=== PATIENT | female | born 1955 | race Caucasian/White ===

== ENCOUNTER → 2020-02-10 07:58 | Outpatient (BNVA) | payer OTHER, SELFPAY | PROVIDERS: PCP Internal Medicine; Referring Provider Internal Medicine; Visit Provider Nurse Practitioner Gerontology | DX: Z76.89 Persons encountering health services in other specified circumstances (principal) ==

== ENCOUNTER 2020-03-25 12:11 | Outpatient (REF) | payer OTHER, SELFPAY ==
[2020-03-25 14:04] LABS: Hematocrit 41.6 % (37-47); Hemoglobin 12.7 g/dl (12.0-16.0); Mean Corpuscular HGB Conc 30.5 g/dl (31.0-35.0); Mean Corpuscular Hemoglobin 26.3 pg (27.0-33.0); Mean Corpuscular Volume 86.3 fL (80-98); Mean Platelet Volume 11.5 fL (9.4-12.3); Platelet Count 253 X10*3/uL (160-400); Red Blood Count 4.82 X10*6/uL (4.20-5.50); Red Cell Distribution Width 15.1 % (11.0-16.0); White Blood Count 8.1 X10*3/uL (4.8-10.8)
[2020-03-25 14:08] LABS: Estimated Average Glucose 148 mg/dL; Hemoglobin A1c % 6.8 %
[2020-03-25 14:37] LABS: Albumin Level 4.3 g/dL (3.5-5.0); Alkaline Phosphatase 267 U/L (39-117); Anion Gap 16 (12-20); Aspartate Amino Transferase 53 U/L (5-31); Bilirubin Total 0.7 mg/dL (0.0-1.0); Blood Urea Nitrogen 10 mg/dL (9-16); C Reactive Protein 0.63 mg/dL (< or = 0.50); Calcium 10.3 mg/dL (8.4-10.2); Carbon Dioxide 28 mmol/L (22-29); Chloride 102 mmol/L (96-108); Estimated Glomerular Filt Rate > 60; Glucose Random 150 mg/dL (60-115); Potassium 3.9 mmol/l (3.3-5.1); Sodium 142 mmol/L (135-145); Total Protein 7.3 g/dL (6.5-8.0)
[2020-03-25 14:51] LABS: Alanine Aminotransferase 644 U/L (0-31)
[2020-03-26 04:02] LABS: Hepatitis A Antibody IgG Nonreactive (Nonreactive); Hepatitis A Antibody IgM 0.17 Index (0-0.79); ~Hepatitis A Antibody IgG 0.61 S/CO (0.00-0.99); ~Hepatitis A Antibody IgM Nonreactive (Nonreactive)
[2020-03-27 01:42] LABS: Lyme Abs Screen <0.90 index
== END 2020-03-25 12:12 | disposition home or self-care (01) ==
LOC: HO.10HDL 12:11
PROVIDERS: Visit Provider Internal Medicine
DX: R79.89 Other specified abnormal findings of blood chemistry (principal); R10.9 Unspecified abdominal pain; E11.9 Type 2 diabetes mellitus without complications; I25.10 Atherosclerotic heart disease of native coronary artery without angina pectoris
CPT/HCPCS: 36415; 80053; 82550; 83036; 85027; 85610; 85730; 86140; 86618; 86708; 86709

== ENCOUNTER 2020-04-01 09:52 | Outpatient (REF) | payer OTHER, SELFPAY ==
[2020-04-01 14:41] LABS: Alanine Aminotransferase 90 U/L (0-31); Albumin Level 4.2 g/dL (3.5-5.0); Alkaline Phosphatase 187 U/L (39-117); Aspartate Amino Transferase 46 U/L (5-31); Bilirubin Direct 0.2 mg/dL (0.0-0.5); Bilirubin Total 0.5 mg/dL (0.0-1.0)
== END 2020-04-01 09:53 | disposition home or self-care (01) ==
LOC: HO.10HDL 09:52
PROVIDERS: PCP Internal Medicine; Visit Provider Internal Medicine
DX: R79.89 Other specified abnormal findings of blood chemistry (principal)
CPT/HCPCS: 80076

== ENCOUNTER 2020-07-02 08:53 | Outpatient (REF) | payer MEDICARE, OTHER, SELFPAY ==
[2020-07-02 10:14] LABS: MANUAL DIFF FLAG NO
[2020-07-02 10:19] LABS: Basophils Percent Auto 0.6 % (0-2); Eosinophils Absolute Auto 0.2 X10*3/uL (0.0-0.4); Eosinophils Percent Auto 3.1 % (0-4); Hematocrit 41.1 % (37-47); Hemoglobin 12.8 g/dl (12.0-16.0); Imm Gran Abs Auto 0.03 X10*3/uL (0.00-0.03); Imm Gran Pct Auto 0.4 % (0.0-0.4); Lymphocytes Absolute Auto 1.9 X10*3/uL (1.2-4.9); Lymphocytes Percent Auto 27.6 % (20-40); Mean Corpuscular HGB Conc 31.1 g/dl (31.0-35.0); Mean Corpuscular Hemoglobin 26.2 pg (27.0-33.0); Mean Platelet Volume 10.5 fL (9.4-12.3); Monocytes Absolute Auto 0.5 X10*3/uL (0.1-1.2); Neutrophils Absolute Auto 4.3 X10*3/uL (2.0-8.3); Neutrophils Percent Auto 61.3 % (45-73); Platelet Count 245 X10*3/uL (160-400); Red Blood Count 4.89 X10*6/uL (4.20-5.50); Red Cell Distribution Width 16.6 % (11.0-16.0)
[2020-07-02 10:30] LABS: Estimated Average Glucose 163 mg/dL; Hemoglobin A1c % 7.3 %
[2020-07-02 10:56] LABS: Alanine Aminotransferase 16 U/L (0-31); Albumin Level 4.2 g/dL (3.5-5.0); Alkaline Phosphatase 122 U/L (39-117); Anion Gap 13 (12-20); Aspartate Amino Transferase 15 U/L (5-31); Bilirubin Total 0.5 mg/dL (0.0-1.0); Blood Urea Nitrogen 12 mg/dL (9-16); Calcium 9.3 mg/dL (8.4-10.2); Carbon Dioxide 29 mmol/L (22-29); Chloride 102 mmol/L (96-108); Cholesterol 292 mg/dL; Estimated Glomerular Filt Rate > 60; Glucose Fasting 171 mg/dL (60-99); HDL Cholesterol 51 mg/dL; LDL Cholesterol Calculated 185 mg/dl; Potassium 4.2 mmol/L (3.3-5.1); Sodium 140 mmol/L (135-145); Total Protein 6.9 g/dL (6.5-8.0); Triglycerides 282 mg/dL
== END 2020-07-02 08:54 | disposition home or self-care (01) ==
LOC: HO.10HDL 08:53
PROVIDERS: Visit Provider Internal Medicine
DX: E11.9 Type 2 diabetes mellitus without complications (principal); I25.10 Atherosclerotic heart disease of native coronary artery without angina pectoris; E78.00 Pure hypercholesterolemia, unspecified
CPT/HCPCS: 36415; 80053; 80061; 83036; 85025

== ENCOUNTER 2020-07-26 10:16 | Outpatient (REF) | payer MEDICARE, OTHER, SELFPAY ==
[2020-07-26 14:18] LABS: Alanine Aminotransferase 16 U/L (0-31); Albumin Level 4.2 g/dL (3.5-5.0); Alkaline Phosphatase 130 U/L (39-117); Anion Gap 13 (12-20); Aspartate Amino Transferase 14 U/L (5-31); Bilirubin Total 0.4 mg/dL (0.0-1.0); Blood Urea Nitrogen 11 mg/dL (9-16); Calcium 9.7 mg/dL (8.4-10.2); Carbon Dioxide 30 mmol/L (22-29); Chloride 102 mmol/L (96-108); Estimated Glomerular Filt Rate > 60; Glucose Random 170 mg/dL (60-115); Potassium 4.5 mmol/L (3.3-5.1); Sodium 140 mmol/L (135-145)
[2020-07-26 14:52] LABS: Creatinine Urine 28.48 mg/dL; Microalbumin Urine < 5.0 mg/L
== END 2020-07-26 10:17 | disposition home or self-care (01) ==
LOC: HO.10HDL 10:16
PROVIDERS: Visit Provider Internal Medicine
DX: E11.9 Type 2 diabetes mellitus without complications (principal); I25.10 Atherosclerotic heart disease of native coronary artery without angina pectoris; E78.00 Pure hypercholesterolemia, unspecified; R74.8 Abnormal levels of other serum enzymes
CPT/HCPCS: 36415; 80053; 82043

== ENCOUNTER → 2020-08-17 08:00 | Outpatient (BNVA) | payer MEDICARE, OTHER, SELFPAY | PROVIDERS: PCP Internal Medicine; Visit Provider Nurse Practitioner Gerontology | DX: E11.40 Type 2 diabetes mellitus with diabetic neuropathy, unspecified (principal); E11.65 Type 2 diabetes mellitus with hyperglycemia; Z79.4 Long term (current) use of insulin; E78.5 Hyperlipidemia, unspecified; E55.9 Vitamin D deficiency, unspecified | CPT/HCPCS: 82947; 99212 ==

== ENCOUNTER 2020-10-04 07:42 | Outpatient (REF) | payer MEDICARE, OTHER, SELFPAY ==
[2020-10-04 09:12] LABS: Alanine Aminotransferase 21 U/L (0-31); Albumin Level 4.4 g/dL (3.5-5.0); Alkaline Phosphatase 115 U/L (39-117); Anion Gap 17 (12-20); Aspartate Amino Transferase 26 U/L (5-31); Bilirubin Total 0.5 mg/dL (0.0-1.0); Blood Urea Nitrogen 7 mg/dL (9-16); Calcium 9.7 mg/dL (8.4-10.2); Carbon Dioxide 26 mmol/L (22-29); Chloride 104 mmol/L (96-108); Cholesterol 167 mg/dL; Estimated Glomerular Filt Rate > 60; Glucose Random 151 mg/dL (60-115); HDL Cholesterol 46 mg/dL; LDL Cholesterol Calculated 74 mg/dl; Potassium 4.6 mmol/L (3.3-5.1); Sodium 142 mmol/L (135-145); Total Protein 7.1 g/dL (6.5-8.0); Triglycerides 237 mg/dL
== END 2020-10-04 07:43 | disposition home or self-care (01) ==
LOC: HO.LAB 07:42
PROVIDERS: PCP Internal Medicine; Visit Provider Internal Medicine
DX: E78.5 Hyperlipidemia, unspecified (principal)
CPT/HCPCS: 36415; 80053; 80061

== ENCOUNTER → 2020-11-15 07:31 | Outpatient (BNVA) | payer MEDICARE, OTHER, SELFPAY | PROVIDERS: PCP Internal Medicine; Visit Provider Nurse Practitioner Gerontology | DX: E11.40 Type 2 diabetes mellitus with diabetic neuropathy, unspecified (principal); E11.65 Type 2 diabetes mellitus with hyperglycemia; E78.5 Hyperlipidemia, unspecified; E55.9 Vitamin D deficiency, unspecified; Z79.4 Long term (current) use of insulin | CPT/HCPCS: 82947; 99212 ==

== ENCOUNTER 2021-01-06 08:14 | Outpatient (REF) | payer MEDICARE, OTHER, SELFPAY ==
[2021-01-06 10:13] LABS: MANUAL DIFF FLAG NO
[2021-01-06 10:16] LABS: Basophils Absolute Auto 0.1 X10*3/uL (0.0-0.2); Basophils Percent Auto 0.8 % (0-2); Eosinophils Absolute Auto 0.3 X10*3/uL (0.0-0.4); Eosinophils Percent Auto 3.4 % (0-4); Hematocrit 43.1 % (37-47); Hemoglobin 13.7 g/dl (12.0-16.0); Imm Gran Abs Auto 0.01 X10*3/uL (0.00-0.03); Imm Gran Pct Auto 0.1 % (0.0-0.4); Lymphocytes Absolute Auto 2.3 X10*3/uL (1.2-4.9); Lymphocytes Percent Auto 27.2 % (20-40); Mean Corpuscular HGB Conc 31.8 g/dl (31.0-35.0); Monocytes Absolute Auto 0.5 X10*3/uL (0.1-1.2); Monocytes Percent Auto 6.3 % (2-11); Neutrophils Absolute Auto 5.2 X10*3/uL (2.0-8.3); Neutrophils Percent Auto 62.2 % (45-73); Platelet Count 241 X10*3/uL (160-400); Red Cell Distribution Width 14.6 % (11.0-16.0); White Blood Count 8.3 X10*3/uL (4.8-10.8)
[2021-01-06 10:37] LABS: Estimated Average Glucose 192 mg/dL; Hemoglobin A1c % 8.3 %
[2021-01-06 10:47] LABS: Alanine Aminotransferase 23 U/L (0-31); Albumin Level 4.3 g/dL (3.5-5.0); Alkaline Phosphatase 125 U/L (39-117); Anion Gap 13 (12-20); Aspartate Amino Transferase 23 U/L (5-31); Bilirubin Total 0.5 mg/dL (0.0-1.0); Blood Urea Nitrogen 10 mg/dL (9-16); Calcium 9.7 mg/dL (8.4-10.2); Carbon Dioxide 28 mmol/L (22-29); Chloride 103 mmol/L (96-108); Estimated Glomerular Filt Rate > 60; Glucose Fasting 174 mg/dL (60-99); Potassium 4.5 mmol/L (3.3-5.1); Sodium 139 mmol/L (135-145); Total Protein 6.8 g/dL (6.5-8.0)
== END 2021-01-06 08:15 | disposition home or self-care (01) ==
LOC: HO.10HDL 08:14
PROVIDERS: Visit Provider Internal Medicine
DX: I10 Essential (primary) hypertension (principal); E11.9 Type 2 diabetes mellitus without complications; I25.10 Atherosclerotic heart disease of native coronary artery without angina pectoris; G25.81 Restless legs syndrome; G43.909 Migraine, unspecified, not intractable, without status migrainosus
CPT/HCPCS: 36415; 80053; 83036; 85025

== ENCOUNTER 2021-02-02 07:24 | Outpatient (REF) | payer MEDICARE, OTHER, SELFPAY ==
--- NOTE | ~2021-02-02 | MM_ITS ---
EXAMINATION: MM SCREENING DIGITAL BREAST TOMOSYNTHESIS, BILATERAL CLINICAL INFORMATION: Screening. Asymptomatic. The lifetime risk of breast cancer based on the Tyrer-Cuzick Model is 7%. COMPARISON: Mammography: 11/17/2019, 02/25/2018, 01/27/2017 TECHNIQUE: Digital breast tomosynthesis is performed in both the craniocaudal and mediolateral oblique views along with computer-aided detection (CAD). Synthesized 2D images are generated from the tomosynthesis. FINDINGS: There are scattered areas of fibroglandular density (ACR BI-RADS breast composition Category b). There are no significant masses, abnormal calcifications, or other abnormalities. Parenchymal pattern is similar to prior exams. No developing density. Again, there are scattered bilateral fine and mildly coarse round calcifications in each breast. No significant changes. MM/MM tomosynthesis screening BI IMPRESSION: No mammographic evidence of malignancy. ASSESSMENT: BI-RADS 2: Benign RECOMMENDATION: Routine annual mammography screening. This patient's information was entered into a reminder system with a target due date for their next mammogram.
== END 2021-02-02 07:25 | disposition home or self-care (01) ==
LOC: HO.MAMMO 07:24
PROVIDERS: PCP Internal Medicine; Visit Provider Internal Medicine
DX: Z12.31 Encounter for screening mammogram for malignant neoplasm of breast (principal)
CPT/HCPCS: 77063; 77067

== ENCOUNTER 2021-03-24 11:06 | Outpatient (REF) | payer MEDICARE, OTHER, SELFPAY ==
[2021-03-24 14:10] LABS: Anion Gap 11 (12-20); Blood Urea Nitrogen 10 mg/dL (9-16); Calcium 9.5 mg/dL (8.4-10.2); Carbon Dioxide 29 mmol/L (22-29); Chloride 103 mmol/L (96-108); Estimated Glomerular Filt Rate > 60; Glucose Random 203 mg/dL (60-115); Potassium 4.5 mmol/L (3.3-5.1); Sodium 138 mmol/L (135-145)
[2021-03-24 14:15] LABS: Estimated Average Glucose 189 mg/dL; Hemoglobin A1c % 8.2 %
[2021-03-24 14:30] LABS: Creatinine Urine 122.01 mg/dL; Microalbum/Creatinine Ratio Ur 18.8 ug/mg cr
== END 2021-03-24 11:07 | disposition home or self-care (01) ==
LOC: HO.10HDL 11:06
PROVIDERS: Visit Provider Internal Medicine
DX: I25.10 Atherosclerotic heart disease of native coronary artery without angina pectoris (principal); I10 Essential (primary) hypertension; E11.9 Type 2 diabetes mellitus without complications; E78.00 Pure hypercholesterolemia, unspecified
CPT/HCPCS: 36415; 80048; 82043; 83036

== ENCOUNTER → 2021-03-29 07:31 | Outpatient (BNVA) | payer MEDICARE, OTHER, SELFPAY | PROVIDERS: PCP Internal Medicine; Visit Provider Nurse Practitioner Gerontology | DX: E11.40 Type 2 diabetes mellitus with diabetic neuropathy, unspecified (principal); E11.65 Type 2 diabetes mellitus with hyperglycemia; E78.5 Hyperlipidemia, unspecified; E55.9 Vitamin D deficiency, unspecified; Z79.4 Long term (current) use of insulin; Z96.41 Presence of insulin pump (external) (internal) | CPT/HCPCS: 82947; 99212 ==

== ENCOUNTER → 2021-03-30 09:01 | Outpatient (BNVA) | payer MEDICARE, OTHER, SELFPAY | PROVIDERS: PCP Internal Medicine; Visit Provider Registered Nurse Diabetes Educator | DX: E11.40 Type 2 diabetes mellitus with diabetic neuropathy, unspecified (principal); Z79.4 Long term (current) use of insulin | CPT/HCPCS: 99211 ==

== ENCOUNTER → 2021-04-06 09:25 | Outpatient (BNVA) | payer MEDICARE, OTHER, SELFPAY | PROVIDERS: PCP Internal Medicine; Visit Provider Registered Nurse Diabetes Educator | DX: E11.40 Type 2 diabetes mellitus with diabetic neuropathy, unspecified (principal); Z79.4 Long term (current) use of insulin | CPT/HCPCS: Q3014 ==

== ENCOUNTER → 2021-05-09 09:49 | Outpatient (BNVA) | payer MEDICARE, OTHER, SELFPAY | PROVIDERS: PCP Internal Medicine; Visit Provider Registered Nurse Diabetes Educator | DX: E11.40 Type 2 diabetes mellitus with diabetic neuropathy, unspecified (principal); Z79.4 Long term (current) use of insulin | CPT/HCPCS: Q3014 ==

== ENCOUNTER → 2021-06-28 07:43 | Outpatient (BNVA) | payer MEDICARE, OTHER, SELFPAY | PROVIDERS: PCP Internal Medicine; Visit Provider Nurse Practitioner Gerontology | DX: E11.40 Type 2 diabetes mellitus with diabetic neuropathy, unspecified (principal); E11.65 Type 2 diabetes mellitus with hyperglycemia; E78.5 Hyperlipidemia, unspecified; E55.9 Vitamin D deficiency, unspecified; Z79.4 Long term (current) use of insulin | CPT/HCPCS: 82947; 83036; 99212 ==

== ENCOUNTER 2021-07-01 14:44 | Outpatient (REF) | payer MEDICARE, OTHER, SELFPAY ==
--- NOTE | ~2021-07-01 | CT_ITS ---
EXAMINATION: CT CHEST SCREENING CLINICAL INFORMATION: Personal history of nicotine dependence. COMPARISON: None. TECHNIQUE: Multidetector volumetric CT imaging of the chest is performed without contrast using low dose technique. Additional 2D coronal and sagittal reformatted images and axial 3D maximum intensity projection (MIP) images are generated on the CT workstation. This CT examination was performed using dose optimization techniques as appropriate, variously including the following: *Automated exposure control *Adjustment of mA and/or kV according to patient size (this includes techniques or standardized protocols for targeted exams where dose is matched to indication/reason for exam; i.e. extremities or head) *Use of iterative reconstruction technique DLP: 75 mGy-cm FINDINGS: LUNGS: The lungs are well expanded and clear of acute pneumonic process. There are punctate ground-glass nodular opacities measuring 2 mm in the right upper lobe axial image 22/4, a 2 mm nodule in the right major fissure axial image 26/4, a peripherally based 2 mm nodule right upper lobe axial image 26/4, a subpleural-based 2 mm nodule right lower lobe axial image 37/4. No additional nodules seen. No acute pneumonic consolidation. MEDIASTINUM: The thyroid lobes are symmetrical and normal. The central trachea and bronchi are widely patent. Heart size and the great vessels are normal caliber. Small shotty precarinal lymph node is seen measuring 8 mm. There is trace coronary artery calcifications present. No pericardial effusion seen. No abnormal-sized mediastinal or hilar lymph nodes. PLEURA: There is no pleural effusion. No pleural mass or thickening. AXILLA: No lymphadenopathy. UPPER ABDOMEN: Visualized liver, spleen, pancreas and bilateral adrenal glands are unremarkable. OSSEOUS STRUCTURES: No aggressive lytic or sclerotic process seen. There is mild ventral spondylosis. CT/CT lung screening IMPRESSION: Small tumor nodules as described above. No acute consolidation or mass seen. No abnormal lymphadenopathy. ASSESSMENT: Lung-RADS category 2: Benign. RECOMMENDATION: Low-dose annual CT chest exam.
== END 2021-07-01 14:45 | disposition home or self-care (01) ==
LOC: HO.CT 14:44
PROVIDERS: Visit Provider Physician Assistant Medical
DX: Z12.2 Encounter for screening for malignant neoplasm of respiratory organs (principal); Z87.891 Personal history of nicotine dependence
CPT/HCPCS: 71271; G0296

== ENCOUNTER 2021-08-09 08:00 | Outpatient (REF) | payer MEDICARE, OTHER, SELFPAY ==
[2021-08-09 09:23] LABS: Glucose Fasting 187 mg/dL (60-99)
[2021-08-10 06:36] LABS: C Peptide 2.28 ng/mL (0.80-3.85)
[2021-08-12 22:02] LABS: Glutamic acid decarboxylase Ab <5 IU/mL (<5)
== END 2021-08-09 08:01 | disposition home or self-care (01) ==
LOC: HO.LAB 08:00
PROVIDERS: Absent Provider Nurse Practitioner Gerontology; PCP Internal Medicine; Visit Provider Registered Nurse Diabetes Educator
DX: E11.40 Type 2 diabetes mellitus with diabetic neuropathy, unspecified (principal); Z79.4 Long term (current) use of insulin
CPT/HCPCS: 36415; 82947; 84681; 86341; 99211

== ENCOUNTER → 2021-09-05 11:25 | Outpatient (BNVA) | payer MEDICARE, OTHER, SELFPAY | PROVIDERS: PCP Internal Medicine; Visit Provider Registered Nurse Diabetes Educator | DX: E11.40 Type 2 diabetes mellitus with diabetic neuropathy, unspecified (principal); Z79.4 Long term (current) use of insulin; Z96.41 Presence of insulin pump (external) (internal) | CPT/HCPCS: 99211 ==

== ENCOUNTER → 2021-10-05 08:00 | Outpatient (BNVA) | payer MEDICARE, OTHER, SELFPAY | PROVIDERS: PCP Internal Medicine; Visit Provider Registered Nurse Diabetes Educator | DX: Z46.81 Encounter for fitting and adjustment of insulin pump (principal); E11.40 Type 2 diabetes mellitus with diabetic neuropathy, unspecified; Z79.4 Long term (current) use of insulin | CPT/HCPCS: 99211 ==

== ENCOUNTER 2021-10-27 06:34 | Outpatient (REF) | payer MEDICARE, OTHER, SELFPAY ==
[2021-10-27 06:52] LABS: MANUAL DIFF FLAG NO
[2021-10-27 07:24] LABS: Basophils Percent Auto 0.6 % (0-2); Eosinophils Absolute Auto 0.2 X10*3/uL (0.0-0.4); Hematocrit 42.6 % (37.0-47.0); Hemoglobin 13.6 g/dl (12.0-16.0); Imm Gran Abs Auto 0.03 X10*3/uL (0.00-0.03); Imm Gran Pct Auto 0.4 % (0.0-0.4); Lymphocytes Percent Auto 29.2 % (20-40); Mean Corpuscular HGB Conc 31.9 g/dl (31.0-35.0); Mean Corpuscular Hemoglobin 28.6 pg (27.0-33.0); Mean Corpuscular Volume 89.5 fL (80.0-98.0); Mean Platelet Volume 10.4 fL (9.4-12.3); Monocytes Absolute Auto 0.5 X10*3/uL (0.1-1.2); Monocytes Percent Auto 6.5 % (2-11); Neutrophils Absolute Auto 4.2 x10*3/uL (2.0-8.3); Neutrophils Percent Auto 60.3 % (45-73); Platelet Count 213 X10*3/uL (160-400); Red Blood Count 4.76 X10*6/uL (4.20-5.50); Red Cell Distribution Width 14.4 % (11.0-16.0); White Blood Count 6.9 X10*3/uL (4.8-10.8)
[2021-10-27 07:43] LABS: Estimated Average Glucose 171 mg/dL; Hemoglobin A1c % 7.6 %
[2021-10-27 07:44] LABS: Alanine Aminotransferase 19 U/L (0-31); Albumin Level 4.1 g/dL (3.5-5.0); Alkaline Phosphatase 127 U/L (39-117); Anion Gap 14 (12-20); Aspartate Amino Transferase 18 U/L (5-31); Bilirubin Total 0.5 mg/dL (0.0-1.0); Blood Urea Nitrogen 9 mg/dL (9-16); Calcium 9.1 mg/dL (8.4-10.2); Carbon Dioxide 27 mmol/L (22-29); Chloride 103 mmol/L (96-108); Estimated Glomerular Filt Rate > 60; Glucose Fasting 164 mg/dL (60-99); Potassium 4.3 mmol/L (3.3-5.1); Sodium 140 mmol/L (135-145); Total Protein 6.9 g/dL (6.5-8.0)
[2021-10-27 07:47] LABS: Alanine Aminotransferase 19 U/L (0-31); Albumin Level 4.1 g/dL (3.5-5.0); Alkaline Phosphatase 127 U/L (39-117); Anion Gap 15 (12-20); Aspartate Amino Transferase 18 U/L (5-31); Bilirubin Total 0.5 mg/dL (0.0-1.0); Blood Urea Nitrogen 10 mg/dL (9-16); Calcium 8.9 mg/dL (8.4-10.2); Carbon Dioxide 28 mmol/L (22-29); Chloride 103 mmol/L (96-108); Cholesterol 170 mg/dL; Estimated Glomerular Filt Rate > 60; Glucose Fasting 164 mg/dL (60-99); HDL Cholesterol 52 mg/dL; LDL Cholesterol Calculated 80 mg/dl; Sodium 141 mmol/L (135-145); Triglycerides 192 mg/dL
[2021-10-27 08:09] LABS: Vitamin D 25-OH Total 46.9 ng/mL (>30)
[2021-10-29 10:47] LABS: LDL Cholesterol Direct 103 mg/dL (<100)
== END 2021-10-27 06:35 | disposition home or self-care (01) ==
LOC: HO.LAB 06:34
PROVIDERS: Absent Provider Internal Medicine; PCP Internal Medicine; Visit Provider Nurse Practitioner Gerontology
DX: E78.00 Pure hypercholesterolemia, unspecified (principal); G25.81 Restless legs syndrome; I10 Essential (primary) hypertension; I25.10 Atherosclerotic heart disease of native coronary artery without angina pectoris; E55.9 Vitamin D deficiency, unspecified; E11.40 Type 2 diabetes mellitus with diabetic neuropathy, unspecified; Z79.4 Long term (current) use of insulin
CPT/HCPCS: 36415; 80053; 80061; 82306; 83036; 83721; 85025

== ENCOUNTER → 2021-11-17 14:53 | Outpatient (BNVA) | payer MEDICARE, OTHER, SELFPAY | PROVIDERS: PCP Internal Medicine; Visit Provider Registered Nurse Diabetes Educator | DX: Z46.81 Encounter for fitting and adjustment of insulin pump (principal); E11.40 Type 2 diabetes mellitus with diabetic neuropathy, unspecified | CPT/HCPCS: 99211 ==

== ENCOUNTER 2022-02-08 07:26 | Outpatient (REF) | payer MEDICARE, OTHER, SELFPAY ==
--- NOTE | ~2022-02-08 | MM_ITS ---
EXAMINATION: MM SCREENING DIGITAL BREAST TOMOSYNTHESIS, BILATERAL CLINICAL INFORMATION: Screening. Asymptomatic. The lifetime risk of breast cancer based on the Tyrer-Cuzick Model is 6%. COMPARISON: Mammography: February 02, 2021 and studies dating back to June 01, 2011 TECHNIQUE: Digital breast tomosynthesis is performed in both the craniocaudal and mediolateral oblique views along with computer-aided detection (CAD). Synthesized 2D images are generated from the tomosynthesis. FINDINGS: There are scattered areas of fibroglandular density (ACR BI-RADS breast composition Category b). There are no significant masses, abnormal calcifications, or other abnormalities. MM/MM tomosynthesis screening BI IMPRESSION: No significant changes from prior exam. ASSESSMENT: BI-RADS 1: Negative RECOMMENDATION: Routine annual mammography screening. This patient's information was entered into a reminder system with a target due date for their next mammogram.
== END 2022-02-08 07:27 | disposition home or self-care (01) ==
LOC: HO.MAMMO 07:26
PROVIDERS: PCP Internal Medicine; Visit Provider Internal Medicine
DX: Z12.31 Encounter for screening mammogram for malignant neoplasm of breast (principal)
CPT/HCPCS: 77063; 77067

== ENCOUNTER → 2022-02-21 07:58 | Outpatient (BNVA) | payer MEDICARE, OTHER, SELFPAY | PROVIDERS: PCP Internal Medicine; Visit Provider Internal Medicine Endocrinology, Diabetes & Metabolism | DX: E11.40 Type 2 diabetes mellitus with diabetic neuropathy, unspecified (principal); Z79.4 Long term (current) use of insulin; Z96.41 Presence of insulin pump (external) (internal) | CPT/HCPCS: 36415; 80053; 80061; 82043; 82947; 83036; 85025; 99212 ==

== ENCOUNTER 2022-02-21 08:54 | Outpatient (REF) | payer MEDICARE, OTHER, SELFPAY ==
[2022-02-21 10:34] LABS: MANUAL DIFF FLAG NO
[2022-02-21 10:43] LABS: Basophils Absolute Auto 0.1 X10*3/uL (0.0-0.2); Basophils Percent Auto 0.7 % (0-2); Eosinophils Absolute Auto 0.1 X10*3/uL (0.0-0.4); Eosinophils Percent Auto 1.7 % (0-4); Hematocrit 41.2 % (37.0-47.0); Hemoglobin 13.1 g/dl (12.0-16.0); Imm Gran Abs Auto 0.02 X10*3/uL (0.00-0.03); Imm Gran Pct Auto 0.3 % (0.0-0.4); Lymphocytes Absolute Auto 1.7 X10*3/uL (1.2-4.9); Mean Corpuscular HGB Conc 31.8 g/dl (31.0-35.0); Mean Corpuscular Hemoglobin 28.5 pg (27.0-33.0); Mean Corpuscular Volume 89.8 fL (80.0-98.0); Monocytes Absolute Auto 0.5 X10*3/uL (0.1-1.2); Monocytes Percent Auto 6.4 % (2-11); Neutrophils Absolute Auto 4.8 x10*3/uL (2.0-8.3); Neutrophils Percent Auto 66.9 % (45-73); Platelet Count 194 X10*3/uL (160-400); Red Blood Count 4.59 X10*6/uL (4.20-5.50); Red Cell Distribution Width 14.2 % (11.0-16.0); White Blood Count 7.2 X10*3/uL (4.8-10.8)
[2022-02-21 11:11] LABS: Estimated Average Glucose 186 mg/dL; Hemoglobin A1c % 8.1 %
[2022-02-21 11:12] LABS: Alanine Aminotransferase 29 U/L (0-31); Albumin Level 4.1 g/dL (3.5-5.0); Alkaline Phosphatase 107 U/L (39-117); Anion Gap 16 (12-20); Aspartate Amino Transferase 27 U/L (5-31); Bilirubin Total 0.2 mg/dL (0.0-1.0); Blood Urea Nitrogen 10 mg/dL (9-16); Carbon Dioxide 25 mmol/L (22-29); Chloride 101 mmol/L (96-108); Cholesterol 162 mg/dL; Estimated Glomerular Filt Rate > 60; Glucose Fasting 177 mg/dL (60-99); HDL Cholesterol 50 mg/dL; LDL Cholesterol Calculated 75 mg/dl; Potassium 4.3 mmol/L (3.3-5.1); Sodium 138 mmol/L (135-145); Total Protein 6.6 g/dL (6.5-8.0); Triglycerides 186 mg/dL
[2022-02-21 12:32] LABS: Creatinine Urine 83.94 mg/dL; Microalbum/Creatinine Ratio Ur 17.8 ug/mg cr
== END 2022-02-21 08:55 | disposition home or self-care (01) ==
LOC: HO.10HDL 08:54
PROVIDERS: Visit Provider Internal Medicine
DX: Z13.89 Encounter for screening for other disorder (principal)
CPT/HCPCS: 36415; 80053; 80061; 82043; 83036; 85025

== ENCOUNTER 2022-04-03 07:55 | Outpatient (REF) | payer MEDICARE, OTHER, SELFPAY ==
--- NOTE | ~2022-04-03 | US_ITS ---
EXAMINATION: US ABDOMEN COMPLETE CLINICAL INFORMATION: Right upper quadrant pain. COMPARISON: None TECHNIQUE: Real-time imaging of the abdominal viscera. FINDINGS: PANCREAS: Normal. ABDOMINAL AORTA: The proximal, mid, and distal segments are normal in caliber. INFERIOR VENA CAVA: Visualized portions are normal. LIVER: Liver size is enlarged measuring 20.3 cm in length. The liver contour is normal. There is increased liver echogenicity with areas of focal fatty sparing. No focal hepatic lesion. There is no intrahepatic biliary duct dilatation seen. GALLBLADDER: Surgically absent. COMMON BILE DUCT: Normal in caliber measuring 0.5 cm in diameter. RIGHT KIDNEY: Normal. No hydronephrosis. No renal calculi or focal parenchymal lesions. The kidney measures 11.6 cm in maximum dimension. LEFT KIDNEY: A prominent dromedary hump is noted. No hydronephrosis. No renal calculi or focal parenchymal lesions. The kidney measures 11.8 cm in maximum dimension. SPLEEN: Normal. The spleen measures 12.7 cm in maximum dimension. FREE FLUID: None. US/US abdomen complete IMPRESSION: Increased liver echogenicity with focal fatty sparing. Mild hepatomegaly. Prominent dromedary hump left kidney. Rest of the abdominal ultrasound is unremarkable.
== END 2022-04-03 07:56 | disposition home or self-care (01) ==
LOC: HO.US 07:55
PROVIDERS: Visit Provider Internal Medicine
DX: R10.11 Right upper quadrant pain (principal); Z90.49 Acquired absence of other specified parts of digestive tract
CPT/HCPCS: 76700

== ENCOUNTER → 2022-04-04 07:52 | Outpatient (BNVA) | payer MEDICARE, OTHER, SELFPAY | PROVIDERS: PCP Internal Medicine; Visit Provider Registered Nurse Diabetes Educator | DX: E11.40 Type 2 diabetes mellitus with diabetic neuropathy, unspecified (principal); Z79.4 Long term (current) use of insulin; Z96.41 Presence of insulin pump (external) (internal) | CPT/HCPCS: 99211 ==

== ENCOUNTER 2022-05-16 10:27 | Outpatient (REF) | payer MEDICARE, OTHER, SELFPAY ==
--- NOTE | ~2022-05-16 | US_ITS ---
EXAMINATION: US LOWER EXTREMITY (REFLUX EXAM), LEFT CLINICAL INDICATION: Varicose veins COMPARISON: None. TECHNIQUE: Color flow triplex imaging and compression Doppler was performed to evaluate both the deep and the superficial systems of the left lower extremity. To evaluate the superficial system, the examination was performed in the upright position. Color-flow Doppler ultrasound and compression ultrasound were utilized. In addition, maneuvers were utilized to demonstrate reflux. FINDINGS: 1. DEEP VENOUS DOPPLER ULTRASOUND: Common Femoral Vein: Compressible, normal respiratory variation and augmented flow. Femoral Vein: Compressible, normal color flow and augmentation. Popliteal Vein: Compressible, normal augmentation. Deep Reflux: There is no evidence of reflux in the deep system in either the common femoral vein or the popliteal vein. There is no evidence of a Bills's cyst. 2. SUPERFICIAL VENOUS DOPPLER ULTRASOUND: GREAT SAPHENOUS VEIN: Saphenofemoral Junction: 1.3 cm; Reflux: 0 ms Proximal Thigh: 0.8 cm; Reflux: 3388 ms Mid Thigh: 0.5 cm; Reflux: 0 ms Above Knee: 0.4 cm; Reflux: 0 ms At Knee: 0.3 cm; Reflux: 0 ms Below Knee: 0.3 cm; Reflux: 732 ms Mid Calf: 0.2 cm; Reflux: 0 ms Ankle: 0.3 cm; Reflux: 1096 ms DUPLICATED MEDIAL GREAT SAPHENOUS VEIN: Diameter: None Imaged Reflux: NA DUPLICATED LATERAL GREAT SAPHENOUS VEIN: Proximal: 0.3 cm; Reflux: 2288 ms Distal: 0.3 cm; Reflux: 0 ms SMALL SAPHENOUS VEIN: Proximal: 0.3 cm; Reflux: 0 ms Distal: 0.3 cm; Reflux: 0 ms VEIN OF GIACOMINI: None Imaged. PERFORATORS: Location: [place]cal[place] (2) Size: 0.2-0.3 cm Reflux: NA VARICOSITIES: Location: Numerous through the calf and thigh Size: 0.3-0.5 cm Reflux: All demonstrate reflux varying from 584 ms-3308 ms US/US venous duplex LE LT IMPRESSION: 1. Left great saphenous venous insufficiency. 2. Multiple refluxing varicosities throughout the left lower extremity.
== END 2022-05-16 10:28 | disposition home or self-care (01) ==
LOC: HO.US 10:27
PROVIDERS: PCP Internal Medicine; Visit Provider Internal Medicine
DX: R22.43 Localized swelling, mass and lump, lower limb, bilateral (principal); I83.90 Asymptomatic varicose veins of unspecified lower extremity
CPT/HCPCS: 93971

== ENCOUNTER → 2022-05-25 08:05 | Outpatient (BNVA) | payer MEDICARE, OTHER, SELFPAY | PROVIDERS: PCP Internal Medicine; Visit Provider Internal Medicine Endocrinology, Diabetes & Metabolism | DX: Z79.4 Long term (current) use of insulin (principal); Z96.41 Presence of insulin pump (external) (internal) | CPT/HCPCS: 82947; 83036; 99212 ==

== ENCOUNTER 2022-08-14 08:57 | Outpatient (REF) | payer MEDICARE, OTHER, SELFPAY ==
--- NOTE | ~2022-08-14 | CT_ITS ---
EXAMINATION: CT CHEST SCREENING CLINICAL INFORMATION: Personal history of nicotine dependence. One pack per day for 50 years[address] Current smoker. CT lung 07/01/2021. COMPARISON: CT chest 07/01/2021 TECHNIQUE: Multidetector volumetric CT imaging of the chest is performed without contrast using low dose technique. Additional 2D coronal and sagittal reformatted images and axial 3D maximum intensity projection (MIP) images are generated on the CT workstation. This CT examination was performed using dose optimization techniques as appropriate, variously including the following: *Automated exposure control *Adjustment of mA and/or kV according to patient size (this includes techniques or standardized protocols for targeted exams where dose is matched to indication/reason for exam; i.e. extremities or head) *Use of iterative reconstruction technique DLP: 75 mGy-cm. FINDINGS: LUNGS: The lungs are well expanded and clear of pneumonic process. There are punctate right upper lobe subpleural 2 mm nodules image 408/6, 385/6, 369/6, 329/6. Ill-defined ground-glass density seen in right upper lobe axial image 329/6, ground-glass 2 mm nodule left lower lobe superior segment image 336/6, focal thickening along the right major fissure image 402/6, ground-glass opacities in right middle lobe. MEDIASTINUM: The thyroid lobes are symmetrical and normal. Heart size and the great vessels are normal caliber. Central trachea and bronchi are widely patent. No abnormal-sized mediastinal or hilar lymph nodes. CORONARY ARTERY CALCIFICATION: Moderate coronary artery calcifications are seen. PLEURA: There is no pleural effusion. No pleural mass or thickening. AXILLA: No lymphadenopathy. UPPER ABDOMEN: Visualized liver, spleen, pancreas and bilateral adrenal glands are unremarkable. OSSEOUS STRUCTURES: No aggressive lytic or sclerotic process seen. There is mild spondylosis throughout. CT/CT lung screening IMPRESSION: Scattered 2 mm nodules and groundglass density as described above. Few new subpleural 2 mm nodules are more apparent on the present exam. The ground-glass densities are unchanged. ASSESSMENT: Lung-RADS category 2: Benign. RECOMMENDATION: Low-dose annual CT chest.
== END 2022-08-14 08:58 | disposition home or self-care (01) ==
LOC: HO.CT 08:57
PROVIDERS: PCP Internal Medicine; Visit Provider Physician Assistant Medical
DX: Z12.2 Encounter for screening for malignant neoplasm of respiratory organs (principal); Z87.891 Personal history of nicotine dependence
CPT/HCPCS: 71271

== ENCOUNTER 2022-08-24 06:32 | Outpatient (REF) | payer MEDICARE, OTHER, SELFPAY ==
[2022-08-24 07:47] LABS: Anion Gap 14 (12-20); Blood Urea Nitrogen 11 mg/dL (9-16); Calcium 9.9 mg/dL (8.4-10.2); Carbon Dioxide 27 mmol/L (22-29); Chloride 103 mmol/L (96-108); Estimated Glomerular Filt Rate > 60; Glucose Random 118 mg/dL (60-115); Potassium 4.2 mmol/L (3.3-5.1); Sodium 140 mmol/L (135-145)
== END 2022-08-24 06:33 | disposition home or self-care (01) ==
LOC: HO.LAB 06:32
PROVIDERS: PCP Internal Medicine; Visit Provider Internal Medicine Endocrinology, Diabetes & Metabolism
DX: E11.40 Type 2 diabetes mellitus with diabetic neuropathy, unspecified (principal); Z79.4 Long term (current) use of insulin
CPT/HCPCS: 36415; 80048

== ENCOUNTER → 2022-08-30 08:18 | Outpatient (BNVA) | payer MEDICARE, OTHER, SELFPAY | PROVIDERS: PCP Internal Medicine; Visit Provider Internal Medicine Endocrinology, Diabetes & Metabolism | DX: E11.40 Type 2 diabetes mellitus with diabetic neuropathy, unspecified (principal); Z79.4 Long term (current) use of insulin | CPT/HCPCS: 82947; 83036; 99212 ==

== ENCOUNTER → 2022-10-12 08:29 | Outpatient (BNVA) | payer MEDICARE, OTHER, SELFPAY | PROVIDERS: PCP Internal Medicine; Visit Provider Registered Nurse Diabetes Educator | DX: E11.40 Type 2 diabetes mellitus with diabetic neuropathy, unspecified (principal); Z46.81 Encounter for fitting and adjustment of insulin pump | CPT/HCPCS: 99211 ==

== ENCOUNTER 2022-12-14 07:55 | Outpatient (AMB) | payer MEDICARE, OTHER, SELFPAY ==
[2022-12-14 07:59] VITALS: BP 100/60; PULSE 60; BMI 34.5
--- NOTE | 2022-12-14 07:59 | A.OFFVIS_ITS ---
Intake Vital Signs 12/14/22 07:59 Height 5 ft 8 in Weight 227 lb 1.218 oz BMI 34.5 BP 100/60 Blood Pressure Location Lt brachial Position Sitting Pulse 60 Pulse Source Pulse Oximeter Intake Visit Reasons: f/u Type 2 DM Intake Note: Patient presents today to follow up on Type 2 Diabetes Mellitus. 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: No Accompanied by: Self / Same As Patient Allergies azithromycin [From ZITHROMAX] Allergy (Unknown, Verified 12/14/22 08:04) RASH bee pollen [BEE STINGS] Allergy (Unknown, Verified 12/14/22 08:04) ANAPHYLAXIS erythromycin base [ERYTHROMYCIN BASE] Allergy (Unknown, Verified 12/14/22 08:04) RASH morphine [MORPHINE] Allergy (Unknown, Verified 12/14/22 08:04) BRADYCARDIA, heart rate slows down neomycin Allergy (Unknown, Verified 12/14/22 08:04) adema bees Allergy (Unknown, Uncoded 08/30/22 08:24) anaphylaxis Taurine Allergy (Unknown, Uncoded 08/30/22 08:24) hives Medication List - Last Reconciled 12/14/22 by Finn Sales MD albuterol sulfate 90 mcg/actuation inhalation aspirin (Adult Aspirin Regimen) 81 mg PO DAILY blood-glucose sensor (Dexcom G6 Sensor device) As directed 1 every 10 days blood-glucose transmitter (Dexcom G6 Transmitter device) As directed 1 every 3 months [id number] 50-300-40 mg (Fioricet) 1 cap PO TID PRN cholecalciferol (vitamin D3) (Vitamin D3) 50 mcg PO DAILY diltiazem HCl 240 mg PO DAILY epinephrine (EpiPen) 0.3 mg IM Q10M PRN gabapentin 300 mg PO TID insulin aspart U-100 (Novolog U-100 Insulin aspart) 300 units (3 mL) subcut Q2D 30 days nortriptyline 75 mg PO BEDTIME omeprazole 20 mg PO DAILY prochlorperazine maleate (Compazine) 10 mg PO Q8H PRN ropinirole (Requip) 4 mg PO BEDTIME ropinirole 4 mg PO BEDTIME rosuvastatin 40 mg PO DAILY semaglutide (Ozempic) 1 mg (0.75 mL) subcut QWEEK subcutaneous insulin pump As directed Tandem Pump HPI HPI Comments History of Present Illness Details Patient is 67 yo female with DM type 2 diagnosed around 2004, for management of her diabetes. . Past medical history includes HLD, RLS. Micro and macrovascular complications include neuropathy, CAD. Diabetes medications currently prescribed: Novlog via T-slim X2 pump with control IQ t on Ozempic 1 mg , Intolerant of metformin due to gastric upset. 51% basal, 38% bolus, Today daily dose 60.87, . Omnipod insulin pump Basal Setting ?12 AM to 12 PM 2.25 units / hr 12 PM to 4 PM 2.0 4 PM to 12 AM 2.5 Bolus setting Insulin Carbohydrate Ratio (s) 12 AM? to 12 AM? 1:7 Correction Factor / Sensitivity Factor 12 AM? to 12 PM? 1:29 12 PM to? 12 AM? 1:26 Active Insulin Time:? 5 hours Target(s): 12 AM? to 12 PM? 110 mg/dL Continuous glucose monitoring: Average blood glucose for the last 2 weeks time in use 86% avg glucose 135,, . Average Dexc gl 135 with range of 41-308. 90% range with 9% hyperglycemia and 1% hypoglycemia for a ucose om pattern shows Symptoms reported: + numbness, tingling, cramping in lower extremities. Hypoglycemia: denies occ but doesn't feel lows Exercise: Limited. Eye exam: 06/2022 - no retinopathy Laboratory Tests 11/15/20 03/24/21 03/24/21 07:59 11:11 11:11 Creatinine 0.83 Estimated GFR > 60 Hgb A1c (Clinic) 8.1 H Hemoglobin A1c % 8.2 Microalb/Creat Rat io 03/24/21 11:11 Creatinine Estimated GFR Hgb A1c (Clinic) Hemoglobin A1c % Microalb/Creat Rat io 18.8 Laboratory Tests 10/04/20 11/15/20 03/24/21 07:55 07:59 11:11 Creatinine 0.83 Estimated GFR > 60 Hgb A1c (Clinic) 8.1 H Hemoglobin A1c % Triglycerides 237 Cholesterol 167 D LDL Cholesterol, C alc 74 HDL Cholesterol 46 03/24/21 11:11 Creatinine Estimated GFR Hgb A1c (Clinic) Hemoglobin A1c % 8.2 Triglycerides Cholesterol LDL Cholesterol, C alc HDL Cholesterol Laboratory Tests 07/02/20 07/26/20 10/04/20 09:00 09:30 07:55 Creatinine 0.78 Estimated GFR > 60 Hemoglobin A1c % 7.3 Triglycerides 237 Cholesterol 167 D LDL Cholesterol, C alc 74 HDL Cholesterol 46 Microalb/Creat Rat io TNP [facility] Medical History (Updated 07/01/21 @ 14:45 by Cordelia Sheffield PA-C) Arthritis CAD (coronary artery disease) History of KS (myocardial infarction) (~2011) Hyperlipidemia LDL goal <70 Neuropathy Obesity Personal history of nicotine dependence Tubular adenoma of colon (~2000) Type 2 diabetes mellitus with diabetic neuropathy, unspecified (~2004) Vitamin D deficiency Surgical History History of appendectomy History of bilateral breast reduction surgery History of colonoscopy History of foot surgery History of heart artery stent History of laparoscopic cholecystectomy History of tubal ligation Family History Father Diabetes mellitus CVD (cardiovascular disease) Mother Oral cancer Brother Diabetes mellitus Social History Household Members: Spouse Patient Tobacco Use Status: Former Tobacco user Cigarette Packs Per Day: 1 Years Smoked: 25 Physical Exam Vital Signs: Last Vital Signs Pulse 60 12/14/22 07:59 BP 100/60 12/14/22 07:59 BMI result Body Mass Index 34.5 Absence of Cushingoid features. Absence of acromegalic features. Neck exam reveals nl size thyroid about 15 gms. No thyroid nodules palpable. No carotid bruits present. Lungs CTA. Heart S1 S2, Reg R/R. No M/R/ G. Skin exam reveals absence of vitiligo or acanthosis nigricans. Abdominal exam reveals Soft NT/ND with NA BS. No organomegaly present. Neck Other: . Extrem Other: Visual exam of foot performed. No ulcerations or open lesions. No onchomycosis, no callouses.Pulses 2 + distally Sensation decreased to monofilament exam. Vibratory sensation sensed is decreased with 128 Hz tuning fork Results AMB Hemoglobin A1c AMB Hemoglobin A1c 6.3 % Last Edit by Lisa Pinon on 12/14/22 08:21 Results Reviewed Results Reviewed: 12/14/22 08:09 Glucose, Whole Blood Routine Laboratory Last Values Glucose (Clinic) 103 mg/dL (60-115) 12/14/22 08:09 Assessment & Plan Assessment & Plan (1) Type 2 diabetes mellitus with diabetic neuropathy, unspecified: Onset Date: ~2004 Comment: (IDDM2, with neuropathy) Code(s): E11.40 - Type 2 diabetes mellitus with diabetic neuropathy, unspecified Qualifiers: Diabetes mellitus chcf insulin use: with chcf use Qualified Code(s): E11.40 - Type 2 diabetes mellitus with diabetic neuropathy, unspecified; Z79.4 - shelter (current) use of insulin Plan: This 67-year-old white female with history of type 2 diabetes being managed with Omnipod T-slim X 2 pump with excellent glycemic control and known microvascular complications namely neuropathy and macrovascular complications of CAD. The plan is to continue the current settings. Patient should follow-up with the early childhood educator aide. Orders: Orders AMB Hemoglobin A1c Today E11.40 - Type 2 diabetes mellitus with diabetic neuropathy, unspecified Coding Level of Care Code Est Pt Level 4 (86188) Diagnoses Type 2 diabetes mellitus with diabetic neuropathy, unspecified E11.40; Z79.4 Diabetes mellitus intermission coordinator insulin use: with intermission coordinator use
[2022-12-14 08:13] LABS: Glucose, Whole Blood 103 mg/dL (60-115)
== END 2022-12-14 08:18 | disposition home or self-care (01) ==
PROVIDERS: PCP Internal Medicine; Visit Provider Internal Medicine Endocrinology, Diabetes & Metabolism
DX: E11.40 Type 2 diabetes mellitus with diabetic neuropathy, unspecified (principal); Z79.4 Long term (current) use of insulin
CPT/HCPCS: 99214

== ENCOUNTER → 2022-12-14 07:55 | Outpatient (BNVA) | payer MEDICARE, OTHER, SELFPAY | PROVIDERS: Visit Provider Internal Medicine Endocrinology, Diabetes & Metabolism | DX: E11.40 Type 2 diabetes mellitus with diabetic neuropathy, unspecified (principal); Z96.41 Presence of insulin pump (external) (internal) | CPT/HCPCS: 82947; 83036; 99212 ==

== ENCOUNTER 2023-02-15 07:22 | Outpatient (REF) | payer MEDICARE, OTHER, SELFPAY ==
--- NOTE | ~2023-02-15 | MM_ITS ---
EXAMINATION: MM SCREENING DIGITAL BREAST TOMOSYNTHESIS, BILATERAL CLINICAL INFORMATION: Screening. Asymptomatic. Patient is status post breast reduction. COMPARISON: Mammography: This study is compared with prior exams dating back to 2017. TECHNIQUE: Digital breast tomosynthesis is performed in both the craniocaudal and mediolateral oblique views along with computer-aided detection (CAD). Synthesized 2D images are generated from the tomosynthesis. FINDINGS: There are scattered areas of fibroglandular density (ACR BI-RADS breast composition Category b). There are no significant masses, abnormal calcifications, or other abnormalities. Few, benign calcifications and post reduction changes are present in each breast. MM/MM tomosynthesis screening BI IMPRESSION: No mammographic evidence of malignancy. ASSESSMENT: BI-RADS BI-RADS 2 - Benign Findings RECOMMENDATION: Routine annual mammography screening. 1 year F/U This examination should not preclude the clinical evaluation of a suspicious palpable abnormality. This patient's information was entered into a reminder system with a target due date for their next mammogram.
--- NOTE | ~2023-02-15 | MM_ITS ---
EXAMINATION: BONE DENSITOMETRY CLINICAL INDICATION: Menopause. COMPARISON: Baseline BD dated 10/08/2006. TECHNIQUE: Using a [employer] DXA System (software version: 13.1) manufactured by [employer], dual-energy x-ray absorptiometry was performed of the lumbar spine and left hip. The images are of good technical quality. Summary results are attached. FINDINGS: LEFT FEMUR, NECK: Current: BMD 1.101 g/cm2, Z-score 1.3, T-score 0.5, normal. Baseline: BMD 1.065 g/cm2. LEFT FEMUR, TOTAL: Current: BMD 1.153 g/cm2, Z-score 1.7, T-score 1.2, normal, 6.0% decrease from baseline (<5% change is not significant). Baseline: BMD 1.227 g/cm2. AP SPINE L3-L4 (excluding L1 and L2): The data of L1-L4 has been changed to exclude the L1 and L2 vertebral bodies, because degenerative sclerosis at these levels may cause overestimation of lumbar spine density. Current: BMD 0.974 g/cm2, Z-score -1.4, T-score -1.9, osteopenia, 0.9% increase from baseline (<5% change is not significant). Baseline: BMD 0.965 g/cm2. IDENTIFIED RISK FACTORS: Menopause, osteoporosis, low calcium intake, family history (parent hip fracture). HISTORY OF FRACTURE: None listed. MEDICATIONS: Vitamin D. MM/XR DEXA axial skeleton IMPRESSION: 1. DIAGNOSIS: Osteopenia based on the lowest T-score value of -1.9 in the lumbar spine applying World Health Organization criteria. 2. 10-YEAR FRACTURE RISK PREDICTION, FRAX: Major osteoporotic fracture (clinical spine, forearm, hip or shoulder) 10.1%. Hip fracture 0.3%. 3. Treatment Recommendations: NOF guidelines recommend consideration for treatment in postmenopausal women and men age 50 and older presenting with the following: -A hip or vertebral (clinical or morphometric) fracture. -T-score less than or equal to -2.5 at the femoral neck or spine after appropriate evaluation to exclude secondary causes. -Low bone mass at the hip or spine and a 10-year fracture probability by FRAX of greater than or equal to 3% for hip fracture or greater than or equal to 20% for major osteoporotic fracture based on the [place] adapted WHO algorithm. 4. Other Recommendations: All treatment decisions require clinical judgment and consideration of individual patient factors, including patient preferences, comorbidities, previous drug use, risk factors not captured in the FRAX model (e.g. frailty, falls, vitamin D deficiency, increased bone turnover, interval significant decline in bone density) and possible under or overestimation of fracture risk by FRAX. Additional medical evaluation for secondary cause of low bone mineral density may be appropriate. FUTURE SCAN RECOMMENDATION: People with diagnosed cases of osteoporosis or at high risk for fracture should have regular bone mineral density tests. For patients eligible for Medicare, routine testing is allowed once every 2 years. The testing frequency can be increased to one year for patients who have rapidly progressing disease, those who are receiving or discontinuing medical therapy to restore bone mass, or have additional risk factors.
== END 2023-02-15 07:23 | disposition home or self-care (01) ==
LOC: HO.MAMMO 07:22
PROVIDERS: PCP Internal Medicine; Visit Provider Internal Medicine
DX: Z12.31 Encounter for screening mammogram for malignant neoplasm of breast (principal); Z13.820 Encounter for screening for osteoporosis; Z78.0 Asymptomatic menopausal state
CPT/HCPCS: 77063; 77067; 77080

== ENCOUNTER → 2023-02-15 08:15 | Outpatient (BNV) | payer MEDICARE, OTHER, SELFPAY | PROVIDERS: PCP Internal Medicine; Visit Provider Radiology Diagnostic Radiology | DX: Z12.31 Encounter for screening mammogram for malignant neoplasm of breast (principal) | CPT/HCPCS: 77063; 77067 ==

== ENCOUNTER 2023-03-14 08:05 | Outpatient (REF) | payer MEDICARE, OTHER, SELFPAY ==
[2023-03-14 10:28] LABS: MANUAL DIFF FLAG NO
[2023-03-14 10:36] LABS: Basophils Absolute Auto 0.1 X10*3/uL (0.0-0.2); Basophils Percent Auto 0.9 % (0-2); Eosinophils Absolute Auto 0.2 X10*3/uL (0.0-0.4); Hematocrit 43.6 % (37.0-47.0); Imm Gran Abs Auto 0.02 X10*3/uL (0.00-0.03); Imm Gran Pct Auto 0.3 % (0.0-0.4); Lymphocytes Percent Auto 27.9 % (20-40); Mean Corpuscular HGB Conc 32.1 g/dl (31.0-35.0); Mean Corpuscular Hemoglobin 29.2 pg (27.0-33.0); Mean Platelet Volume 10.2 fL (9.4-12.3); Monocytes Absolute Auto 0.5 X10*3/uL (0.1-1.2); Monocytes Percent Auto 6.7 % (2-11); Neutrophils Absolute Auto 4.3 x10*3/uL (2.0-8.3); Neutrophils Percent Auto 61.2 % (45-73); Platelet Count 255 X10*3/uL (160-400); Red Blood Count 4.79 X10*6/uL (4.20-5.50); Red Cell Distribution Width 13.1 % (11.0-16.0)
[2023-03-14 10:43] LABS: Estimated Average Glucose 123 mg/dL; Hemoglobin A1C 148.6128 umol/L; Hemoglobin A1c % 5.9 % (<6.0)
[2023-03-14 10:45] LABS: Alanine Aminotransferase 15 U/L (0-31); Albumin Level 4.2 g/dL (3.5-5.0); Alkaline Phosphatase 109 U/L (39-117); Anion Gap 9 (12-20); Aspartate Amino Transferase 19 U/L (5-31); Bilirubin Total 0.4 mg/dL (0.0-1.0); Blood Urea Nitrogen 8 mg/dL (9-16); Carbon Dioxide 31 mmol/L (22-29); Chloride 103 mmol/L (96-108); Cholesterol 155 mg/dL (<200); Estimated Glomerular Filt Rate > 60; Glucose Fasting 91 mg/dL (60-99); HDL Cholesterol 48 mg/dL (>40); LDL Cholesterol Calculated 76 mg/dL (<100); Potassium 4.2 mmol/L (3.3-5.1); Sodium 139 mmol/L (135-145); Triglycerides 155 mg/dL (<150)
== END 2023-03-14 08:06 | disposition home or self-care (01) ==
LOC: HO.10HDL 08:05
PROVIDERS: Visit Provider Internal Medicine
DX: E11.40 Type 2 diabetes mellitus with diabetic neuropathy, unspecified (principal); Z79.4 Long term (current) use of insulin; E78.00 Pure hypercholesterolemia, unspecified; I25.10 Atherosclerotic heart disease of native coronary artery without angina pectoris; I10 Essential (primary) hypertension
CPT/HCPCS: 36415; 80053; 80061; 83036; 85025; 99211

== ENCOUNTER 2023-03-14 08:19 | Outpatient (AMB) | payer MEDICARE, OTHER, SELFPAY ==
--- NOTE | 2023-03-14 08:41 | A.OFFVIS_ITS ---
Intake Intake Visit Reasons: DM-CONFIRMED Wildlife Photographer Required: No Accompanied by: Self / Same As Patient Allergies azithromycin [From ZITHROMAX] Allergy (Unknown, Verified 12/14/22 08:04) RASH bee pollen [BEE STINGS] Allergy (Unknown, Verified 12/14/22 08:04) ANAPHYLAXIS erythromycin base [ERYTHROMYCIN BASE] Allergy (Unknown, Verified 12/14/22 08:04) RASH morphine [MORPHINE] Allergy (Unknown, Verified 12/14/22 08:04) BRADYCARDIA, heart rate slows down neomycin Allergy (Unknown, Verified 12/14/22 08:04) adema bees Allergy (Unknown, Uncoded 08/30/22 08:24) anaphylaxis Taurine Allergy (Unknown, Uncoded 08/30/22 08:24) hives HPI Comprehensive Diabetes Asmnt Most Recent Diabetes Results: Hemoglobin A1c 7.0 % 10/31/19 Microalb/Creat Ratio 17.8 ug/mg cr 02/21/22 Cholesterol 162 mg/dL 02/21/22 HDL Cholesterol 50 mg/dL 02/21/22 Triglycerides 186 mg/dL 02/21/22 Creatinine 0.79 mg/dL (0.5-1.4) 08/24/22 Blood Urea Nitrogen 11 mg/dL (9-16) 08/24/22 Sodium 140 mmol/L (135-145) 08/24/22 Potassium 4.2 mmol/L (3.3-5.1) 08/24/22 Chloride 103 mmol/L (96-108) 08/24/22 Carbon Dioxide 27 mmol/L (22-29) 08/24/22 Calcium 9.9 mg/dL (8.4-10.2) 08/24/22 AST 27 U/L (5-31) 02/21/22 ALT 29 U/L (0-31) 02/21/22 Total Protein 6.6 g/dL (6.5-8.0) 02/21/22 Albumin 4.1 g/dL (3.5-5.0) 02/21/22 [facility] Medical History (Updated 07/01/21 @ 14:45 by Cordelia Sheffield PA-C) Obesity History of [place] (myocardial infarction) (~2011) Personal history of nicotine dependence Tubular adenoma of colon (~2000) Vitamin D deficiency Hyperlipidemia LDL goal <70 Arthritis Neuropathy CAD (coronary artery disease) Type 2 diabetes mellitus with diabetic neuropathy, unspecified (~2004) Surgical History History of appendectomy History of bilateral breast reduction surgery History of colonoscopy History of foot surgery History of heart artery stent History of laparoscopic cholecystectomy History of tubal ligation Family History Father Diabetes mellitus CVD (cardiovascular disease) Mother Oral cancer Brother Diabetes mellitus Household Members: Spouse Patient Tobacco Use Status: Former Tobacco user Cigarette Packs Per Day: 1 Years Smoked: 25 Assessment & Plan Assessment & Plan (1) Type 2 diabetes mellitus with diabetic neuropathy, unspecified: Onset Date: ~2004 Comment: (IDDM2, with neuropathy) Code(s): E11.40 - Type 2 diabetes mellitus with diabetic neuropathy, unspecified Qualifiers: Diabetes mellitus senior living insulin use: with terminal block assembler use Qualified Code(s): E11.40 - Type 2 diabetes mellitus with diabetic neuropathy, unspecified; Z79.4 - bed bug exterminator (current) use of insulin Plan: Patient presents for pump training for? T slim with control IQ Dexcom G6 patient's Ozempic is been increased to 1 mg weekly patient has excellent glucose control at this time. The following topics were reviewed today: - When to change set or Pod -? importance of bolusing prior to meals - using meter to verify hypoglycemia - Sensor setting (if applicable) ??? High Alert: off ??? Low Alert: 70 mg/dl Above target:? 4% At target:? 95% Below target:? 1% Average glucose the past 2 weeks 125 mg/dL Patient given the opportunity to ask questions about pump function Patient is having some postprandial hypoglycemia, which she has been bolusing after meals, patient reports that sometimes she does note she will finish the entire meal which is why she waits till after she eaten. Recommended to patient if she is not sure she is going to finish meal she can not use the extended bolus taking 60% for extent for an hour if she does not finish meal she can cancel remaining bolus. Patient declined to make changes to insulin to carb ratio Basal Setting ?12 AM to 12 AM 2.25 units / hr Bolus setting Insulin Carbohydrate Ratio (s) 12 AM? to 12 AM? 1:8 Correction Factor / Sensitivity Factor 12 AM? to 12 PM? 1:29 12 PM to? 12 AM? 1:26 Active Insulin Time:? 5 hours Target(s): 12 AM? to 12 PM? 110 mg/dL No other changes made to settings at this visit Patient will contact Diabetes Education nurse with questions or concerns or any increased in hyperglycemia or hypoglycemia ?Patient Instructions: ?patient will follow-up with data integration analyst in 5 months Coding Level of Care Code Est Pt Level 1 (27676) Diagnoses Type 2 diabetes mellitus with diabetic neuropathy, with long-term current use of insulin E11.40; Z79.4 Diabetes mellitus senior living insulin use: with terminal block assembler use
== END 2023-03-14 08:44 | disposition home or self-care (01) ==
PROVIDERS: PCP Internal Medicine; Visit Provider Registered Nurse Diabetes Educator
DX: E11.40 Type 2 diabetes mellitus with diabetic neuropathy, unspecified (principal); Z79.4 Long term (current) use of insulin

== ENCOUNTER 2023-04-04 07:55 | Outpatient (AMB) | payer MEDICARE, OTHER, SELFPAY ==
--- NOTE | 2023-04-04 07:58 | A.OFFVIS_ITS ---
Intake Vital Signs 04/04/23 08:18 Weight 219 lb 9.286 oz BP 124/64 Blood Pressure Location Rt brachial Position Sitting Pulse 83 Pulse Source Pulse Oximeter Intake Visit Reasons: DM-CONFIRMED Intake Note: Last eye exam within past year denies seeing a wagon driver Allergies azithromycin [From ZITHROMAX] Allergy (Unknown, Verified 12/14/22 08:04) RASH bee pollen [BEE STINGS] Allergy (Unknown, Verified 12/14/22 08:04) ANAPHYLAXIS erythromycin base [ERYTHROMYCIN BASE] Allergy (Unknown, Verified 12/14/22 08:04) RASH morphine [MORPHINE] Allergy (Unknown, Verified 12/14/22 08:04) BRADYCARDIA, heart rate slows down neomycin Allergy (Unknown, Verified 12/14/22 08:04) adema bees Allergy (Unknown, Uncoded 08/30/22 08:24) anaphylaxis Taurine Allergy (Unknown, Uncoded 08/30/22 08:24) hives Medication List - Last Reconciled 04/04/23 by Tesfaye Lemons, RN albuterol sulfate 90 mcg/actuation inhalation aspirin (Adult Aspirin Regimen) 81 mg PO DAILY blood-glucose sensor ([address] G6 Sensor device) As directed 1 every 10 days blood-glucose transmitter ([employer] G6 Transmitter device) As directed 1 every 3 months enjjaoyjxw-sgvwsporvawmn-cwwu 50-300-40 mg (Fioricet) 1 cap PO TID PRN cholecalciferol (vitamin D3) (Vitamin D3) 50 mcg PO DAILY diltiazem HCl 240 mg PO DAILY epinephrine (EpiPen) 0.3 mg IM Q10M PRN gabapentin 300 mg PO TID insulin aspart U-100 (Novolog U-100 Insulin aspart) 300 units (3 mL) subcut Q2D 30 days nortriptyline 75 mg PO BEDTIME omeprazole 20 mg PO DAILY prochlorperazine maleate (Compazine) 10 mg PO Q8H PRN ropinirole (Requip) 4 mg PO BEDTIME ropinirole 4 mg PO BEDTIME rosuvastatin 40 mg PO DAILY semaglutide (Ozempic) 1 mg (0.75 mL) subcut QWEEK subcutaneous insulin pump As directed Tandem Pump HPI HPI Comments History of Present Illness Details Patient is 67 yo female with DM type 2 diagnosed around 2004, for management of her diabetes. . Past medical history includes HLD, RLS. Micro and macrovascular complications include neuropathy, CAD. Diabetes medications currently prescribed: Novlog via T-slim X2 pump with control IQ t on Ozempic 1 mg , Intolerant of metformin due to gastric upset. 58% basal, 35% bolus, Today daily dose 64.62 . Omnipod insulin pump Basal Setting ?12 AM to 12 PM 2.5 units / hr 12 P-4 P 2.0 units/hr 4 P-12A 2.5 units/hr Bolus setting Insulin Carbohydrate Ratio (s) 12 AM? to 12 AM? 1:7 Correction Factor / Sensitivity Factor 12 AM? to 12 PM? 1:29 12 PM to? 12 AM? 1:29 Active Insulin Time:? 5 hours Target(s): 12 AM? to 12 PM? 110 mg/dL Continuous glucose monitoring: Average blood glucose for the last 2 weeks time in use 90 % avg glucose ,117, . Average Dexc gl 119with range of 40- 248 . 94% range with 4% hyperglycemia and 2% hypoglycemia for a ucose om pattern shows some hypoglycemia occurring overnight Symptoms reported: + numbness, tingling, cramping in lower extremities. Hypoglycemia: denies occ but doesn't feel lows overnight Exercise: Limited. Eye exam: 06/2022 - no retinopathy Laboratory Tests 11/15/20 03/24/21 03/24/21 07:59 11:11 11:11 Creatinine 0.83 Estimated GFR > 60 Hgb A1c (Clinic) 8.1 H Hemoglobin A1c % 8.2 Microalb/Creat Rat io 03/24/21 11:11 Creatinine Estimated GFR Hgb A1c (Clinic) Hemoglobin A1c % Microalb/Creat Rat io 18.8 Laboratory Tests 10/04/20 11/15/20 03/24/21 07:55 07:59 11:11 Creatinine 0.83 Estimated GFR > 60 Hgb A1c (Clinic) 8.1 H Hemoglobin A1c % Triglycerides 237 Cholesterol 167 D LDL Cholesterol, C alc 74 HDL Cholesterol 46 03/24/21 11:11 Creatinine Estimated GFR Hgb A1c (Clinic) Hemoglobin A1c % 8.2 Triglycerides Cholesterol LDL Cholesterol, C alc HDL Cholesterol Laboratory Tests 07/02/20 07/26/20 10/04/20 09:00 09:30 07:55 Creatinine 0.78 Estimated GFR > 60 Hemoglobin A1c % 7.3 Triglycerides 237 Cholesterol 167 D LDL Cholesterol, C alc 74 HDL Cholesterol 46 Microalb/Creat Rat io TNP [facility] Medical History (Updated 07/01/21 @ 14:45 by Cordelia Sheffield PA-C) Obesity History of [place] (myocardial infarction) (~2011) Personal history of nicotine dependence Tubular adenoma of colon (~2000) Vitamin D deficiency Hyperlipidemia LDL goal <70 Arthritis Neuropathy CAD (coronary artery disease) Type 2 diabetes mellitus with diabetic neuropathy, unspecified (~2004) Surgical History History of appendectomy History of bilateral breast reduction surgery History of colonoscopy History of foot surgery History of heart artery stent History of laparoscopic cholecystectomy History of tubal ligation Family History Father Diabetes mellitus CVD (cardiovascular disease) Mother Oral cancer Brother Diabetes mellitus Social History Household Members: Spouse Patient Tobacco Use Status: Former Tobacco user Cigarette Packs Per Day: 1 Years Smoked: 25 Physical Exam Vital Signs: Last Vital Signs Pulse 83 04/04/23 08:18 BP 124/64 04/04/23 08:18 Absence of Cushingoid features. Absence of acromegalic features. Neck exam reveals nl size thyroid about 15 gms. No thyroid nodules palpable. No carotid bruits present. Lungs CTA. Heart S1 S2, Reg R/R. No M/R/ G. Skin exam reveals absence of vitiligo or acanthosis nigricans. Abdominal exam reveals Soft NT/ND with NA BS. No organomegaly present. Neck Other: . Extrem Other: Visual exam of foot performed. No ulcerations or open lesions. No onchomycosis, no callouses.Pulses 2 + distally Sensation decreased to monofilament exam. Vibratory sensation sensed is decreased with 128 Hz tuning fork Results AMB Hemoglobin A1c AMB Hemoglobin A1c 5.7 % Last Edit by Tesfaye Lemnos RN on 04/04/23 09:01 Results Reviewed Results Reviewed: Laboratory Last Values Glucose (Clinic) 93 mg/dL (60-115) 04/04/23 08:26 Assessment & Plan Assessment & Plan (1) Type 2 diabetes mellitus with diabetic neuropathy, unspecified: Onset Date: ~2004 Comment: (IDDM2, with neuropathy) Code(s): E11.40 - Type 2 diabetes mellitus with diabetic neuropathy, unspecified Qualifiers: Diabetes mellitus usp insulin use: with terminal operations supervisor use Qualified Code(s): E11.40 - Type 2 diabetes mellitus with diabetic neuropathy, unspecified; Z79.4 - 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 The plan is to continue the current settings. Orders: Orders AMB Hemoglobin A1c Today E11.40 - Type 2 diabetes mellitus with diabetic neuropathy, unspecified Microalbumin, Random (w Creat) Today E11.40 - Type 2 diabetes mellitus with diabetic neuropathy, unspecified Medications: Refilled semaglutide (Ozempic) 1 mg (0.75 mL) subcut QWEEK 3 mL 4RF Coding Level of Care Code Est Pt Level 4 (81300) Diagnoses Type 2 diabetes mellitus with diabetic neuropathy, with long-term current use of insulin E11.40; Z79.4 Diabetes mellitus terminal operations supervisor insulin use: with terminal operations supervisor use
[2023-04-04 08:18] VITALS: BP 124/64; PULSE 83
[2023-04-04 08:30] LABS: Glucose, Whole Blood 93 mg/dL (60-115)
== END 2023-04-04 09:10 | disposition home or self-care (01) ==
PROVIDERS: PCP Internal Medicine; Visit Provider Internal Medicine Endocrinology, Diabetes & Metabolism
DX: E11.40 Type 2 diabetes mellitus with diabetic neuropathy, unspecified (principal); Z79.4 Long term (current) use of insulin
CPT/HCPCS: 99214

== ENCOUNTER → 2023-04-04 07:55 | Outpatient (BNVA) | payer MEDICARE, OTHER, SELFPAY | PROVIDERS: PCP Internal Medicine; Visit Provider Internal Medicine Endocrinology, Diabetes & Metabolism | DX: Z46.81 Encounter for fitting and adjustment of insulin pump (principal); E11.40 Type 2 diabetes mellitus with diabetic neuropathy, unspecified; Z79.4 Long term (current) use of insulin | CPT/HCPCS: 82947; 83036; 99212 ==

== ENCOUNTER 2023-04-19 09:07 | Outpatient (REF) | payer MEDICARE, OTHER, SELFPAY ==
[2023-04-19 11:19] LABS: Creatinine Urine 106.53 mg/dL; Microalbum/Creatinine Ratio Ur 12.2 ug/mg cr (<30)
== END 2023-04-19 09:08 | disposition home or self-care (01) ==
LOC: HO.10HDLNP 09:07
PROVIDERS: Visit Provider Internal Medicine Endocrinology, Diabetes & Metabolism
DX: E11.40 Type 2 diabetes mellitus with diabetic neuropathy, unspecified (principal)
CPT/HCPCS: 82043; 82570

== ENCOUNTER 2023-08-08 07:55 | Outpatient (AMB) | payer MEDICARE, OTHER, SELFPAY ==
--- NOTE | 2023-08-08 08:07 | MHC.OFFVIS ---
Intake Vital Signs 08/08/23 08:08 Height 5 ft 8 in Weight 211 lb 3.245 oz BMI 32.1 BP 118/62 Blood Pressure Location Lt brachial Position Sitting Pulse 86 Pulse Source Pulse Oximeter Intake Visit Reasons: DM-confirmed Intake Note: Patient presents today to follow up on D2MT. Last Diabetic Eye exam: 08/2022 Last Podiatry Visit: Doesn't have one Random Glucose: 100 mg/dl HgA1c: 5.8% Pattern Mechanic Required: No Accompanied by: Self / Same As Patient Allergies azithromycin [From ZITHROMAX] Allergy (Unknown, Verified 08/08/23 08:13) RASH bee pollen [BEE STINGS] Allergy (Unknown, Verified 08/08/23 08:13) ANAPHYLAXIS erythromycin base [ERYTHROMYCIN BASE] Allergy (Unknown, Verified 08/08/23 08:13) RASH morphine [MORPHINE] Allergy (Unknown, Verified 08/08/23 08:13) BRADYCARDIA, heart rate slows down neomycin Allergy (Unknown, Verified 08/08/23 08:13) adema bees Allergy (Unknown, Uncoded 08/08/23 08:13) anaphylaxis Taurine Allergy (Unknown, Uncoded 08/08/23 08:13) hives HPI HPI Comments History of Present Illness Details Patient is 67 yo female with DM type 2 diagnosed around 2004, for management of her diabetes. . Past medical history includes HLD, RLS. Micro and macrovascular complications include neuropathy, CAD. Diabetes medications currently prescribed: Novlog via T-slim X2 pump with control IQ t on Ozempic 1 mg , Intolerant of metformin due to gastric upset.. Has some constipation with Ozempic but wants to continue with 68% basal, 32% bolus, Today daily dose 55.2 . Omnipod insulin pump Basal Setting ?12 AM to 12 PM 2.5 units / hr 12 P-4 P 2.0 units/hr 4 P-12A 2.5 units/hr Bolus setting Insulin Carbohydrate Ratio (s) 12 AM? to 12 AM? 1:7 Correction Factor / Sensitivity Factor 12 AM? to 12 PM? 1:29 12 PM to? 12 AM? 1:29 Active Insulin Time:? 5 hours Target(s): 12 AM? to 12 PM? 110 mg/dL Continuous glucose monitoring: Average blood glucose for the last 2 weeks time in use 90 % avg glucose ,115, . 97% range with 2% hyperglycemia and 1% hypoglycemia for a ucose om pattern shows some hypoglycemia occurring overnight Symptoms reported: + numbness, tingling, cramping in lower extremities. Hypoglycemia: denies occ but doesn't feel lows overnight Exercise: Limited. Eye exam: has appt - no retinopathy Laboratory Tests 11/15/20 03/24/21 03/24/21 07:59 11:11 11:11 Creatinine 0.83 Estimated GFR > 60 Hgb A1c (Clinic) 8.1 H Hemoglobin A1c % 8.2 Microalb/Creat Rat io 03/24/21 11:11 Creatinine Estimated GFR Hgb A1c (Clinic) Hemoglobin A1c % Microalb/Creat Rat io 18.8 Laboratory Tests 10/04/20 11/15/20 03/24/21 07:55 07:59 11:11 Creatinine 0.83 Estimated GFR > 60 Hgb A1c (Clinic) 8.1 H Hemoglobin A1c % Triglycerides 237 Cholesterol 167 D LDL Cholesterol, C alc 74 HDL Cholesterol 46 03/24/21 11:11 Creatinine Estimated GFR Hgb A1c (Clinic) Hemoglobin A1c % 8.2 Triglycerides Cholesterol LDL Cholesterol, C alc HDL Cholesterol Laboratory Tests 07/02/20 07/26/20 10/04/20 09:00 09:30 07:55 Creatinine 0.78 Estimated GFR > 60 Hemoglobin A1c % 7.3 Triglycerides 237 Cholesterol 167 D LDL Cholesterol, C alc 74 HDL Cholesterol 46 Microalb/Creat Rat io TNP [facility] Medical History (Updated 07/01/21 @ 14:45 by Cordelia Sheffield PA-C) Obesity History of [place] (myocardial infarction) (~2011) Personal history of nicotine dependence Tubular adenoma of colon (~2000) Vitamin D deficiency Hyperlipidemia LDL goal <70 Arthritis Neuropathy CAD (coronary artery disease) Type 2 diabetes mellitus with diabetic neuropathy, unspecified (~2004) Surgical History History of bilateral breast reduction surgery History of tubal ligation History of foot surgery History of laparoscopic cholecystectomy History of heart artery stent History of colonoscopy History of appendectomy Family History Father Diabetes mellitus CVD (cardiovascular disease) Mother Oral cancer Brother Diabetes mellitus Social History Household Members: Spouse Patient Tobacco Use Status: Former Tobacco user Cigarette Packs Per Day: 1 Years Smoked: 25 Physical Exam Vital Signs: Last Vital Signs Pulse 86 08/08/23 08:08 BP 118/62 08/08/23 08:08 BMI result Body Mass Index 32.1 Absence of Cushingoid features. Absence of acromegalic features. Neck exam reveals nl size thyroid about 15 gms. No thyroid nodules palpable. No carotid bruits present. Lungs CTA. Heart S1 S2, Reg R/R. No M/R/ G. Skin exam reveals absence of vitiligo or acanthosis nigricans. Abdominal exam reveals Soft NT/ND with NA BS. No organomegaly present. Neck Other: . Extrem Other: Visual exam of foot performed. No ulcerations or open lesions. No onchomycosis, no callouses.Pulses 2 + distally Sensation decreased to monofilament exam. Vibratory sensation sensed is decreased with 128 Hz tuning fork Results AMB Hemoglobin A1c AMB Hemoglobin A1c 5.8 % Last Edit by BELEN Monahan on 08/08/23 08:29 Results Reviewed Results Reviewed: Laboratory Last Values Glucose (Clinic) 100 mg/dL (60-115) 08/08/23 08:15 Assessment & Plan Assessment & Plan (1) Type 2 diabetes mellitus with diabetic neuropathy, unspecified: Onset Date: ~2004 Comment: (IDDM2, with neuropathy) Code(s): E11.40 - Type 2 diabetes mellitus with diabetic neuropathy, unspecified Qualifiers: Diabetes mellitus terminal operations supervisor insulin use: with terminal operations supervisor use Qualified Code(s): E11.40 - Type 2 diabetes mellitus with diabetic neuropathy, unspecified; Z79.4 - 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 The plan is to continue the current settings. Orders: Orders AMB Hemoglobin A1c Today E11.40 - Type 2 diabetes mellitus with diabetic neuropathy, unspecified, Z13.9 - Encounter for screening, unspecified, Z79.4 - intermodal owner operator truck driver (current) use of insulin Coding Level of Care Code Est Pt Level 4 (65001) Diagnoses Type 2 diabetes mellitus with diabetic neuropathy, with long-term current use of insulin E11.40; Z79.4 Diabetes mellitus terminal operations supervisor insulin use: with correction use
[2023-08-08 08:08] VITALS: BP 118/62; PULSE 86; BMI 32.1
[2023-08-08 08:19] LABS: Glucose, Whole Blood 100 mg/dL (60-115)
== END 2023-08-08 08:30 | disposition home or self-care (01) ==
PROVIDERS: PCP Internal Medicine; Visit Provider Internal Medicine Endocrinology, Diabetes & Metabolism
DX: Z13.9 Encounter for screening, unspecified (principal); E11.40 Type 2 diabetes mellitus with diabetic neuropathy, unspecified; Z79.4 Long term (current) use of insulin
CPT/HCPCS: 99214

== ENCOUNTER → 2023-08-08 07:55 | Outpatient (BNVA) | payer MEDICARE, OTHER, SELFPAY | PROVIDERS: PCP Internal Medicine; Visit Provider Internal Medicine Endocrinology, Diabetes & Metabolism | DX: E11.40 Type 2 diabetes mellitus with diabetic neuropathy, unspecified (principal); Z79.4 Long term (current) use of insulin | CPT/HCPCS: 82947; 83036; 99212 ==

== ENCOUNTER 2023-08-14 09:05 | Outpatient (REF) | payer MEDICARE, OTHER, SELFPAY ==
--- NOTE | ~2023-08-14 | CT_ITS ---
EXAMINATION: CT CHEST SCREENING CLINICAL INFORMATION: Nicotine dependence, cigarettes, uncomplicated. The patient has a 20 pack-year history of smoking, having quit 10 years ago. COMPARISON: CT chest 08/14/2022. X-ray chest of 05/30/2007. TECHNIQUE: Multidetector volumetric CT imaging of the chest is performed on a Siemens SOMATOM Perspective scanner without contrast using low dose technique. Additional 2D coronal and sagittal reformatted images and axial 3D maximum intensity projection (MIP) images are generated on the CT workstation. This CT examination was performed using dose optimization techniques as appropriate, variously including the following: *Automated exposure control *Adjustment of mA and/or kV according to patient size (this includes techniques or standardized protocols for targeted exams where dose is matched to indication/reason for exam; i.e. extremities or head) *Use of iterative reconstruction technique DLP: 113 mGy-cm FINDINGS: LUNGS: There is moderate emphysema present along with mild bronchial thickening. PULMONARY NODULES: Multiple small solid as well as ground-glass pulmonary nodules are again seen, the largest pleural-based at the right lung base medially measuring 5 mm (5:399 compare prior 12:139). Bah images of all have been saved. No new, increasing sized or suspicious lung masses seen. MEDIASTINUM: Calcified subcentimeter left thyroid nodule is again noted. No follow up is needed. CORONARY ARTERY CALCIFICATION: Moderate. PLEURA: There is no pleural effusion. No pleural mass or thickening. AXILLA: No lymphadenopathy. UPPER ABDOMEN: Unremarkable. OSSEOUS STRUCTURES: Unremarkable. CT/CT lung screening IMPRESSION: Multiple small pulmonary micronodules, unchanged. No findings suspicious for malignancy. ASSESSMENT: Lung-RADS category 2: Benign. RECOMMENDATION: Routine annual low-dose CT screening in 12 months.
== END 2023-08-14 09:06 | disposition home or self-care (01) ==
LOC: HO.CT 09:05
PROVIDERS: PCP Internal Medicine; Visit Provider Nurse Practitioner Family
DX: Z12.2 Encounter for screening for malignant neoplasm of respiratory organs (principal); F17.210 Nicotine dependence, cigarettes, uncomplicated
CPT/HCPCS: 71271

== ENCOUNTER 2023-10-03 07:53 | Outpatient (REF) | payer MEDICARE, OTHER, SELFPAY ==
[2023-10-03 10:40] LABS: MANUAL DIFF FLAG NO
[2023-10-03 10:56] LABS: Basophils Absolute Auto 0.1 X10*3/uL (0.0-0.2); Basophils Percent Auto 0.9 % (0-2); Eosinophils Absolute Auto 0.2 X10*3/uL (0.0-0.4); Eosinophils Percent Auto 2.4 % (0-4); Hematocrit 42.8 % (37.0-47.0); Hemoglobin 13.8 g/dl (12.0-16.0); Imm Gran Abs Auto 0.01 X10*3/uL (0.00-0.03); Imm Gran Pct Auto 0.1 % (0.0-0.4); Lymphocytes Absolute Auto 1.9 X10*3/uL (1.2-4.9); Lymphocytes Percent Auto 25.6 % (20-40); Mean Corpuscular HGB Conc 32.2 g/dl (31.0-35.0); Mean Corpuscular Hemoglobin 28.6 pg (27.0-33.0); Mean Corpuscular Volume 88.6 fL (80.0-98.0); Mean Platelet Volume 10.3 fL (9.4-12.3); Monocytes Absolute Auto 0.5 X10*3/uL (0.1-1.2); Neutrophils Absolute Auto 4.9 x10*3/uL (2.0-8.3); Platelet Count 256 X10*3/uL (160-400); Red Blood Count 4.83 X10*6/uL (4.20-5.50); White Blood Count 7.5 X10*3/uL (4.8-10.8)
[2023-10-03 10:59] LABS: Alanine Aminotransferase 14 U/L (0-31); Albumin Level 4.1 g/dL (3.5-5.0); Alkaline Phosphatase 102 U/L (39-117); Anion Gap 12 (12-20); Aspartate Amino Transferase 15 U/L (5-31); Bilirubin Total 0.4 mg/dL (0.0-1.0); Blood Urea Nitrogen 9 mg/dL (9-16); Calcium 9.9 mg/dL (8.4-10.2); Carbon Dioxide 29 mmol/L (22-29); Chloride 104 mmol/L (96-108); Estimated Glomerular Filt Rate > 60; Glucose Random 97 mg/dL (60-115); Potassium 3.9 mmol/L (3.3-5.1); Sodium 141 mmol/L (135-145); Total Protein 6.8 g/dL (6.5-8.0)
== END 2023-10-03 07:54 | disposition home or self-care (01) ==
LOC: HO.10HDL 07:53
PROVIDERS: Visit Provider Internal Medicine
DX: Z13.89 Encounter for screening for other disorder (principal)
CPT/HCPCS: 36415; 80053; 85025

== ENCOUNTER 2023-10-04 09:35 | Outpatient (REF) | payer MEDICARE, OTHER, SELFPAY ==
[2023-10-04 11:03] LABS: Appearance Urine Clear; Color Urine Yellow; Glucose Urine UA Negative (Negative); Leukocyte Esterase Urine Small (1+) (Negative); Nitrite Urine Negative (Negative); PH 6.5 (5.0-9.0); UMIC TRIGGER UA YES; Urine Blood Negative (Negative); Urine Ketones Negative (Negative); Urine Protein Negative (Neg-Trace)
[2023-10-04 11:29] LABS: Creatinine Urine 45.39 mg/dL; Microalbum/Creatinine Ratio Ur 24.2 ug/mg cr (<30)
[2023-10-04 11:31] LABS: Bacteria Urine None Seen (None Seen); Hyaline Casts Urine 0-2 /LPF (0-2); RBC Urine 0-2 /HPF (0-2); Squamous Epithelial Cell Urine 0-2 /HPF (0-2); WBC Urine 0-5 /HPF (0-5)
== END 2023-10-04 09:36 | disposition home or self-care (01) ==
LOC: HO.10HDLNP 09:35
PROVIDERS: Visit Provider Internal Medicine
DX: E11.9 Type 2 diabetes mellitus without complications (principal); I10 Essential (primary) hypertension; E78.00 Pure hypercholesterolemia, unspecified; K21.9 Gastro-esophageal reflux disease without esophagitis
CPT/HCPCS: 81001; 81003; 82043; 82570

== ENCOUNTER 2023-11-07 08:27 | Outpatient (AMB) | payer MEDICARE, OTHER, SELFPAY ==
--- NOTE | 2023-11-07 08:30 | A.OFFVIS_ITS ---
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 Operator Most recent HbA1c: 5.7%, 11/07/2023 Random Glucose- 106mg/dL, Today Contaminated Land Consultant Required: No Accompanied by: Self / Same As Patient Allergies azithromycin [From ZITHROMAX] Allergy (Unknown, Verified 11/07/23 08:31) RASH bee pollen [BEE STINGS] Allergy (Unknown, Verified 11/07/23 08:31) ANAPHYLAXIS erythromycin base [ERYTHROMYCIN BASE] Allergy (Unknown, Verified 11/07/23 08:31) RASH morphine [MORPHINE] Allergy (Unknown, Verified 11/07/23 08:31) BRADYCARDIA, heart rate slows down neomycin Allergy (Unknown, Verified 11/07/23 08:31) adema bees Allergy (Unknown, Uncoded 11/07/23 08:31) anaphylaxis Taurine Allergy (Unknown, Uncoded 11/07/23 08:31) hives HPI Comments Details: Patient is 68 yo female with DM type 2 diagnosed around 2004, for management of her diabetes. 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 She was last seen by Dr. Sales 08/11/2023. Past medical history includes HLD, RLS. Micro and macrovascular complications include neuropathy, CAD. Diabetes medications currently prescribed: Novlog via T-slim X2 pump with control IQ She is on Ozempic 1 mg, Intolerant of metformin due to gastric upset.. Has constipation on Ozempic 1.0 mg weekly. She also had constipation on the 0.5 mg dosing. It has been a week since she moved her bowels. She has positive bowel sounds and her abdomen is nontender and soft. She has tried prune juice and Metamucil. Having some mild lows after meal correction. This occurs mainly when she is over 140 pre meal. She does bolus at the start of the meal. Omnipod insulin pump Basal Setting 12 AM 2.5 units / hr 4 pm 2.5 units/ hr Bolus setting Insulin Carbohydrate Ratio (s) 12 AM? to 12 AM? 1:7 Correction Factor / Sensitivity Factor 12 AM? to 12 PM? 1:29 12 PM to? 12 AM? 1:29 Active Insulin Time:? 5 hours Target(s): 12 AM? to 12 PM? 110 mg/dL Dexcom average glucose: [117 ] Glucose Managment indicator [unable to calculate] % TIme in range: [ 0] % very high (above 250) 2.6 % high ?(181-250) [ 96] % in range ?(70-180] 1% low (69-55) [0.03 ] % ?very low (below 54) [ 26] Standard Deviation 23 % Coefficent of variation [ 90] % TIme CGM Active Symptoms reported: + numbness, tingling, cramping in lower extremities. Has callous formation and has pod appointment Hypoglycemia: after meals but doesn't feel lows overnight Exercise: Limited. Eye exam: had 1 month ago appt - no retinopathy PFSH Medical History Obesity History of OR (myocardial infarction) (~2011) Personal history of nicotine dependence Tubular adenoma of colon (~2000) Vitamin D deficiency Hyperlipidemia LDL goal <70 Arthritis Neuropathy CAD (coronary artery disease) Type 2 diabetes mellitus with diabetic neuropathy, unspecified (~2004) Surgical History History of bilateral breast reduction surgery History of tubal ligation History of foot surgery History of laparoscopic cholecystectomy History of heart artery stent History of colonoscopy History of appendectomy Family History Father Diabetes mellitus CVD (cardiovascular disease) Mother Oral cancer Brother Diabetes mellitus Social History Household Members: Spouse Patient Tobacco Use Status: Former Tobacco user Cigarette Packs Per Day: 1 Years Smoked: 25 Physical Exam Vital Signs: Last Vital Signs Pulse 74 11/07/23 08:32 BP 128/68 11/07/23 08:32 BMI result Body Mass Index 30.8 Chest Chest palpation & inspection: normal inspection of the chest Resp Effort & Inspection: normal respiratory effort Cardio Jugular venous distension: no JVD Rate: regular rate Rhythm: regular rhythm Heart sounds: S1 normal heart sound present and S2 normal heart sound present GI Other: Normal bowel sounds in all 4 quadrants, nontender, not distended, no HSM Extrem Other: Visual exam of foot performed. No ulcerations or open lesions. No onchomycosis, + callouses right great toe, bilat 5th toe, Sensation to monofilament exam absent Vibratory sensation is absent. Results AMB Hemoglobin A1c AMB Hemoglobin A1c 5.7 % Last Edit by BELEN Sharpe on 11/07/23 08:51 Results Reviewed Results Reviewed: Laboratory Last Values Glucose (Clinic) 106 mg/dL (60-115) 11/07/23 08:38 Hgb A1c (Clinic) 5.7 % (4.0-6.0) 11/07/23 08:42 Laboratory Tests 03/14/23 04/04/23 08/08/23 08:15 08:53 08:20 Potassium Creatinine Estimated GFR Hgb A1c (Clinic) 5.7 5.8 Calcium Total Bilirubin AST ALT Alkaline Phosphatase Albumin 4.2 Triglycerides 155 H Cholesterol 155 LDL Cholesterol, Calc 76 HDL Cholesterol 48 10/03/23 08:00 Potassium 3.9 Creatinine 0.68 Estimated GFR > 60 Hgb A1c (Clinic) Calcium 9.9 Total Bilirubin 0.4 AST 15 ALT 14 Alkaline Phosphatase 102 Albumin Triglycerides Cholesterol LDL Cholesterol, Calc HDL Cholesterol Assessment & Plan Assessment & Plan (1) Type 2 diabetes mellitus with diabetic neuropathy, unspecified: Onset Date: ~2004 Comment: (IDDM2, with neuropathy) Code(s): E11.40 - Type 2 diabetes mellitus with diabetic neuropathy, unspecified Category: Medical Qualifiers: Diabetes mellitus 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 She is not in control IQ at all times and she was asked to try to stay there all day. Today we made minor changes below to her settings. She is having significant constipation on Ozempic we will switch her over to Mounjaro 0.25 mg weekly. She last took Ozempic on Sunday. She was asked to wait until the following week to restart on the Mounjaro. She is currently taking a fiber supplement and she was asked to increase her water intake. She will take a Fleet's enema today if needed. Should she not move her bowels and she does not have positive bowel sounds or her abdomen becomes tender and firm she has to go to the ER. If she is tolerating the Mounjaro without constipation and needs an increase to 0.5 mg weekly she will contact me in 3 weeks. Backup pump plan 36 units of Lantus and Humalog according to her usual dosing. She will contact the office if she continues to have lows below 80 after meals and settings can be changed. Omnipod insulin pump Basal Setting 12 AM 2.4 units / hr 4 pm 2.4 units/ hr Bolus setting Insulin Carbohydrate Ratio (s) 12 AM? to 12 AM? 1:7 Correction Factor / Sensitivity Factor 12 AM? to 12 PM? 1:32 12 PM to? 12 AM? 1:32 Active Insulin Time:? 5 hours Target(s): 12 AM? to 12 PM? 110 mg/dL order alex next visit Patient teaching today: The patient was counseled to always carry a source of sugar and on the rule of 15's: Take 3 glucose tablets and repeat again in 15 minutes if blood sugar is not in normal range. Continue to repeat every 15 minutes until blood sugar is normal. Symptoms of DKA were reviewed: early: frequent urination, dry mouth, ketones in the urine, severe symptoms: abdominal pain, nausea, vomiting and weakness. It is important to hydrate with sugar free liquids every 30 minutes and bring the sugars down to normal levels. Backup pump plan for failure High glycemic protocol reviewed in ketone test strips she will purchase. (2) Osteopenia: Code(s): M85.80 - Other specified disorders of bone density and structure, unspecified site Category: Medical Plan: Normal bone density of the hip. L1 and L2 osteopenia -1.9. The rest of the lumbar spine was not done secondary to osteoarthritis. She is consistently taking 50 mcg of vitamin-D [id number]. She was given a sheet of calcium rich foods and advised to take 1200 mg of calcium preferably in diet this she does not eat cheese or drink milk she will add 1 500 mg supplement daily and get the rest through dietary measures. (3) Pre-ulcerative corn or callous: Code(s): L84 - Corns and callosities Category: Medical Plan: She has an appointment set up with her helicopter technician. She has hammertoes and multiple calluses. She was counseled that she should see the helicopter technician every 2-3 months. Foot care reviewed Orders: Orders AMB Hemoglobin A1c Today E11.9 - Type 2 diabetes mellitus without complications Vitamin D 25-OH Total Today E55.9 - Vitamin D deficiency, unspecified Coding Level of Care Code Tele Est Pt Level 4 (87800) Complex EM visit Add On G2211 Diagnoses Type 2 diabetes mellitus with diabetic neuropathy, with long-term current use of insulin E11.40; Z79.4 Diabetes mellitus [facility] insulin use: with [facility] use Osteopenia M85.80 Pre-ulcerative corn or callous L84 Time Spent (min) 30 Comment This is a change in size or characteristics of the nodules, patient up with a bone with in
[2023-11-07 08:32] VITALS: BP 128/68; PULSE 74; BMI 30.8
[2023-11-07 08:42] LABS: Glucose, Whole Blood 106 mg/dL (60-115)
== END 2023-11-07 09:18 | disposition home or self-care (01) ==
PROVIDERS: PCP Internal Medicine; Visit Provider Nurse Practitioner Adult Health
DX: E11.40 Type 2 diabetes mellitus with diabetic neuropathy, unspecified (principal); Z79.4 Long term (current) use of insulin; M85.80 Other specified disorders of bone density and structure, unspecified site; L84 Corns and callosities
CPT/HCPCS: 99214; G2211

== ENCOUNTER → 2023-11-07 08:27 | Outpatient (BNVA) | payer MEDICARE, OTHER, SELFPAY | PROVIDERS: PCP Internal Medicine; Visit Provider Nurse Practitioner Adult Health | DX: E11.40 Type 2 diabetes mellitus with diabetic neuropathy, unspecified (principal); E55.9 Vitamin D deficiency, unspecified; Z46.81 Encounter for fitting and adjustment of insulin pump; Z79.4 Long term (current) use of insulin | CPT/HCPCS: 82947; 83036; 99212 ==

== ENCOUNTER 2023-11-07 09:21 | Outpatient (REF) | payer MEDICARE, OTHER, SELFPAY ==
[2023-11-07 12:18] LABS: Vitamin D 25-OH Total 54.1 ng/mL (>30)
== END 2023-11-07 09:22 | disposition home or self-care (01) ==
LOC: HO.10HDL 09:21
PROVIDERS: Visit Provider Nurse Practitioner Adult Health
DX: E55.9 Vitamin D deficiency, unspecified (principal)
CPT/HCPCS: 36415; 82306

== ENCOUNTER 2024-02-07 07:58 | Outpatient (AMB) | payer MEDICARE, OTHER, SELFPAY ==
--- NOTE | 2024-02-07 07:07 | A.OFFVIS_ITS ---
Vital Signs 02/07/24 08:04 Height 5 ft 8 in Weight 216 lb 0.848 oz BMI 32.8 BP 124/78 Blood Pressure Location Rt brachial Position Sitting Pulse 95 Pulse Source Pulse Oximeter Intake Visit Reasons: DM/LVM Intake Note: Patient presents today for a follow-up for Type 2 Diabetes Mellitus with insulin pump: Last Diabetic Eye exam: 09/2023 Last Podiatry Exam: Does not see a Morgue Technician Most recent HbA1c: 5.9%, 02/07/2024 Random Glucose- 94mg/dL, Today Chairman Ceo Required: No Accompanied by: Self / Same As Patient Allergies azithromycin [From ZITHROMAX] Allergy (Unknown, Verified 11/07/23 08:31) RASH bee pollen [BEE STINGS] Allergy (Unknown, Verified 11/07/23 08:31) ANAPHYLAXIS erythromycin base [ERYTHROMYCIN BASE] Allergy (Unknown, Verified 11/07/23 08:31) RASH morphine [MORPHINE] Allergy (Unknown, Verified 11/07/23 08:31) BRADYCARDIA, heart rate slows down neomycin Allergy (Unknown, Verified 11/07/23 08:31) adema bees Allergy (Unknown, Uncoded 11/07/23 08:31) anaphylaxis Taurine Allergy (Unknown, Uncoded 11/07/23 08:31) hives HPI Comments Details: Patient is 68 yo female with DM type 2 diagnosed around 2004, for management of her diabetes. 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 She was last seen by myself 11/07/23 at which time Ozempic was changed to Mounjaro due to constipation on Ozempic. She did not do well on the Mounjaro ,constipation was no better. She reports she never feels bloated or hard abdomen and has attempted to increase her fiber but drinks very little water. She is on an Omnipod insulin pump. HGB A1c 02/07/2024 %, 11/07/2023 5.7% Prior medications: Metformin intolerant due to gastric upset, ,mounjaro: wasn't effective at low dose Diabetes medications Novlog via T-slim X2 pump with control IQ Mounjaro 2.5 mg weekly Backup pump failure plan 36 units of Degludec and Humalog according to her usual dosing. Dexcom average glucose: [ 131] 14 day continuous glucose monitor report reviewed Glucose Managment indicator 6.4 % Days with CGM data 87.4% % TIme in ranges: 0 % very high (above 250) Lines % high ?(181-250) 89 % in range ?(70-180] 1 % low (69-55) 1 % ?very low (below 54) Interpretation [overall very well controlled when her sugars are higher and she corrects she does have some hypoglycemia ] Total daily dose of insulin 59.3 units 65% basal 38.8 35% bolus 20.6 Carb g entered 144 In control IQ 81% of the time manual team Omnipod insulin pump Basal Setting 12 AM 2.4 units / hr 4 pm 2.4 units/ hr Bolus setting Insulin Carbohydrate Ratio (s) 12 AM? to 12 AM? 1:7 Correction Factor / Sensitivity Factor 12 AM? to 12 PM? 1:38 decreased from 34 12 PM to? 12 AM? 1:38 decreased from 30/4 Active Insulin Time:? 5 hours Target(s): 12 AM? to 12 PM? 110 mg/dL No retinopathy Last eye exam:09/2023 Positive neuropathy: Complaints of numbness, tingling but no cramping in the lower extremities, sees Podiatry regularly and has callus formation on her feet on gabapentin gets pain in right great toe No nephropathy. EGFR > 60, microalbumin 11.0 Has CAD on statin most recent: 02/2023 LDL 76 Exercise: Limited. [facility] screen Fibrosis-4 (Fib-4) Index for liver fibrosis (calculated on lab work done: 09/2023 ) 1.08 points Advanced fibrosis excluded Approximate Fibrosis stage Altaf 0-1 *Use with caution in patients <35 or >65 years old, as the score has been shown to be less reliable in these patients. Prior Imaging [abdominal ultrasound 2021:LIVER: Liver size is enlarged measuring 20.3 cm in length. The liver contour is normal. There is increased liver echogenicity with areas of focal fatty sparing. No focal hepatic lesion. There is no intrahepatic biliary duct dilatation seen.] Action Plan: rescreen two years from date of screening labs[09/2025 ] [facility] Medical History Obesity History of ID (myocardial infarction) (~2011) Personal history of nicotine dependence Tubular adenoma of colon (~2000) Vitamin D deficiency Hyperlipidemia LDL goal <70 Arthritis Neuropathy CAD (coronary artery disease) Type 2 diabetes mellitus with diabetic neuropathy, unspecified (~2004) Surgical History History of bilateral breast reduction surgery History of tubal ligation History of foot surgery History of laparoscopic cholecystectomy History of heart artery stent History of colonoscopy History of appendectomy Family History Father Diabetes mellitus CVD (cardiovascular disease) Mother Oral cancer Brother Diabetes mellitus Social History Household Members: Spouse Patient Tobacco Use Status: Former Tobacco user Cigarette Packs Per Day: 1 Years Smoked: 25 Physical Exam Vital Signs: BMI result Body Mass Index 32.8 Const Other: Absence of Cushingoid features. Absence of acromegalic features. Neck exam reveals nl size thyroid about 15 gms. No thyroid nodules palpable. No carotid bruits present. Lungs CTA. Heart S1 S2, Reg R/R. No M/R G. Skin exam reveals absence of vitiligo or acanthosis nigricans. No edema Office Procedures Glucose Monitoring Details Details: see [facility] [id number] - Glucose monitoring, continuous-physician I&R Procedure code (CPT) selection complete Results AMB Hemoglobin A1c AMB Hemoglobin A1c 5.9 % Last Edit by BELEN Sharpe on 02/07/24 08:25 Results Reviewed Results Reviewed: Laboratory Last Values Glucose (Clinic) 94 mg/dL (60-115) 02/07/24 08:09 Hgb A1c (Clinic) 5.9 % (4.0-6.0) 02/07/24 08:24 Assessment & Plan Assessment & Plan (1) Type 2 diabetes mellitus with diabetic neuropathy, unspecified: Onset Date: ~2004 Comment: (IDDM2, with neuropathy) Code(s): E11.40 - Type 2 diabetes mellitus with diabetic neuropathy, unspecified Category: Medical Qualifiers: 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 She continues to have some lows 2% of the time which mainly occur after correction. Sensitivity factor adjusted to give her less meals with corrections. She has restarted Ozempic and stopped Mounjaro She was advised to increase her water consumption to offset any constipation triggered by Ozempic. Continue to add fiber and green leafy vegetables to her diet. If she develops any issues with the abdominal pain, hard abdomen indicating bowel obstruction that she should stop the medication and seek emergent medical assistance. Orders: Orders AMB Hemoglobin A1c Today E11.40 - Type 2 diabetes mellitus with diabetic neuropathy, unspecified, Z79.4 - senior care (current) use of insulin AMB Glucose Monitoring Today E11.40 - Type 2 diabetes mellitus with diabetic neuropathy, unspecified, Z79.4 - watermaster (current) use of insulin Medications: New semaglutide (Ozempic) 1 mg (0.75 mL) subcut QWEEK 28 days 3 mL 11RF gabapentin 900 mg at bedtime 300 mg in the am 300 mg PO BID 130 days 260 caps 6RF Patient Instructions: Symptoms of DKA were reviewed: early: frequent urination, dry mouth, fatigue, feeling ill, severe symptoms: ketones in the urine, abdominal pain, nausea, vomiting and weakness. It is important to hydrate with sugar free liquids every 30 minutes and bring the sugars down to normal levels. The patient was counseled to wear closed toe shoes, never walk barefooted and to inspect the feet daily. For any signs of infection or open wound patient should notify PCP or go to urgent care. e Safety information: Importance of a backup plan, for manual injections, proper prescriptions and emergency supplies ketone strips, and rules for testing for ketones Coding Level of Care Code Est Pt Level 4 (15243) Diagnoses Type 2 diabetes mellitus with diabetic neuropathy, with long-term current use of insulin E11.40; Z79.4 Diabetes mellitus alf insulin use: with alf use CPT Codes Details - CPT: 99218 - Glucose monitoring, continuous-physician I&R ([id number]) Time Spent (min) 35 Comment Reviewing labs/provider notes, glucose sensor/pump reports, face to face, chart doc
[2024-02-07 08:04] VITALS: BP 124/78; PULSE 95; BMI 32.8
[2024-02-07 08:13] LABS: Glucose, Whole Blood 94 mg/dL (60-115)
== END 2024-02-07 08:57 | disposition home or self-care (01) ==
PROVIDERS: PCP Internal Medicine; Visit Provider Nurse Practitioner Adult Health
DX: E11.40 Type 2 diabetes mellitus with diabetic neuropathy, unspecified (principal); Z79.4 Long term (current) use of insulin
CPT/HCPCS: 95251; 99214

== ENCOUNTER → 2024-02-07 07:58 | Outpatient (BNVA) | payer MEDICARE, OTHER, SELFPAY | PROVIDERS: PCP Internal Medicine; Visit Provider Nurse Practitioner Adult Health | DX: E11.40 Type 2 diabetes mellitus with diabetic neuropathy, unspecified (principal); Z96.41 Presence of insulin pump (external) (internal); Z79.4 Long term (current) use of insulin; Z79.899 Other long term (current) drug therapy | CPT/HCPCS: 82947; 83036; 99212 ==

== ENCOUNTER 2024-02-25 15:04 | Outpatient (REF) | payer MEDICARE, OTHER, SELFPAY ==
--- NOTE | ~2024-02-25 | MM_ITS ---
EXAMINATION: MM SCREENING DIGITAL BREAST TOMOSYNTHESIS, BILATERAL CLINICAL INFORMATION: Screening. Asymptomatic. COMPARISON: Mammography: Comparison is made with available priors TECHNIQUE: Digital breast mammography with tomosynthesis is performed in both the craniocaudal and mediolateral oblique views along with computer-aided detection (CAD). FINDINGS: There are scattered areas of fibroglandular density (ACR BI-RADS breast composition Category b). There are no significant masses, abnormal calcifications, or other abnormalities. MM/MM tomosynthesis screening BI IMPRESSION: No mammographic evidence of malignancy. ASSESSMENT: BI-RADS BI-RADS 1 - Negative RECOMMENDATION: Routine annual mammography screening. 1 year F/U This examination should not preclude the clinical evaluation of a suspicious palpable abnormality. This patient's information was entered into a reminder system with a target due date for their next mammogram. Electronically signed by: Eva Morales DO 03/05/2024 12:19 PM MANJINDER
== END 2024-02-25 15:05 | disposition home or self-care (01) ==
LOC: HO.MAMMO 15:04
PROVIDERS: Visit Provider Internal Medicine
DX: Z12.31 Encounter for screening mammogram for malignant neoplasm of breast (principal)
CPT/HCPCS: 77063; 77067

== ENCOUNTER → 2024-02-25 15:15 | Outpatient (BNV) | payer MEDICARE, OTHER, SELFPAY | PROVIDERS: Visit Provider Internal Medicine | DX: Z12.31 Encounter for screening mammogram for malignant neoplasm of breast (principal) | CPT/HCPCS: 77063; 77067 ==

== ENCOUNTER 2024-05-13 07:05 | Outpatient (AMB) | payer MEDICARE, OTHER, SELFPAY ==
--- NOTE | 2024-05-13 07:10 | A.OFFVIS_ITS ---
Vital Signs 05/13/24 07:32 BP 104/60 Blood Pressure Location Lt brachial Position Sitting Pulse 81 Pulse Source Pulse Oximeter Intake Visit Reasons: DM Intake Note: Patient present today for Type 2 Diabetes Mellitus. 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 Accompanied by: Self / Same As Patient Allergies azithromycin [From ZITHROMAX] Allergy (Unknown, Verified 05/13/24 07:34) RASH bee pollen [BEE STINGS] Allergy (Unknown, Verified 05/13/24 07:34) ANAPHYLAXIS erythromycin base [ERYTHROMYCIN BASE] Allergy (Unknown, Verified 05/13/24 07:34) RASH morphine [MORPHINE] Allergy (Unknown, Verified 05/13/24 07:34) BRADYCARDIA, heart rate slows down neomycin Allergy (Unknown, Verified 05/13/24 07:34) adema bees Allergy (Unknown, Uncoded 05/13/24 07:34) anaphylaxis Taurine Allergy (Unknown, Uncoded 05/13/24 07:34) hives Medication List - Last Reconciled 05/13/24 by Mariana Velasquez NP albuterol sulfate 90 mcg/actuation inhalation aspirin (Adult Aspirin Regimen) 81 mg PO DAILY blood-glucose sensor (Dexcom G6 Sensor device) As directed 1 every 10 days blood-glucose transmitter (Dexcom G6 Transmitter device) As directed 1 every 3 months wckhqvwzsg-mcthbkkjhkmuz-jtyv 50-300-40 mg (Fioricet) 1 cap PO TID PRN cholecalciferol (vitamin D3) (Vitamin D3) 50 mcg PO DAILY diltiazem HCl CD 360 mg PO DAILY epinephrine (EpiPen) 0.3 mg IM Q10M PRN gabapentin 300 mg PO BID insulin aspart (niacinamide) 100 unit/mL (Fiasp U-100 Insulin) up to 300 units via insulin pump every 2 days subcutaneously; insulin degludec (Tresiba FlexTouch U-200 insulin) 36 units (0.18 mL) subcut DAILY PRN 30 days MDD 36 units nortriptyline 75 mg PO BEDTIME omeprazole 20 mg PO DAILY prochlorperazine maleate (Compazine) 10 mg PO Q8H PRN ropinirole (Requip) 4 mg PO BEDTIME ropinirole 4 mg PO BEDTIME rosuvastatin 40 mg PO DAILY semaglutide (Ozempic) 0.5 mg subcut QWEEK subcutaneous insulin pump As directed Tandem Pump HPI Comments Details: Patient is 68 yo female with DM type 2 diagnosed around 2004, for management of her diabetes. 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 She was last seen by myself 02/07/24 at which time her correction factor was changed to prevent postprandial lows. The correction has helped prevent lows. Hemoglobin A1c 05/13/2024 6.2% 02/07/2024 5.9 %. She was changed from Mounjaro to low-dose Ozempic which he is taking it 0.5 mg. She reports she has constipation moves her bowels several times per week and it was not hard when she does have a bowel movement. She never feels bloated or hard abdomen and has attempted to increase her fiber. She is now up to several glasses of water daily.. She is on an Omnipod insulin pump. Prior medications: Metformin intolerant due to gastric upset, ,mounjaro: wasn't effective at low dose nd had constipation Diabetes medications Novlog via T-slim X2 pump with control IQ Mounjaro 2.5 mg weekly Backup pump failure plan 36 units of Degludec and Humalog according to her usual dosing. stopped extra dose of gabapentin takes 900 at night some reports of pain Total daily dosing 62.65 Basal 73% 48.5 bolus 27% 16.8 Dexcom average glucose: 130 14 day continuous glucose monitor report reviewed Glucose Managment indicator 6.5 % Days with CGM data 93 % TIme in ranges: 0 % very high (above 250) 6.4 % high ?(181-250) 93 % in range ?(70-180] 0.6 % low (69-55) 0 % ?very low (below 54) Interpretation overall very well controlled without significant hypo's Omnipod insulin pump Basal Setting 12 AM 2.4 units / hr 4 pm 2.4 units/ hr Bolus setting Insulin Carbohydrate Ratio (s) 12 AM? to 12 AM? 1:7 Correction Factor / Sensitivity Factor 12 AM? to 12 PM? 1:38 12 PM to? 12 AM? 1:38 Active Insulin Time:? 5 hours Target(s): 12 AM? to 12 PM? 110 mg/dL No retinopathy Last eye exam:09/2023 Will schedule appt with opth Positive neuropathy: Complaints of numbness, tingling but no cramping in the lower extremities, sees Podiatry regularly and has callus formation on her feet on gabapentin gets pain in right great toe No nephropathy. EGFR > 60, microalbumin 11.0 Has CAD on statin most recent: 02/2023 LDL 76 some leg swelling she has f/u with cardiology has some shortness of breath and had pft's with f/u scheduled for f/u last ct mod copd walks short distance babysits grandson 18 months 2-3 days per week Exercise: Limited. [facility] screen Fibrosis-4 (Fib-4) Index for liver fibrosis (calculated on lab work done: 09/2023 ) 1.08 points Advanced fibrosis excluded Approximate Fibrosis stage Altaf 0-1 *Use with caution in patients <35 or >65 years old, as the score has been shown to be less reliable in these patients. Prior Imaging abdominal ultrasound 2021:LIVER: Liver size is enlarged measuring 20.3 cm in length. The liver contour is normal. There is increased liver echogenicity with areas of focal fatty sparing. No focal hepatic lesion. There is no intrahepatic biliary duct dilatation seen. Action Plan: rescreen two years from date of screening labs09/2025 [facility] Medical History Obesity History of DC (myocardial infarction) (~2011) Personal history of nicotine dependence Tubular adenoma of colon (~2000) Vitamin D deficiency Hyperlipidemia LDL goal <70 Arthritis Neuropathy CAD (coronary artery disease) Type 2 diabetes mellitus with diabetic neuropathy, unspecified (~2004) Surgical History History of bilateral breast reduction surgery History of tubal ligation History of foot surgery History of laparoscopic cholecystectomy History of heart artery stent History of colonoscopy History of appendectomy Family History Father Diabetes mellitus CVD (cardiovascular disease) Mother Oral cancer Brother Diabetes mellitus Social History Household Members: Spouse Patient Tobacco Use Status: Former Tobacco user Cigarette Packs Per Day: 1 Years Smoked: 25 Physical Exam Vital Signs: Last Vital Signs Pulse 81 05/13/24 07:32 BP 104/60 05/13/24 07:32 Const Other: Absence of Cushingoid features. Absence of acromegalic features. Neck exam reveals nl size thyroid about 15 gms. No thyroid nodules palpable. No carotid bruits present. Lungs CTA. Heart S1 S2, Reg R/R. No M/R G. Skin exam reveals absence of vitiligo or acanthosis nigricans. No edema Visual exam of foot performed. No ulcerations or open lesions. No inter digit maceration or fissuring. No onychomycosis, slight callous first left toe Sensation absent to monofilament exam. Vibratory sensation is absentl with 128 Hz tuning fork. Hammertoes more pronounced on the left foot Office Procedures Glucose Monitoring Details Details: see [facility] [id number] - Glucose monitoring, continuous-physician I&R Procedure code (CPT) selection complete Results AMB Hemoglobin A1c AMB Hemoglobin A1c 6.2 % Last Edit by BELEN Monahan on 05/13/24 07:46 Results Reviewed Results Reviewed: Laboratory Last Values Glucose (Clinic) 115 mg/dL (60-115) 05/13/24 07:36 Hgb A1c (Clinic) 6.2 % (4.0-6.0) H 05/13/24 07:39 Assessment & Plan Assessment & Plan (1) Type 2 diabetes mellitus with diabetic neuropathy, unspecified: Onset Date: ~2004 Comment: (IDDM2, with neuropathy) Code(s): E11.40 - Type 2 diabetes mellitus with diabetic neuropathy, unspecified Category: Medical Qualifiers: Diabetes mellitus prison insulin use: with salvage determiner use Qualified Code(s): E11.40 - Type 2 diabetes mellitus with diabetic neuropathy, unspecified; Z79.4 - group home (current) use of insulin Plan: 68-year-old type 2 diabetic with complications of CAD and neuropathy on gabapentin on an Omnipod insulin pump along with Ozempic with most recent A1c of 6.2%. Lows have improved with setting corrections made last visit She has restarted Ozempic and stopped Mounjaro She was advised to increase her water consumption to offset any constipation triggered by Ozempic. She has been drinking one large mug and asked to try to drink 2 per day. she uses miralzx/ducalox prn. Continue to add fiber and green leafy vegetables to her diet. If she develops any issues with the abdominal pain, hard abdomen indicating bowel obstruction that she should stop the medication and seek emergent medical assistance. She will follow up with GI. Patient was encouraged to keep her upcoming appointments with Cardiology, Pulmonary and podiatry. 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 Continue to repeat every 15 minutes until blood sugar is normal. Check your feet daily looking for any signs of infection, ulceration and seek medical attention if this occurs. Break in shoes gradually and do not wear open-toed shoes or walk barefooted. Symptoms of DKA (diabetic ketoacidosis): early: frequent urination, dry mouth, fatigue, feeling ill, severe symptoms: ketones in the urine, abdominal pain, nausea, vomiting and weakness. It is important to hydrate with sugar free liquids every 15-30 minutes and bring the sugars down to normal levels. If you are moderate or severe with ketones or unable to bring glucose to less than 200, go to the emergency room. Troubleshooting after starting new pod or inserting new insulin set: Occlusion, adhesive tape sensitivity, redness Check BG 2 hours after site change Safety information: Importance of a backup plan, for manual injections, proper prescriptions and emergency supplies ketone strips, and rules for testing for ketones Coding Level of Care Code Est Pt Level 4 (77298) Diagnoses Type 2 diabetes mellitus with diabetic neuropathy, with long-term current use of insulin E11.40; Z79.4 Diabetes mellitus salvage determiner insulin use: with prison use CPT Codes Details - CPT: 33845 - Glucose monitoring, continuous-physician I&R ([id number]) Time Spent (min) 35 Comment Reviewing labs/provider notes, glucose sensor/pump reports, face to face, chart doc
[2024-05-13 07:32] VITALS: BP 104/60; PULSE 81
[2024-05-13 07:40] LABS: Glucose, Whole Blood 115 mg/dL (60-115)
== END 2024-05-13 07:47 | disposition home or self-care (01) ==
PROVIDERS: PCP Internal Medicine; Visit Provider Nurse Practitioner Adult Health
DX: Z13.9 Encounter for screening, unspecified (principal); E11.40 Type 2 diabetes mellitus with diabetic neuropathy, unspecified; Z79.4 Long term (current) use of insulin
CPT/HCPCS: 95251; 99214

== ENCOUNTER → 2024-05-13 07:05 | Outpatient (BNVA) | payer MEDICARE, OTHER, SELFPAY | PROVIDERS: PCP Internal Medicine; Visit Provider Nurse Practitioner Adult Health | DX: E11.40 Type 2 diabetes mellitus with diabetic neuropathy, unspecified (principal); Z79.4 Long term (current) use of insulin; Z96.41 Presence of insulin pump (external) (internal) | CPT/HCPCS: 82947; 83036; 99212 ==

== ENCOUNTER 2024-08-12 07:55 | Outpatient (AMB) | payer MEDICARE, OTHER, SELFPAY ==
--- NOTE | 2024-08-12 07:20 | A.OFFVIS_ITS ---
Vital Signs 08/12/24 07:57 Height 5 ft 8 in Weight 227 lb 1.218 oz BMI 34.5 BP 118/68 Blood Pressure Location Rt brachial Position Sitting Pulse 82 Pulse Source Pulse Oximeter Pulse Oximetry (%) 97 Oxygen Delivery Method Room Air Intake Visit Reasons: DM Intake Note: Patient presents today for a follow-up on Type 2 Diabetes Mellitus: Last Diabetic eye exam was on: 08/23/2023, [facility] Last Podiatry exam was on: 07/16/2024, [facility] 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 Accompanied by: Self / Same As Patient Allergies azithromycin [From ZITHROMAX] Allergy (Unknown, Verified 08/12/24 07:58) RASH bee pollen [BEE STINGS] Allergy (Unknown, Verified 08/12/24 07:58) ANAPHYLAXIS erythromycin base [ERYTHROMYCIN BASE] Allergy (Unknown, Verified 08/12/24 07:58) RASH morphine [MORPHINE] Allergy (Unknown, Verified 08/12/24 07:58) BRADYCARDIA, heart rate slows down neomycin Allergy (Unknown, Verified 08/12/24 07:58) adema bees Allergy (Unknown, Uncoded 08/12/24 07:58) anaphylaxis Taurine Allergy (Unknown, Uncoded 08/12/24 07:58) hives HPI Comments Details: Patient is 68 yo female with DM type 2 diagnosed around 2004, for management of her diabetes. 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 She was last seen 05/13/24 with a Hemoglobin A1c of 6.2%. HgbA1C 08/12/24 %. 02/07/2024 5.9 %. She was changed from Mounjaro to low-dose Ozempic which she is taking it 0.5 mg. She reports she has had moves her bowels several times per week and it was not hard when she does have a bowel movement. She never feels bloated or hard abdomen and has attempted to increase her fiber. She is now up to several glasses of water daily.. She is on an Omnipod insulin pump. Prior medications: Metformin intolerant due to gastric upset, ,mao: wasn't effective at low dose nd had constipation Diabetes medications Novlog via T-slim X2 pump with control IQ Ozempic 0.5mg weekly Backup pump failure plan 36 units of Degludec and Humalog according to her usual dosing. Dexcom average glucose: 122 14 day continuous glucose monitor report reviewed Glucose Managment indicator [ ] % Days with CGM data [ ] % TIme in ranges: 0 % very high (above 250) 2 % high ?(181-250) 96% in range ?(70-180] 1 % low (69-55) 1 % ?very low (below 54) Interpretation: In excellent control Omnipod insulin pump Basal Setting 12 AM 2.4 units / hr 4 pm 2.4 units/ hr Bolus setting Insulin Carbohydrate Ratio (s) 12 AM? to 12 AM? 1:7 Correction Factor / Sensitivity Factor 12 AM? to 12 PM? 1:38 12 PM to? 12 AM? 1:38 Active Insulin Time:? 5 hours Target(s): 12 AM? to 12 PM? 110 mg/dL No retinopathy Last eye exam:09/2023 Will schedule appt with opth Positive neuropathy: Complaints of numbness, tingling but no cramping in the lower extremities, sees Podiatry regularly and has callus formation on her feet on gabapentin gets pain in right great toe No nephropathy. EGFR > 60, microalbumin 11.0 Has CAD on statin most recent: 02/2023 LDL 76 She is followed by Cardiology Exercise: Limited. [facility] screen Fibrosis-4 (Fib-4) Index for liver fibrosis (calculated on lab work done: 09/2023 ) 1.08 points Advanced fibrosis excluded Approximate Fibrosis stage Altaf 0-1 *Use with caution in patients <35 or >65 years old, as the score has been shown to be less reliable in these patients. Prior Imaging abdominal ultrasound 2021:LIVER: Liver size is enlarged measuring 20.3 cm in length. The liver contour is normal. There is increased liver echogenicity with areas of focal fatty sparing. No focal hepatic lesion. There is no intrahepatic biliary duct dilatation seen. Action Plan: rescreen two years from date of screening labs09/2025 [facility] Medical History Obesity History of [place] (myocardial infarction) (~2011) Personal history of nicotine dependence Tubular adenoma of colon (~2000) Vitamin D deficiency Hyperlipidemia LDL goal <70 Arthritis Neuropathy CAD (coronary artery disease) Type 2 diabetes mellitus with diabetic neuropathy, unspecified (~2004) Surgical History History of bilateral breast reduction surgery History of tubal ligation History of foot surgery History of laparoscopic cholecystectomy History of heart artery stent History of colonoscopy History of appendectomy Family History Father Diabetes mellitus CVD (cardiovascular disease) Mother Oral cancer Brother Diabetes mellitus Social History Household Members: Spouse Patient Tobacco Use Status: Former Tobacco user Cigarette Packs Per Day: 1 Years Smoked: 25 Physical Exam Vital Signs: Last Vital Signs Pulse 82 08/12/24 07:57 BP 118/68 08/12/24 07:57 Pulse Ox 97 08/12/24 07:57 Oxygen Delivery Method Room Air 08/12/24 07:57 BMI result Body Mass Index 34.5 Const Other: Absence of Cushingoid features. Absence of acromegalic features. Neck exam reveals nl size thyroid about 15 gms. No thyroid nodules palpable. No carotid bruits present. Lungs CTA. Heart S1 S2, Reg R/R. No M/R G. Skin exam reveals absence of vitiligo or acanthosis nigricans. No edema Visual exam of foot performed. No ulcerations or open lesions. Hammer toes left sided, mild callous left great toe No inter digit maceration or fissuring. No onychomycosis, no callouses. Sensation intact to monofilament exam. Vibratory sensation is normal with 128 Hz tuning fork. 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 Would not increase the dose secondary to some constipation. The patient had an opportunity to ask questions regarding treatment plan. The patient expressed understanding and agreement with the above treatment plan. The patient is aware they should contact our office by phone for worsening glucose readings or for any low blood sugars which may warrant a change in diabetes medication. Compliance is encouraged with medications and any followup testing/consults which may have been ordered. Orders: Orders AMB Hemoglobin A1c Today E11.40 - Type 2 diabetes mellitus with diabetic neuropathy, unspecified, Z79.4 - [facility] (current) use of insulin Comprehensive Met. Panel Today E11.40 - Type 2 diabetes mellitus with diabetic neuropathy, unspecified, Z79.4 - [facility] (current) use of insulin Lipid Panel Today E11.40 - Type 2 diabetes mellitus with diabetic neuropathy, unspecified, Z79.4 - [facility] (current) use of insulin Microalbumin, Random (w Creat) Today E11.40 - Type 2 diabetes mellitus with diabetic neuropathy, unspecified, Z79.4 - [facility] (current) use of insulin Creatinine Urine Today E11.40 - Type 2 diabetes mellitus with diabetic neuropathy, unspecified, Z79.4 - [facility] (current) use of insulin Medications: New semaglutide (Ozempic) 1 mg (0.75 mL) subcut QWEEK 28 days 3 mL 11RF Discontinued cholecalciferol (vitamin D3) (Vitamin D3) Discontinued Reason: Doctor's Order 50 mcg PO DAILY 90 caps 1RF Patient Instructions: Check your feet daily looking for any signs of infection, drainage, redness, ulceration and seek medical attention if this occurs. Break in shoes gradually and do not wear open-toed shoes or walk stocking footed or barefooted. Coding Level of Care Code Est Pt Level 4 (36439) Complex EM visit Add On G2211 Diagnoses Type 2 diabetes mellitus with diabetic neuropathy, with long-term current use of insulin E11.40; Z79.4 Diabetes mellitus group home insulin use: with group home use Time Spent (min) 30 Comment Reviewing labs/provider notes, glucose sensor/pump reports, face to face, chart doc
[2024-08-12 07:57] VITALS: BP 118/68; PULSE 82; O2SAT 97; BMI 34.5
--- OUTSIDE RECORDS SUMMARY | 2024-08-12 08:01 | XMS_ITS ---
[facility] Address [address] [place] [address] Care Team Providers Care Eyewear Consultant Name Role Phone Edward Geronimo MD Primary Care Provider Sis Jay Unavailable [phone] Allergies Allergen (clinical drug ingredient) Drug/Non Drug Allergy documented on EMR Reaction Allergy Type Onset Date Status bee wasp (uncoded) Unknown Allergy A ctive erythromycin Erythromycin Unknown Drug Allergy A ctive Adhesive Unknown Allergy Active morphine Morphine Unknown Drug Allergy Active REASON FOR VISIT At Risk Footcare, Pcp-11/13, At Risk Footcare, Toe Irritation Medications Medication SIG (Take, Route, Frequency, Duration) Notes Start Date End Date Status Tylenol Active Motrin Active Extra Depth Orthopedic Shoes (1 Pair) with Customized Heat Molded Multidensity Innersoles (3 Pair) as directed Dx: NIDDM/Polyneuropathy (E11.42), Hammertoe Foot Deformity (M20.41,M20.42), Preulcerative Skin Lesion(s) (L85.1 11/27/2023 Active dilTIAZem HCl Active Fioricet Active Compazine Active rOPINIRole HCl Activ e EpiPen Active Rosuvastatin Calcium Active PriLOSEC Active Nortriptyline HCl Ac tive Mounjaro Not-Taking Ozempic Active Gabapentin Active Aspirin Active Social History Tobacco Use: Social History Observation Description Date Details (start date - stop date) Former Smoker NA - NA Tobacco Use/Smoking Question Answer Notes Are you a: former smoker Additional Findings: Tobacco Non-User Current no n-smoker Alcohol Screen Question Answer Notes Did you have a drink containing alcohol in the p ast year? Yes Points 0 Interpretation Negative Tobacco use other than smoking: Question Answer Notes Are you an other tobacco user? No Problems Problem Type SNOMED Code ICD Code Onset Dates Problem Status W/U Status Risk Notes Problem Neuropathic ulcer of toe of right foot, limited to breakdown of skin (L97.511) Active confirmed Problem Neuropathic ulcer of toe of left foot, limited to breakdown of skin (L97.521) Active confirmed Vital Signs Height 5ft 8in in 02/12/2024 Weight 208 lbs 02/12/2024 BMI 31.62 kg/m2 02/12/2024 Encounters Encounter Location Date Provider Diagnosis [facility] [address] [address] 02/12/2024 Sis Loaiza Other hammer toe(s) (acquired), left foot M20.42 ; Other hammer toe(s) (acquired), right foot M20.41 ; Type 2 diabetes mellitus with diabetic polyneuropathy E11.42 and Neuropathic ulcer of toe of right foot, limited to breakdown of skin L97.511 Assessments Encounter Date Diagnosis (ICD Code) Assessment Notes Treatment Notes Treatment Clinical Notes Section Notes 02/12/2024 Other hammer toe(s) (acquired), left foot (ICD-10 - M20.42) 02/12/2024 Other hammer toe(s) (acquired), right foot (ICD-10 - M20.41) 02/12/2024 Type 2 diabetes mellitus with diabetic polyneuropathy (ICD-10 - E11.42) 02/12/2024 Neuropathic ulcer of toe of right foot, limited to breakdown of skin (ICD-10 - L97.511) Plan Of Treatment Next Appt Details Follow Up: 2 Months, Reason: Provider Name:Sis garcia, 10/08/2024 09:15:00 AM, [address] [place], [address], Procedure Notes * Category Sub-Category Detail Notes Debride skin< 25 sq cm Open wound NEUROPATH Y: Physician of record performed open wound selective debridement of first 25 sq cm or less, of devitilized necrotic/nonviable soft tissue, fibrin, and exudate extending from the epidermis through the dermis, utilizing sharp dissection with sterile 15 blade, and/or tissue nippers. Hemostasis was controlled through direct pressure. Sterile antibiotic dressing applied, ANESTHESIA was not required due to presence of NEUROPATHY. Post debridement measurements: 2 mm x 2 mm x 2 mm. Character of the wound post debridement is stable (31088), The patient was instructed to change dressings according to orders or PRN saturation, leaks, The patient is to cont the local wound care as directed till condition is completely healed Keratoma Treatment Parring or Cutting o f Benign Hyperkeratotic Lesion(s) (-56) 2-4 Lesions - The Benign hyperkeratotic lesions, as described above were pared, and/or cut utilizing a sterile 15 blade, tissue nippers, and/or dremel - 43991 Progress Notes * Marielle BALBUENA MDOB:[birth year] (68 yo F)Acc No.[id number]:02/12/2024 Progress Note Patient:?Marielle Balbuena Provider:?Sis Loaiza DPM :1955???Age:68 Y???Sex:Female D ate:02/12/2024 Address:[address] [place], [place] [id number] Pcp:Edward Geronimo MD Subjective: * Chief Complaints: * ???At Risk FootcarePcp-11/13 At Risk FootcareToe Irritation * HPI: ???At Risk footcare:?Pt States Last PCP Visit:?Date?11/06/2023 ???Toe pain:?Location:?B/L feet.?Duration:?several years.?Course:?worse.?Aggravated by:?shoes, any pressure.?Treatments:?states still needs - appt scheduled for next month.? * ROS:?General/Constitutional:?Nausea?admits.?Vomiting?admits.?Hunger Thirst?denies.?Loss appetite?denies.?Chills?denies.?Fatigue?admits.?Fever?denies.?Night Sweats?denies.?Unexplained weight loss?denies.?Unexplained weight gain?denies.?HEENTM:?Dentures?denies.?Dizziness?denies.?Glasses/contacts?admits.?Retinopathy?de nies.?Blurred/double vision?denies.?TMJ?denies.?Discharge/drainage?denies.?Implants?denies.?Sore throat?denies.?Dental implants?denies.?Hard of hearing ?denies.?Difficulty chewing/swallowing/speaking?denies.?Nose bleeds?denies.?Sore mouth?denies.?Respiratory:?On Oxygen?denies.?Pneumonia/pleurisy?denies.?Bronchitis?denies.?Emphysema?denies.?C oughing?denies.?Cough blood?denies.?Shortness of breath?denies.?Wheezing?denies.?Cardiovascular:?Pacemaker?denies.?MVP?denies.?WPW?denies.?CHF?denies.?Heart attack?denies.?Septal defect?denies.?Rapid beat?denies.?Chest pain ?admits.?Atrial Fib.?denies.?Murmur/Palpitations?denies.?Gastrointestinal:?Hemorrhoids?denies.?Stomach/Abdominal pain?denies.?Dark blood stool?denies.?Irritable bowel ?denies.?Constipation?admits.?Diarrhea?denies.?Hematology:?Swelling?denies.?Clots?denies.?Varicose Veins?admits.?Bruising?denies.?Bleeding problem?denies.?Genitourinary:?Blood urine?denies.?Frequent/Painfu/urination/bladder control?denies.?Kidney stones?denies.?Infection (UTI)?denies.?Nephropathy?denies.?sex trans dis (STD)?denies.?Prostate?denies.?Musculoskeletal:?Hammertoes?admits.?Bunions?denies.?Back Pain?admits.?Muscle Cramps/ Resting?denies.?Muscle cramps / walking?denies.?Generalized aches and pains?admits.?Weakness?denies.?Integ.:?Wylie?denies.?Scars?denies.?Corns/calluses?admits.?Ingrown nails?admits.?Painful nails?denies.?Open Sores?admits.?Rashes?denies.?Neurologic:?Difficulty sleeping?denies.?Brain disorder?denies.?Numbness?admits.?Balance trouble?denies.?Confusion?denies.?Fainting/blackouts?denies.?Tingling?admits.?Tr emors?denies.? * Medical History:? * Surgical History:?Stent [facility] reduction foot surgery * Hospitalization/Major Diagno stic Procedure:?Denies Past Hospitalization * Family History:?Mother: dece ased, cancer.?Father: , arthritis, diabetes, stroke, poor circulation.?Siblings: heart attack, high blood pressure.? * Social History:?Tobacco Use:?Tobacco Use/Smoking?Are you a:?former smoker ?Additional Findings: Tobacco Non-User?Current non-smoker ?Tobacco use other than smoking?Are you an other tobacco user??No ???Drugs/Alcohol:?Drugs?Have you used drugs other than those for medical reasons in the past 12 months??Yes ?Marijuana??Yes gummies for sleep ?Alcohol Screen?Did you have a drink containing alcohol in the past year??Yes ?Points?0 ?Interpretation?Negative ???Miscellaneous:?Caffeine: yes, 2-3 cups per day tea. ?Children: yes, 2. ?Exercise: yes, quilring, sewing crafts, cooking, baby sit. ?Marital status: . 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 * Medications:?TakingOzempic A spirin Gabapentin Nortriptyline HCl EpiPen PriLOSEC Rosuvastatin Calcium rOPINIRole HCl Compazine Fioricet dilTIAZem HCl Motrin Tylenol Extra Depth Orthopedic Shoes (1 Pair) with Customized Heat Molded Multidensity Innersoles (3 Pair) as directed Dx: NIDDM/Polyneuropathy (E11.42), Hammertoe Foot Deformity (M20.41,M20.42), Preulcerative Skin Lesion(s) (L85.1Taking Ozempic Taking Aspirin Taking Gabapentin Taking Nortriptyline HCl Taking EpiPen Taking PriLOSEC Taking Rosuvastatin Calcium Taking rOPINIRole HCl Taking Compazine Taking Fioricet Taking dilTIAZem HCl Taking Motrin Taking Tylenol Taking Extra Depth Orthopedic Shoes (1 Pair) with Customized Heat Molded Multidensity Innersoles (3 Pair) as directed Dx: NIDDM/Polyneuropathy (E11.42), Hammertoe Foot Deformity (M20.41,M20.42), Preulcerative Skin Lesion(s) (L85.1Not-Taking/PRNMounjaro Medication List reviewed and reconciled with the patientNot-Taking/PRN Mounjaro Medication List reviewed and reconciled with the patient * Allergies:?ErythromycinMorph ineAdhesivebee crescencioyeshayna[Allergies Verified] Objective: * Vitals:?Ht: 5ft 8in, Wt:208, BMI:31.62, Shoe size: 9-10, BS: 99, Ht-cm: 172.72 cm, Wt-k.35 kg. * ???Past Orders: ???Lab:HEMOGLOBIN A1C (GLYCO HEMOGLOBIN) (Order Date - 10/22/2023) (Collection Date - 10/22/2023) ? Value Reference Range ?HEMOGLOBIN A1C % (HH) 5.7 * Examination: ???Ophthalmology Referral: ?DIABETES EYE EXAM?Diabetic Retinopathy Screening:?Yes ?Findings of Diabetic Eye Exam:?no retinopathy?Neurological: ?SENSORY:? Neurological exam demonstrates, reduced light touch sensation, reduced sharp/dull pin prick discrimination , B/L, 5.07 monofilament test performed at plantar aspects of 5 varied sites per foot shows sensation, reduced , B/L.?Dermatologic: ?SKIN FINDINGS:? Skin exam reveals Keratotic lesion(s) located at , TA , T2 , T5 .?ULCER:?LOCATION plantar proximal ?T5? SIZE,?2 mm X?2 mm X 2mm, BASE, granular, RIM, hyperkeratotic, UNDERMINING, absent, TRACKING, Full thickness breakdown of skin, DRAINAGE, serosanguineous, mild, NECROTIC TISSUE, loosely-adherent, yellow slough, MALODOR, absent, CALOR, absent, ERYTHEMA, absent, PAIN ON PALPATION, present.?Vascular: ?DP PULSES(B):?3/4, B/L.?PT PULSES(B):?3/4, B/L.?CAPILLARY FILL TIME:?immediate, all digits, B/L.?TROPHIC CONDITION-TEXTURE/ELASTICITY/TURGOR/HAIR GROWTH(B):?sparce hair growth.?TEMPERTURE GRADIENT(C):?normal, warm to cool, proximal to distal, B/L, B/L.?Orthopedic: ?MUSCLE STRENGTH:?5/5 all groups in a symmetrical fashion, B/L.?DIGITAL DEFORMITIES:?Digital contracture, PIPJ, 2-5 B/L, incompl-reducible to push-up test, no over, nor underlapping, with evidence of shoe producing skin irritation Reveals pain/swelling/redness/enlargement of Plantar IPJ right hallux.?FOOTWEAR:?worn, non-supportive, shoe gear properties exacerbate patient's foot/toe deformity.?General Examination: ?GENERAL APPEARANCE:?Reveals a pleasant, alert, well nourished, well- developed, well hydrated individual, who demonstrates proper attention to hygiene/body habitus, and is in no acute distress, Pt serves as own historian for office visit today.?ORIENTED:?person, place, and time.?FOOT EXAM:?Lower Extremity Neurological Exam performed:?Yes ?Footwear Evaluation?Footwear Evaluation performed:?Yes??? Assessment: * Assessment: 1.?Other hammer toe(s) (acqu ired), right foot - M20.41 (Primary), Chronic problem, Worse (4),Rx Management (4)?2.?Other hammer toe(s) (acquired), left foot - M20.42, Chronic problem, Worse (4),Rx Management (4)?3.?Type 2 diabetes mellitus with diabetic polyneuropathy - E11.42?4.?Neuropathic ulcer of toe of right foot, limited to breakdown of skin - L97.511? Plan: * Treatment: * Procedures:?Debride skin< 25 sq cm:?Open wound?NEUROPATHY: Physician of record performed open wound selective debridement of first 25 sq cm or less, of devitilized necrotic/nonviable soft tissue, fibrin, and exudate extending from the epidermis through the dermis, utilizing sharp dissection with sterile 15 blade, and/or tissue nippers. Hemostasis was controlled through direct pressure. Sterile antibiotic dressing applied, ANESTHESIA was not required due to presence of NEUROPATHY. Post debridement measurements: 2 mm x 2 mm x 2 mm. Character of the wound post debridement is stable (12529), The patient was instructed to change dressings according to orders or PRN saturation, leaks, The patient is to cont the local wound care as directed till condition is completely healed.?Keratoma Treatment:?Parring or Cutting of Benign Hyperkeratotic Lesion(s)?(-56) 2-4 Lesions - The Benign hyperkeratotic lesions, as described above were pared, and/or cut utilizing a sterile 15 blade, tissue nippers, and/or dremel - 47637.? * Procedure Codes:?69416 ACTIV E WOUND CARE/20 CM OR <, Modifiers: XS * Preventive Medicine:? ??Counseling:?Discussion:?-13: Office or other outpatient visit for the evaluation and management of an established patient, which required a medically appropriate history and/or examination and LOW level of DECISION MAKING for: 1 STABLE ACUTE UNCOMPLICATED PROBLEM, 2 OR MORE MINOR PROBLEMS, OR 1 STABLE CHRONIC PROBLEM, THAT POSE(S) A LOW RISK FOR MORBIDITY/MORTALITY. The visit on the day of the encounter encompassed interpreting the data and educating the patient as to the nature of their condition, treatment options available according to their individual PMH, meds, allergies, and overall health/living conditions, as well as any potential risks or complications that may occur from a failure to adhere to, and participate in, the recommended course of therapy. The discussion included a complete verbal, and/or written explanation of the examination results, any x-rays taken, the proposed diagnosis, and outline of the treatment plan. A schedule for future care needs was also explained. The patient verbalized an understanding of the instructions at this time and agreed to be an active participant in their treatment. If the patient should think of any questions or concerns after the visit, I have encouraged the patient to call the office.?Digital Treatment:?HT- I explained to the patient the possible etiologies of Hammertoes, including genetics/foot type/shoegear/activity level/exercise routine and the risks/benefits of all the different treatment options for their pain including: No treatment at all, Rest, Ice, New/supportive/wider/deeper Shoegear, Digital Padding/Strapping/Taping/Bracing/Gel protective sleeves, Foot/Ankle AFO Bracing, Stretching exercises, Deep Tissue Massage, Arch support/shoe inserts with splay metatarsal padding, and Custom orthoses. I insisted that any digital devices be removed daily and not worn overnight for safety. The patient is to carefully examine the toes daily for any skin irritation while using any splinting or padding device. The advantages and disadvantages of each option were discussed and the patients questions re: shoegear, padding, custom vs prefabricated inserts, activity level, and consistency in home treatment regimens for optimal success were answered to their verbally confirmed satisfaction.?Shoe Gear Counseling:?Patient to obtain shoes hopefully soon.? * Follow Up:?2 Months * Images: * Sign off status: Completed true * Provider:?Sis Loaiza DPM Date:? Generated for Margueritei ana/Suze/eTransmitting on:?08/12/2024 08:01 AM EDT History and Physical Notes * HPI (History of Present Illness) Category Sub-Category Detail Notes Category Not es Toe pain Location: B/L feet Duration: several years Course: worse Aggravated by: shoes, any pressure Treatments: states still needs - appt scheduled for next month At Risk footcare Pt States Last PCP Visit: Date: 4 Examination Category Sub-Category Detail Notes Category Not es Neurological SENSORY: Neurological exa m demonstrates, reduced light touch sensation, reduced sharp/dull pin prick discrimination , B/L, 5.07 monofilament test performed at plantar aspects of 5 varied sites per foot shows sensation, reduced , B/L Dermatologic SKIN FINDINGS: Skin exam reveal s Keratotic lesion(s) located at , TA , T2 , T5 ULCER: LOCATION plantar pro ximal T5 SIZE, 2 mm X 2 mm X 2mm, BASE, granular, RIM, hyperkeratotic, UNDERMINING, absent, TRACKING, Full thickness breakdown of skin, DRAINAGE, serosanguineous, mild, NECROTIC TISSUE, loosely-adherent, yellow slough, MALODOR, absent, CALOR, absent, ERYTHEMA, absent, PAIN ON PALPATION, present Orthopedic FOOTWEAR EVALUATION: worn, non-s upportive, shoe gear properties exacerbate patient's foot/toe deformity DIGITAL DEFORMITIES: Digital contracture , PIPJ, 2-5 B/L, incompl-reducible to push-up test, no over, nor underlapping, with evidence of shoe producing skin irritation Reveals pain/swelling/redness/enlargement of Plantar IPJ right hallux MUSCLE STRENGTH: 5/5 all groups in a symmetrical fashion, B/L General Examination GENERAL APPEARANCE: Reveals a pleasant, alert, well nourished, well-developed, well hydrated individual, who demonstrates proper attention to hygiene/body habitus, and is in no acute distress, Pt serves as own historian for office visit today FOOT EXAM: Lower Extremity Neurological Exa m performed:: Yes ORIENTED: person, place, and t karen Footwear Evaluation Footwear Evaluation performe d:: Yes Ophthalmology Referral DIABETES EYE EXAM Diabetic Retinopa thy Screening:: Yes Findings of Diabetic Eye Exam:: no retin opathy Vascular DP PULSES (B): 3/4, B/L PT PULSES (B): 3/4, B/L CAPILLARY FILL TIME: immediate, all digi ts, B/L TEMPERTURE GRADIENT (C): normal, warm to cool, proximal to distal, B/L, B/L TROPHIC CONDITION-TEXTURE/ELASTICITY/TURGOR/HAIR GROWTH (B): sparce hair growth
--- OUTSIDE RECORDS SUMMARY | 2024-08-12 08:01 | XMS_ITS ---
Author Organization [facility] Address [address] [place] [address] Care Team Providers Care Assistant Professor Of German Name Role Phone Edward Geronimo MD Primary Care Provider Finn Troy Unavailable [phone] Allergies Allergen (clinical drug ingredient) Drug/Non Drug Allergy documented on EMR Reaction Allergy Type Onset Date Status Talwin Unknown Drug Allergy Active morphine Morphine Sulfate Unknown Drug Allergy Active erythromycin Erythromycin Unknown Drug Allergy A ctive amoxicillin / clavulanate Augmentin Unknown Drug Allergy Active bees (uncoded) Unknown Allergy Activ e neomycin Neomycin Unknown Drug Allergy Active azithromycin Zithromax Unknown Drug Allergy Acti ve REASON FOR VISIT Patient presents today for a SCREENING COLON Medications Medication SIG (Take, Route, Frequency, Duration) Notes Start Date End Date Status Albuterol Sulfate HFA 108 (90 Base) MCG/ACT 1 puff as needed Inhalation every 4 hrs Active NovoLOG 100 UNIT/ML as directed Injection Active Vitamin D 50 MCG (1999 UT) 1 tablet Oral ly Once a day Active Linzess 145 MCG 1 capsule at least 3 0 minutes before the first meal of the day on an empty stomach Orally Once a day for 30 day(s) 06/11/2024 Active Mounjaro 2.5 MG/0.5ML as directed Subcutaneous Not-Taking EpiPen prn Active Zofran 4 MG prn Orally Not-Hany ing Crestor 40mg Active Fioricet prn Active Aspir-81 81mg Active Atenolol 75mg Active Gabapentin 300mg Act bryson Rosuvastatin Calcium 40 MG 1 tablet Oral ly Once a day Active dilTIAZem HCl ER 240 MG 1 tablet Orally Once a day Active rOPINIRole HCl 4 MG 1 tablet 1 to 3 hour s before bedtime Orally Once a day Active Nortriptyline HCl 75mg Active PriLOSEC 20mg qd Active Prochlorperazine Edisylate 10 MG/2ML 1 mL as needed Injection every 8 hrs Active EpiPen 2-Victor M 0.3 MG/0.3ML as directed Injection Active Social History Tobacco Use: Social History Observation Description Date Details (start date - stop date) Former Smoker NA - NA Tobacco Use/Smoking Question Answer Notes Patient is a former smoker How long has it been since you last smoked? 1-5 years Alcohol Screen Question Answer Notes Did you have a drink contain ing alcohol in the past year? Yes Points 1 Interpretation Negative How often did you have 6 or more drinks on one occasion in the past year? Never (0 point) How many drinks did you have on a typical day when you were drinking in the past year? 1 or 2 drinks (0 point) How often did you have a dri nk containing alcohol in the past year? Monthly or less (1 point) Section Notes: Nonsmoker x 3yrs; no sig alc ohol Vital Signs Temperature 98.6 degrees Fahrenheit 06/11/19 25 Blood pressure systolic 001 mm Hg 06/11/19 25 Blood pressure diastolic 01 mm Hg 025 Height 68 in 06/11/2024 Weight 228 lbs 06/11/2024 BMI 34.66 kg/m2 06/11/2024 Encounters Encounter Location Date Provider Diagnosis [facility] [address] [facility] [address] [place] [phone] 06/11/2024 Finn Maravilla Chronic constipation K59.09 ; Encounter for screening for malignant neoplasm of colon Z12.11 and Colon cancer screening Z12.11 Assessments Encounter Date Diagnosis (ICD Code) Assessment Notes Treatment Notes Treatment Clinical Notes Section Notes 06/11/2024 Chronic constipation (ICD-10 - K59.09) Let me know results of the cardiac cath. We may need to postpone if you are put on a new blood thinner for a stent. Have [facility] adjust your Insulin pump for the two day prep I will send over a Rx for Linzess, but use Miralax and 2 Metamucil fiber pills with a lot of water twice a day every day 06/11/2024 Encounter for screening for malignant neoplasm of colon (ICD-10 - Z12.11) 06/11/2024 Colon cancer screening (ICD-10 - Z12.11) Plan Of Treatment Medication Medication Name Sig Start Date Stop Date Notes Linzess 145 MCG 1 capsule at least 3 0 minutes before the first meal of the day on an empty stomach Orally Once a day for 30 day(s) 06/11/2024 Treatment Notes Assessment Notes Chronic constipation Let me know results of the cardiac cath. We may need to postpone if you are put on a new blood thinner for a stent. Have [facility] adjust your Insulin pump for the two day prep I will send over a Rx for Linzess, but use Miralax and 2 Metamucil fiber pills with a lot of water twice a day every day Future Test Test Name Order Date COLONOSCOPY 06/11/2024 Next Appt Details Follow Up: prn, Reason: Provider Name:Finn Maravilla , 10/06/2024 07:30:00 AM, [address] [place] [address] , [place], [place], [phone], Progress Notes * CHIN BALBUENAEDOB:0 1955 (68 yo F)Acc No.[id number]:06/11/2024 Progress Notes Patient:?CHIN BALBUENA SHLOMO Provider:?Finn Maravilla MD :1955???Age:68 Y???Sex:Female D ate:06/11/2024 Address:[address] [place], [place] [id number] Pcp:Edward Geronimo MD Subjective: * Chief Complaints: * ???Patient presents today fo r a SCREENING COLON * Medical History:? * Surgical History:?breast red uction surgery cholecystectomy appendectomy tubal ligation plantar fascitis with surgery on right foot right carpal tunnel right foot with pinning of toes * Hospitalization/Major Diagno stic Procedure:?No Hospitalization History. * Family History:?Father: dece ased, diagnosed with HTN (hypertension), Diabetes, Heart disease.?Mother: .? No family history of liver cancer or colon cancer. * Social History:?Tobacco Use:?Tobacco Use/Smoking?Patient is a?former smoker,?How long has it been since you last smoked??1-5 years.?Drugs/Alcohol:?Alcohol Screen?Did you have a drink containing alcohol in the past year??Yes,?How often did you have 6 or more drinks on one occasion in the past year??Never (0 point),?How many drinks did you have on a typical day when you were drinking in the past year??1 or 2 drinks (0 point),?How often did you have a drink containing alcohol in the past year??Monthly or less (1 point),?Points?1,?Interpretation?Negative.?Miscellaneous:?Marital status: . 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 ???Nonsmoker x 3yrs; no sig alcohol. * Medications:?TakingNovoLOG 1 00 UNIT/ML Solution as directed Injection Vitamin D 50 MCG (1999 UT) Tablet 1 tablet Orally Once a day Albuterol Sulfate HFA 108 (90 Base) MCG/ACT Aerosol Solution 1 puff as needed Inhalation every 4 hrs EpiPen 2-Victor M 0.3 MG/0.3ML Solution Auto-injector as directed Injection Prochlorperazine Edisylate 10 MG/2ML Solution 1 mL as needed Injection every 8 hrs rOPINIRole HCl 4 MG Tablet 1 tablet 1 to 3 hours before bedtime Orally Once a day Rosuvastatin Calcium 40 MG Tablet 1 tablet Orally Once a day dilTIAZem HCl ER 240 MG Tablet Extended Release 24 Hour 1 tablet Orally Once a day PriLOSEC 20mg qd Nortriptyline HCl 75mg Gabapentin 300mg Aspir-81 81mg Atenolol 75mg Crestor 40mg Fioricet prn EpiPen prn Taking NovoLOG 100 UNIT/ML Solution as directed Injection Taking Vitamin D 50 MCG (1999 UT) Tablet 1 tablet Orally Once a day Taking Albuterol Sulfate HFA 108 (90 Base) MCG/ACT Aerosol Solution 1 puff as needed Inhalation every 4 hrs Taking EpiPen 2-Victor M 0.3 MG/0.3ML Solution Auto-injector as directed Injection Taking Prochlorperazine Edisylate 10 MG/2ML Solution 1 mL as needed Injection every 8 hrs Taking rOPINIRole HCl 4 MG Tablet 1 tablet 1 to 3 hours before bedtime Orally Once a day Taking Rosuvastatin Calcium 40 MG Tablet 1 tablet Orally Once a day Taking dilTIAZem HCl ER 240 MG Tablet Extended Release 24 Hour 1 tablet Orally Once a day Taking PriLOSEC 20mg qd Taking Nortriptyline HCl 75mg Taking Gabapentin 300mg Taking Aspir-81 81mg Taking Atenolol 75mg Taking Crestor 40mg Taking Fioricet prn Taking EpiPen prn Not- Taking/PRNZofran 4 MG Tablet prn Orally Mounjaro 2.5 MG/0.5ML Solution Auto-injector as directed Subcutaneous Not-Taking/PRN Zofran 4 MG Tablet prn Orally Not-Taking/PRN Mounjaro 2.5 MG/0.5ML Solution Auto-injector as directed Subcutaneous DiscontinuedSenna 8.6 MG Tablet 2 tablets at bedtime as needed Orally Once a day metFORMIN HCl 1000mg MoviPrep 100 GM Solution Reconstituted as directed Orally as directed Medication List reviewed and reconciled with the patientDiscontinued Senna 8.6 MG Tablet 2 tablets at bedtime as needed Orally Once a day Discontinued metFORMIN HCl 1000mg Discontinued MoviPrep 100 GM Solution Reconstituted as directed Orally as directed Medication List reviewed and reconciled with the patient * Allergies:?ZithromaxMorphine SulfateTalwinErythromycinbees - Criticality HighNeomycinAugmentinyes[Allergies Verified] Objective: * Vitals:?Wt: 228 lbs, Ht: 68 in, BMI: 34.66 Index, BP: 001/01 mm Hg, Temp: 98.6, Wt-k.42. Assessment: * Assessment: 1.?Chronic constipation - K5 9.09 (Primary)???2.?Encounter for screening for malignant neoplasm of colon - Z12.11???3.?Colon cancer screening - Z12.11??? Plan: * Treatment: 2.?Encounter for screening f or malignant neoplasm of colon?Procedure: COLONOSCOPY (Ordered for 06/11/2024) 3.?Colon cancer screening?Procedure: COLONOSCOPY (Ordered for 06/11/2024)* with MAC and PAT- 09/22/24 at 10:00 am2 day miralax prepsched for 10/06/24 at 7:30 ampt calling after cardiac cath on 06/17/24 * Procedure Codes:?3017F COLOR ECTAL CA SCREEN DOC [id number] TOBACCO [id number] BP SCR NOT PRFRM REC REASON NOS * Preventive Medicine:? ??Counseling:?Care goal follow-up plan:?Above Normal BMI Follow-up?Dietary management education, guidance, and counseling,?BMI management provided?No.? ??Urinary Incontinence:?Urinary Incontinence?Assessment:?Present,?Plan of care documented:?Yes,?Type of plan of care:?Addressing co-morbid factors.? ??Screenings:?Fall Risk Screening?Fall Risk Assessment:?No falls in the past year,?Screening:?No falls in the past year,?Assessment:?Not performed, no reason specified,?Plan of Care:?Not documented, no reason specified.? * Follow Up:?prn * * Sign off status: Completed true * Provider:?Finn Maravilla MD Date:? 025 Generated for Ayah perez/Suze/Berkleyitting on:?08/12/2024 08:00 AM EDT
--- OUTSIDE RECORDS SUMMARY | 2024-08-12 08:01 | XMS_ITS ---
Author Organization [facility] Address [address] [place] [phone] Care Team Providers Care Life Guard Name Role Phone Edward Geronimo MD Primary Care Provider Unavaila Finn Torres [phone] REASON FOR VISIT waiting on cardiac clearance note for Encounters Encounter Location Date Provider Diagnosis [facility] [address] [place] [phone] 07/23/2024 Finn Maravilla Plan Of Treatment Next Appt Details Provider Name:Finn Maravilla , 10/06/2024 07:30:00 AM, [address] [place] [address] , [place], [place], [phone], Progress Notes * CHIN BALBUENAOB:0 1955 (68 yo F)Acc No.[id number]:07/23/2024 Patient:?CHIN BALBUENA :1955???Age:68 Y???Sex:Female Address: [place] [address] * * Date:?
--- OUTSIDE RECORDS SUMMARY | 2024-08-12 08:01 | XMS_ITS | Patient Health Record ---
Author Organization [facility] Address [address] [place] [address] Care Team Providers Care Assistant Facility Manager Name Role Phone Edward Geronimo MD Primary Care Provider Finn Troy Unavailable [phone] Allergies Allergen (clinical drug ingredient) Drug/Non Drug Allergy documented on EMR Reaction Allergy Type Onset Date Status Talwin Unknown Drug Allergy Active morphine Morphine Sulfate Unknown Drug Allergy Active erythromycin Erythromycin Unknown Drug Allergy A ctive amoxicillin / clavulanate Augmentin Unknown Drug Allergy Active bees (uncoded) Unknown Allergy Activ e neomycin Neomycin Unknown Drug Allergy Active azithromycin Zithromax Unknown Drug Allergy Acti ve Reason For Referral No Information Medications Medication SIG (Take, Route, Frequency, Duration) Notes Start Date End Date Status Rosuvastatin Calcium 40 MG 1 tablet Oral ly Once a day Active Mounjaro 2.5 MG/0.5ML as directed Subcutaneous Not-Taking dilTIAZem HCl ER 240 MG 1 tablet Orally Once a day Active Prochlorperazine Edisylate 10 MG/2ML 1 mL as needed Injection every 8 hrs Active EpiPen prn Active rOPINIRole HCl 4 MG 1 tablet 1 to 3 hour s before bedtime Orally Once a day Active Zofran 4 MG prn Orally Not-Hany ing Albuterol Sulfate HFA 108 (90 Base) MCG/ACT 1 puff as needed Inhalation every 4 hrs Active Crestor 40mg Active EpiPen 2-Victor M 0.3 MG/0.3ML as directed Injection Active Fioricet prn Active NovoLOG 100 UNIT/ML as directed Injection Active Aspir-81 81mg Active Vitamin D 50 MCG (1999) 1 tablet Oral ly Once a day Active Atenolol 75mg Active Nortriptyline HCl 75mg Active Linzess 145 MCG 1 capsule at least 3 0 minutes before the first meal of the day on an empty stomach Orally Once a day for 30 day(s) 06/11/2024 Active Gabapentin 300mg Act bryson PriLOSEC 20mg qd Active Immunizations Vaccine Route Administration Date Status Comme nts Influenza Unknown 06/13/2023 Administered Problems Problem Type SNOMED Code ICD Code Onset Dates Problem Status W/U Status Risk Notes Problem Already on aspirin (233068994) Long-term (current) use of aspirin (V58.66) Active confirmed Problem Colon cancer screening (907665625) Colon cancer screening (V76.51) Active confirmed Problem Feces contents abnormal (084261497) Heme positive stool (792.1) Active confirmed Problem History of adenomatous polyp of colon (423710435) History of adenomatous polyp of colon (V12.72) Active confirmed Problem Nausea (499099020) Nausea (787.02) Active confirmed Vital Signs Temperature 98.6 degrees Fahrenheit 06/11/2024 Blood pressure diastolic 01 mm Hg 06/11/2024 Height 68 in 06/11/2024 Blood pressure systolic 001 mm Hg 06/11/2024 Weight 228 lbs 06/11/2024 BMI 34.66 kg/m2 06/11/2024 Encounters Encounter Location Date Provider Diagnosis [facility] [address] [place] [phone] 06/11/2024 Finn Maravilla Chronic constipation K59.09 ; Encounter for screening for malignant neoplasm of colon Z12.11 and Colon cancer screening Z12.11 [facility] [address] [place] [phone] 07/23/2024 Finn Maravilla [facility] [address] [place] [phone] 06/11/2024 Finn Maravilla Assessments Encounter Date Diagnosis (ICD Code) Assessment Notes Treatment Notes Treatment Clinical Notes Section Notes 06/11/2024 Encounter for screening for malignant neoplasm of colon (ICD-10 - Z12.11) 06/11/2024 Chronic constipation (ICD-10 - K59.09) Let me know results of the cardiac cath. We may need to postpone if you are put on a new blood thinner for a stent. Have [facility] adjust your Insulin pump for the two day prep I will send over a Rx for Linzess, but use Miralax and 2 Metamucil fiber pills with a lot of water twice a day every day 06/11/2024 Colon cancer screening (ICD-10 - Z12.11) Plan Of Treatment Pending Test Test Name Order Date CT COLON DIAGNOSTIC NO CONTRAST 09/07/19 13 Future Test Test Name Order Date COLONOSCOPY 06/07/2012 COLONOSCOPY 06/11/2024 Next Appt Details Provider Name:Finn Maravilla , 10/06/2024 07:30:00 AM, [address] [place] [address] , [place], [place], [phone], Insurance Providers Payer Name Payer Address Payer Phone Subscriber Number Group Number Insured Name Patient Relationship to Insured Coverage Start Date Coverage End Date MEDICARE OF [place] [address] [place] [address] [id number] CHIN BALBUENA Self - patient is the insured 0 [employer] [address] [place] [id number] CHIN BALBUENA Self - patient is the insured Medical (General) History Medical History History ICD Code Hyperlipidema Denies CVA,Lung disease,renal disease RI 2009-cardiac cath with [address]-fine since Colonoscopy 2000 with a tubu lar adenoma removed, and a F/U colonoscopy in 04/2006 neg except for a hyperplastic polyp EGD in 2000-small HH, no Bar rett's esophagus, biopsies negative for celiac disease Diabetes mellitus on diabetic pump RI > 10 years ago -2 stents in RCA---[facility] Normal PFT's IDDM--on a pump Tachycardia 2 negative colonoscopies in 2012--could not enter cecum Surgical History Surgery Date(Month/Year) breast reduction surgery cholecystectomy appendectomy tubal ligation plantar fascitis with surgery on right f oot right carpal tunnel right foot with pinning of toes
--- OUTSIDE RECORDS SUMMARY | 2024-08-12 08:01 | XMS_ITS | Patient Health Record ---
Author Organization [facility] Address [address] [place] [address] Care Team Providers Care Hydraulic Specialist Name Role Phone Edward Geronimo MD Primary Care Provider Sis Jay Unavailable [phone] Allergies Allergen (clinical drug ingredient) Drug/Non Drug Allergy documented on EMR Reaction Allergy Type Onset Date Status bee wasp (uncoded) Unknown Allergy A ctive erythromycin Erythromycin Unknown Drug Allergy A ctive Adhesive Unknown Allergy Active morphine Morphine Unknown Drug Allergy Active Results Component Value Reference Range Notes HEMOGLOBIN A1C (GLYCOHEMOGLO BIN) Reviewed date:11/27/2023 09:54:41 AM Interpretation: Performing Lab: Notes/Report: HEMOGLOBIN A1C % (HH) 5.7 HEMOGLOBIN A1C (GLYCOHEMOGLO BIN) Reviewed date:05/07/2024 09:05:54 AM Interpretation: Performing Lab: Notes/Report: HEMOGLOBIN A1C % (HH) 5.7 HEMOGLOBIN A1C (GLYCOHEMOGLO BIN) Reviewed date:07/16/2024 09:43:36 AM Interpretation: Performing Lab: Notes/Report: HEMOGLOBIN A1C % (HH) 6.1 Reason For Referral No Information Medications Medication SIG (Take, Route, Frequency, Duration) Notes Start Date End Date Status OT Refurbishment Needs offloading of plantar hallux, function hallux limitus right foot, reverse Mornon's extension 07/16/2024 Active HumaLOG Active Motrin Active Aspirin Active PriLOSEC Active Rosuvastatin Calcium Active Nortriptyline HCl Ac tive Ozempic Not-Taking EpiPen Active Mounjaro Not-Taking Fioricet Active Augmentin Active dilTIAZem HCl Active rOPINIRole HCl Activ e Compazine Active Tylenol Active Gabapentin Active Extra Depth Orthopedic Shoes (1 Pair) with Customized Heat Molded Multidensity Innersoles (3 Pair) as directed Dx: NIDDM/Polyneuropathy (E11.42), Hammertoe Foot Deformity (M20.41,M20.42), Preulcerative Skin Lesion(s) (L85.1 11/27/2023 Active Immunizations Vaccine Route Administration Date Status Comme nts Influenza Unknown 12/22/2022 Administered Social History Tobacco Use: Social History Observation Description Date Details (start date - stop date) Never Smoker NA - NA Tobacco use other than smoking: Question Answer Notes Are you an other tobacco user? No Tobacco Control (Standard) Question Answer Notes Tobacco use: Nonsmoker AUDIT-C (Standard) Question Answer Notes Did you have a drink containing alcohol in the p ast year? No Points 0 Interpretation Negative Problems Problem Type SNOMED Code ICD Code Onset Dates Problem Status W/U Status Risk Notes Problem Acquired hammer toe of right foot (7249956901800337 ) Other hammer toe(s) (acquired), right foot (M20.41) Active confirmed Problem Acquired hammer toe of left foot (3911231426898376 ) Other hammer toe(s) (acquired), left foot (M20.42) Active confirmed Problem Polyneuropathy due to type 2 diabetes mellitus (151047108) Type 2 diabetes mellitus with diabetic polyneuropathy (E11.42) Active confirmed Problem Neuropathic ulce r of toe of left foot, limited to breakdown of skin (L97.521) Active confirmed Problem Neuropathic ulce r of toe of right foot, limited to breakdown of skin (L97.511) Active confirmed Vital Signs Blood pressure diastolic 70 mm Hg 07/16/2024 Height 5ft8in in 07/16/2024 Blood pressure systolic 120 mm Hg 07/16/2024 Weight 224 lbs 07/16/2024 BMI 34.06 kg/m2 07/16/2024 Encounters Encounter Location Date Provider Diagnosis [facility] [address] [place] [address] 11/27/2023 Sis Loaiza Type 2 diabetes mellitus with diabetic polyneuropathy E11.42 ; Other hammer toe(s) (acquired), left foot M20.42 ; Tinea unguium B35.1 ; Other hammer toe(s) (acquired), right foot M20.41 ; Neuropathic ulcer of toe of right foot, limited to breakdown of skin L97.511 and Neuropathic ulcer of toe of left foot, limited to breakdown of skin L97.[address] [address] 02/12/2024 Sis Loaiza Other hammer toe(s) (acquired), left foot M20.42 ; Other hammer toe(s) (acquired), right foot M20.41 ; Type 2 diabetes mellitus with diabetic polyneuropathy E11.42 and Neuropathic ulcer of toe of right foot, limited to breakdown of skin L97.[address] [address] 05/07/2024 Sis Loaiza Other hammer toe(s) (acquired), left foot M20.42 ; Other hammer toe(s) (acquired), right foot M20.41 ; Type 2 diabetes mellitus with diabetic polyneuropathy E11.42 ; Neuropathic ulcer of toe of right foot, limited to breakdown of skin L97.511 and Xerosis of skin L85.[address] [address] 07/16/2024 Sis Loaiza Other hammer toe(s) (acquired), right foot M20.41 ; Hallux limitus of right foot M20.5X1 ; Other hammer toe(s) (acquired), left foot M20.42 ; Type 2 diabetes mellitus with diabetic polyneuropathy E11.42 ; Neuropathic ulcer of toe of right foot, limited to breakdown of skin L97.511 ; Pain in right foot M79.671 and Tinea unguium B35.[address] [address] 10/05/2023 Sis Loaiza [address] [address] 11/27/2023 Sis Loaiza Assessments Encounter Date Diagnosis (ICD Code) Assessment Notes Treatment Notes Treatment Clinical Notes Section Notes 11/27/2023 Other hammer toe(s) (acquired), left foot (ICD-10 - M20.42) 11/27/2023 Type 2 diabetes mellitus with diabetic polyneuropathy (ICD-10 - E11.42) 02/12/2024 Other hammer toe(s) (acquired), right foot (ICD-10 - M20.41) 02/12/2024 Other hammer toe(s) (acquired), left foot (ICD-10 - M20.42) 05/07/2024 Other hammer toe(s) (acquired), right foot (ICD-10 - M20.41) 05/07/2024 Other hammer toe(s) (acquired), left foot (ICD-10 - M20.42) 07/16/2024 Other hammer toe(s) (acquired), right foot (ICD-10 - M20.41) 07/16/2024 Hallux limitus of right foot (ICD-10 - M20.5X1) 07/16/2024 Other hammer toe(s) (acquired), left foot (ICD-10 - M20.42) 05/07/2024 Type 2 diabetes mellitus with diabetic polyneuropathy (ICD-10 - E11.42) 02/12/2024 Type 2 diabetes mellitus with diabetic polyneuropathy (ICD-10 - E11.42) 11/27/2023 Tinea unguium (ICD-10 - B35.1) 02/12/2024 Neuropathic ulcer of toe of right foot, limited to breakdown of skin (ICD-10 - L97.511) 07/16/2024 Type 2 diabetes mellitus with diabetic polyneuropathy (ICD-10 - E11.42) 11/27/2023 Other hammer toe(s) (acquired), right foot (ICD-10 - M20.41) Patient Educated with: DIABETIC FOOT CARE INSTRUCTIONS. pdf (DIABETIC FOOT CARE INSTRUCTIONS. pdf) 05/07/2024 Neuropathic ulcer of toe of right foot, limited to breakdown of skin (ICD-10 - L97.511) 11/27/2023 Neuropathic ulcer of toe of right foot, limited to breakdown of skin (ICD-10 - L97.511) 07/16/2024 Neuropathic ulcer of toe of right foot, limited to breakdown of skin (ICD-10 - L97.511) 05/07/2024 Xerosis of skin (ICD-10 - L85.3) 11/27/2023 Neuropathic ulcer of toe of left foot, limited to breakdown of skin (ICD-10 - L97.521) 07/16/2024 Pain in right foot (ICD-10 - M79.671) 07/16/2024 Tinea unguium (ICD-10 - B35.1) Plan Of Treatment Pending Test Test Name Order Date X ray : Foot, left 3V 11/27/2023 X ray : Foot, right 3V 11/27/2023 X ray : Foot, right 3V 07/16/2024 Next Appt Details Provider Name:Sis garcia, 10/08/2024 09:15:00 AM, [address] [place] [address], [place], [address], Insurance Providers Payer Name Payer Address Payer Phone Subscriber Number Group Number Insured Name Patient Relationship to Insured Coverage Start Date Coverage End Date Medicare [employer] [address] [place] [address] [id number] Marielle Soria Self - patient is the insured [facility] [address] [place] [address] [phone] [id number] Marielle Soria Self - patient is the insured Medical (General) History Medical History History ICD Code Angina Arthritis Back,Hip,and Knee pain CAD (Cholesterol) Cataracts covid-19 Diabetic Gall bladder problems Glaucoma Headaches/Migraines Heart disease Numbness Poor circulation Reflux ( GERD) Sciatica Measles Mumps Chicken pox Plantar fasciitis Surgical History Surgery Date(Month/Year) Stent breast reduction foot surgery
--- OUTSIDE RECORDS SUMMARY | 2024-08-12 08:02 | XMS_ITS ---
Author Organization [facility] Address [address] [place] [address] Care Team Providers Care Rug Weaver Name Role Phone Edward Geronimo MD Primary Care Provider UnavailFinn Cooper [phone] REASON FOR VISIT Meds and constipation Encounters Encounter Location Date Provider Diagnosis [facility] [address] [place] [address] 06/11/2024 Finn Maravilla Plan Of Treatment Next Appt Details Provider Name:Finn Maravilla , 10/06/2024 07:30:00 AM, [address] [place] [address] , [place], [place], [id number], Progress Notes * CHIN BALBUENAOB:0 1955 (68 yo F)Acc No.[id number]:06/11/2024 Patient:?CHIN BALBUENA :1955???Age:68 Y???Sex:Female Address: [place] [address] * true * Date:? Generated for Printi ana/Suze/eTransmitting on:?08/12/2024 08:01 AM EDT
--- OUTSIDE RECORDS SUMMARY | 2024-08-12 08:02 | XMS_ITS ---
Author Organization [facility] Address [address] [place] [address] Care Team Providers [employer] Developer Name Role Phone Edward Geronimo MD Primary Care Provider Sis Jay Unavailable [phone] Allergies Allergen (clinical drug ingredient) Drug/Non Drug Allergy documented on EMR Reaction Allergy Type Onset Date Status bee wasp (uncoded) Unknown Allergy A ctive erythromycin Erythromycin Unknown Drug Allergy A ctive Adhesive Unknown Allergy Active morphine Morphine Unknown Drug Allergy Active REASON FOR VISIT At Risk Footcare, Toe Irritation, Foot pain Medications Medication SIG (Take, Route, Frequency, Duration) Notes Start Date End Date Status PriLOSEC Active Rosuvastatin Calcium Active Nortriptyline HCl Ac tive EpiPen Active Gabapentin Active Ozempic Not-Taking Mounjaro Not-Taking Augmentin Active HumaLOG Active Aspirin Active Fioricet Active dilTIAZem HCl Active Motrin Active Tylenol Active Extra Depth Orthopedic Shoes (1 Pair) with Customized Heat Molded Multidensity Innersoles (3 Pair) as directed Dx: NIDDM/Polyneuropathy (E11.42), Hammertoe Foot Deformity (M20.41,M20.42), Preulcerative Skin Lesion(s) (L85.1 11/27/2023 Active rOPINIRole HCl Activ e Compazine Active OT Refurbishment Needs offloading of plantar hallux, function hallux limitus right foot, reverse Mornon's extension 07/16/2024 Active Social History Tobacco Use: Social History [...] ast year? No Points 0 Interpretation Negative Vital Signs Height 5ft8in in 07/16/2024 Weight 224 lbs 07/16/2024 BMI 34.06 kg/m2 07/16/2024 Blood pressure systolic 120 mm Hg 07/17/19 25 Blood pressure diastolic 70 mm Hg 025 Encounters Encounter Location Date Provider Diagnosis [facility] [address] [place] [address] 07/16/2024 Sis Loaiza Other hammer toe(s) (acquired), right foot M20.41 ; Hallux limitus of right foot M20.5X1 ; Other hammer toe(s) (acquired), left foot M20.42 ; Type 2 diabetes mellitus with diabetic polyneuropathy E11.42 ; Neuropathic ulcer of toe of right foot, limited to breakdown of skin L97.511 ; Pain in right foot M79.671 and Tinea unguium B35.1 Assessments Encounter Date Diagnosis (ICD Code) Assessment Notes Treatment Notes Treatment Clinical Notes Section Notes 07/16/2024 Other hammer toe(s) (acquired), right foot (ICD-10 - M20.41) 07/16/2024 Hallux limitus of right foot (ICD-10 - M20.5X1) 07/16/2024 Other hammer toe(s) (acquired), left foot (ICD-10 - M20.42) 07/16/2024 Type 2 diabetes mellitus with diabetic polyneuropathy (ICD-10 - E11.42) 07/16/2024 Neuropathic ulcer of toe of right foot, limited to breakdown of skin (ICD-10 - L97.511) 07/16/2024 Pain in right foot (ICD-10 - M79.671) 07/16/2024 Tinea unguium (ICD-10 - B35.1) Plan Of Treatment Medication Medication Name Sig Start Date Stop Date Notes OT Refurbishment Needs offloading of plantar hallux, function hallux limitus right foot, reverse Mornon's extension 07/16/2024 Pending Test Test Name Order Date X ray : Foot, right 3V 07/16/2024 Next Appt Details Follow Up: 2 Months, Reason: Provider Name:Sis Garcia Sana garcia, 10/08/2024 09:15:00 AM, [address] [place], [address], Procedure Notes * Category Sub-Category Detail Notes Debride Nail 6-10 Nail debridement Due to the cl inical pathology outlined in the exam findings, performance of this nail treatment is medically necessary as its management by an unskilled/untrained nonprofessional would put this patients foot and overall health at risk. Therefore, debridement to affected nail(s), as described in exam ( TA, T1, T2, T3, T4, T5, T6, T7, T8, T9, ), was performed exclusively by the physician of record to reduce/remove overall nail length, girth, thickness, subungual debris, and necrotic tissue, by manual and/or electrical means through the use of a nail nipper and/or dremel-type grinder machine setter, to a more viable healthy nail plate or bed tissue 6-10 nails in total. Silver nitrate was used for any petechial bleeding as necessary. Definitive antifungal treatment options, both pharmaceutical and surgical, have been reviewed and discussed with the patient. The patient solely prefers the use of intermittent/as needed professional debridement services for their nail condition and understands the need for additional periodic treatments to maintain effectiveness in symptomatic relief - 29885 Debride skin< 25 sq cm Open wound [...] to presence of NEUROPATHY. Post debridement measurements: 5 mm x 5 mm x 2 mm. Character of the wound post debridement is stable (27997), The patient was instructed to change dressings according to orders or PRN saturation, leaks, The patient is to cont the local wound care as directed till condition is completely healed, The patient is to apply Antibiotic Oint. to the wound and cover with a DSD Keratoma Treatment Parring or Cutting o f Benign Hyperkeratotic Lesion(s) (-57) More than 4 Lesions - Due to the at risk nature of the patients medical condition as documented in the exam findings, performance of this keratoderma treatment is medically necessary as its management by an unskilled/untrained nonprofessional would put this patients foot and overall health at risk. Therefore, the benign hyperkeratotic lesions, (5) in total, locations as stated and described in the exam ( SUB MTH (s), 5 B/L,, Plantar Heel(s),B/L,Plantar,IPJ,T5 ), were pared, and/or cut utilizing a sterile 15 blade, tissue nippers, and/or power dremel instrumentation by the physician of record - 99485 Progress Notes * Marielle BALBUENA MDOB:[birth year] (68 yo F)Acc No.[id number]:07/16/2024 Progress Note Patient:?Marielle BALBUENA Provider:?Sis Loaiza DPM :1955???Age:68 Y???Sex:Female D ate:07/16/2024 Address:[address] [place], [place] [id number] Pcp:Edward Geronimo MD Subjective: * Chief Complaints: * ???At Risk FootcareToe Irrit ationFoot pain * HPI: ???At Risk footcare:?Pt States Last PCP Visit:?Date?02/13/2024 ???Toe pain:?Location:?Bottom, Great toe, Right foot.?Duration:?several years.?Course:?worse, recurrent.?Aggravated by:?shoes, any pressure, standing/walking.?Treatments:?Rx shoes, inserts, rest/alter normal daily activity.?Skin problems:?Treatments:?Topical abx, debridement.? * ROS:?General/Constitutional:?Nausea?admits.?Vomiting?admits.?Hunger Thirst?denies.?Loss appetite?denies.?Chills?denies.?Fatigue?admits.?Fever?denies.?Night Sweats?denies.?Unexplained weight loss?denies.?Unexplained weight gain?denies.?HEENTM:?Dentures?denies.?Dizziness?denies.?Glasses/contacts?admits.?Retinopathy?den ies.?Blurred/double vision?denies.?TMJ?denies.?Discharge/drainage?denies.?Implants?denies.?Sore throat?denies.?Dental implants?denies.?Hard of hearing ?denies.?Difficulty chewing/swallowing/speaking?denies.?Nose bleeds?denies.?Sore mouth?denies.?Respiratory:?On O xygen?denies.?Pneumonia/pleurisy?denies.?Bronchitis?denies.?Emphysema?denies.?Co ughing?denies.?Cough blood?denies.?Shortness of breath?denies.?Wheezing?denies.?Cardiovascular:?Pacemaker?denies.?MVP?denies.?WPW?denies.?CHF?denies.?Heart attack?denies.?Septal defect?denies.?Rapid beat?denies.?Chest pain ?admits.?Atrial Fib.?denies.?Murmur/Palpitations?denies.?Gastrointestinal:?Hemorrhoids?denies.?Stomach/Abdominal pain?denies.?Dark blood stool?denies.?Irritable bowel ?denies.?Constipation?admits.?Diarrhea?denies.?Hematology:?Swelling?denies.?Clots?denies.?Varicose Veins?admits.?Bruising?denies.?Bleeding problem?denies.?Genitourinary:?Blood urine?denies.?Frequent/Painfu/urination/bladder control?denies.?Kidney stones?denies.?Infection (UTI)?denies.?Nephropathy?denies.?sex trans dis (STD)?denies.?Prostate?denies.?Musculoskeletal:?Hammertoes?admits.?Bunions?denies.?Back Pain?admits.?Muscle Cramps/ Resting?denies.?Muscle cramps / walking?denies.?Generalized aches and pains?admits.?Weakness?denies.?Integ.:?Wylie?denies.?Scars?denies.?Corns/calluses?admits.?Ingrown nails?admits.?Painful nails?denies.?Open Sores?admits.?Rashes?denies.?Neurologic:?Difficulty sleeping?denies.?Brain disorder?denies.?Numbness?admits.?Balance t rouble?denies.?Confusion?denies.?Fainting/blackouts?denies.?Tingling?admits.?Dez mors?denies.? * Medical History:? * Surgical History:?Stent [facility] reduction foot surgery * Hospitalization/Major Diagno stic Procedure:?Denies Past Hospitalization * Family History:?Mother: dece ased, cancer.?Father: , arthritis, diabetes, stroke, poor circulation.?Siblings: heart attack, high blood pressure.? * Social History:?Tobacco Use:?Tobacco use other than smoking?Are you an other tobacco user??No ?Tobacco Control (Standard)?Tobacco use:?Nonsmoker ???Drugs/Alcohol:?Drugs?Have you used drugs other than those for medical reasons in the past 12 months??Yes ?Marijuana??Yes gummies for sleep ???Miscellaneous:?Caffeine: yes, 2-3 cups per day tea. ?Children: yes, 2. ?Exercise: yes, quilring, sewing crafts, cooking, baby sit. ?Marital status: . 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 ???Drug/Alcohol:?AUDIT-C (Standard)?Did you have a drink containing alcohol in the past year??No ?Points?0 ?Interpretation?Negative * Medications:?TakingAugmentin HumaLOG Aspirin Gabapentin Nortriptyline HCl EpiPen PriLOSEC Rosuvastatin Calcium rOPINIRole HCl Compazine Fioricet dilTIAZem HCl Motrin Tylenol Extra Depth Orthopedic Shoes (1 Pair) with Customized Heat Molded Multidensity Innersoles (3 Pair) as directed Dx: NIDDM/Polyneuropathy (E11.42), Hammertoe Foot Deformity (M20.41,M20.42), Preulcerative Skin Lesion(s) (L85.1 Taking Augmentin Taking HumaLOG Taking Aspirin Taking Gabapentin Taking Nortriptyline HCl Taking EpiPen Taking PriLOSEC Taking Rosuvastatin Calcium Taking rOPINIRole HCl Taking Compazine Taking Fioricet Taking dilTIAZem HCl Taking Motrin Taking Tylenol Taking Extra Depth Orthopedic Shoes (1 Pair) with Customized Heat Molded Multidensity Innersoles (3 Pair) as directed Dx: NIDDM/Polyneuropathy (E11.42), Hammertoe Foot Deformity (M20.41,M20.42), Preulcerative Skin Lesion(s) (L85.1 Not- Taking/PRNOzempic Mounjaro Medication List reviewed and reconciled with the patientNot-Taking/PRN Ozempic Not-Taking/PRN Mounjaro Medication List reviewed and reconciled with the patient * Allergies:?ErythromycinMorph ineAdhesivebee waspyes[Allergies Verified] Objective: * Vitals:?Ht:5ft8in, Wt:224, B SC:34.06, Shoe size:9, BP:120/70mm Hg, BS:111, Ht- cm: 172.72 cm, Wt-k.61 kg. * ???Past Orders: ???Lab:HEMOGLOBIN A1C (GLYCO HEMOGLOBIN) (Order Date - 03/24/2024) (Collection Date & Time - 07/16/2024 09:43 AM) ? Value Reference Range ?HEMOGLOBIN A1C % (HH) 6.1 * Examination: ???Ophthalmology Referral: ?DIABETES EYE EXAM?Procedure Performed:?Yes ?Date of Exam Performed?03/24/2024 ?Diabetic Retinopathy Screening:?Yes ?Retinal Screening Performed:?Yes ?Findings of Diabetic Eye Exam:?no retinopathy?Neurological: ?SENSORY:? Neurological exam demonstrates, reduced light touch sensation, reduced sharp/dull pin prick discrimination , B/L, 5.07 monofilament test performed at plantar aspects of 5 varied sites per foot shows sensation, reduced , B/L.?Dermatologic: ?SKIN FINDINGS:? Skin exam reveals Keratotic lesion(s) located at SUB MTH (s), 5 B/L,, Plantar Heel(s),B/L,Plantar,IPJ,T5.?ULCER:?LOCATION plantar proximal ?T5? SIZE, 5 mm X 4 mm X 2mm, BASE, granular, RIM, hyperkeratotic, UNDERMINING, absent, TRACKING, Full thickness breakdown of skin, DRAINAGE, serosanguineous, mild, NECROTIC TISSUE, loosely-adherent, yellow slough, MALODOR, absent, CALOR, absent, ERYTHEMA, absent, PAIN ON PALPATION, present.?Vascular: ?DP PULSES (B):?3/4, B/L.?PT PULSES (B):?3/4, B/L.?CAPILLARY FILL TIME:?immediate, all digits, B/L.?TROPHIC CONDITION-TEXTURE/ELASTICITY/TURGOR/HAIR GROWTH (B):?sparce hair growth.?TEMPERTURE GRADIENT (C):?normal, warm to cool, proximal to distal, B/L, B/L.?PIGMENTATION:?normal, B/L.?Orthopedic: ?MUSCLE STRENGTH:?5/5 all groups in a symmetrical fashion, B/L.?BUNION:?RIGHT, Limited 1st MPJ Dorsal ROM.?DIGITAL DEFORMITIES:?Digital contracture, PIPJ, 2-5 B/L, incompl-reducible to push-up test, no over, nor underlapping, with evidence of shoe producing skin irritation Reveals pain/swelling/redness/enlargement of Plantar IPJ right hallux.?FOOTWEAR:?good condition, exhibit proper fit and accommodation for pedal deformities. OT were inspected and noted to be worn, but in good condition , but not giving proper support at the present time?.?General Examination: ?GENERAL APPEARANCE:?Reveals a pleasant, alert, well nourished, well- developed, well hydrated individual, who demonstrates proper attention to hygiene/body habitus, and is in no acute distress, Pt serves as own historian for office visit today.?ORIENTED:?person, place, and time.?FOOT EXAM:?Lower Extremity Neurological Exam performed:?Yes ?Visual exam of foot performed:?Yes ?Date?07/16/2024 ?Footwear Evaluation?Footwear Evaluation performed:?Yes?X-Rays - IMAGING REPORT: ?Clinical Indication(s):? Evaluate Biomechanical Deformity.?Views:?AP, LAT, LO, LAT RAISED HALLUX, RIGHTTaken by trainedPodiatric Bituminous Paving Machine Operator (EF ).?Findings:?normal bone and soft tissue density consistent for patients age and sex.?HAV:?there is asymmetrical narrowing of the 1st MPJ joint space, there is increased density of the 1st MPJ with asymmetrical joint space narrowing, there is squaring of the 1st MTH.?Fracture:?Negative fractures identified.?Nails: ?NAILS are:?Elongated, overgrown, dystrophic, lytic, greater than 3mm thick, discolored and friable with crumbly malodorous subungual debris, with pain on palpation, TA, T1, T2, T3, T4, T5, T6, T7, T8, T9.? Assessment: * Assessment: 1.?Other hammer toe(s) (acqu ired), right foot - M20.41???Specify :Chronic problem, Worse (4)???2.?Hallux limitus of right foot - M20.5X1 (Primary)???Specify :Chronic problem, Worse (4)???3.?Other hammer toe(s) (acquired), left foot - M20.42???Specify :Chronic problem???4.?Type 2 diabetes mellitus with diabetic polyneuropathy - E11.42???5.?Neuropathic ulcer of toe of right foot, limited to breakdown of skin - L97.511???6.?Pain in right foot - M79.671???7.?Tinea unguium - B35.1??? Plan: * Treatment: 2.?Pain in right foot?Imaging: X ray : Foot, right 3V * Procedures:?Debride Nail 6-10:?Nail debridement?Due to the clinical pathology outlined in the exam findings, performance of this nail treatment is medically necessary as its management by an unskilled/untrained nonprofessional would put this patients foot and overall health at risk. Therefore, debridement to affected nail(s), as described in exam ( TA, T1, T2, T3, T4, T5, T6, T7, T8, T9, ), was performed exclusively by the physician of record to reduce/remove overall nail length, girth, thickness, subungual debris, and necrotic tissue, by manual and/or electrical means through the use of a nail nipper and/or dremel-type grinder machine setter, to a more viable healthy nail plate or bed tissue 6- 10 nails in total. Silver nitrate was used for any petechial bleeding as necessary. Definitive antifungal treatment options, both pharmaceutical and surgical, have been reviewed and discussed with the patient. The patient solely prefers the use of intermittent/as needed professional debridement services for their nail condition and understands the need for additional periodic treatments to maintain effectiveness in symptomatic relief - 72627.?Debride skin< 25 sq cm:?Open wound?NEUROPATHY: Physician of [...] to presence of NEUROPATHY. Post debridement measurements: 5 mm x 5 mm x 2 mm. Character of the wound post debridement is stable (76891), The patient was instructed to change dressings according to orders or PRN saturation, leaks, The patient is to cont the local wound care as directed till condition is completely healed, The patient is to apply Antibiotic Oint. to the wound and cover with a DSD.?Keratoma Treatment:?Parring or Cutting of Benign Hyperkeratotic Lesion(s)?(-57) More than 4 Lesions - Due to the at risk nature of the patients medical condition as documented in the exam findings, performance of this keratoderma treatment is medically necessary as its management by an unskilled/untrained nonprofessional would put this patients foot and overall health at risk. Therefore, the benign hyperkeratotic lesions, (5) in total, locations as stated and described in the exam (??SUB MTH (s), 5 B/L,,?Plantar Heel(s),B/L,Plantar,IPJ,T5?), were pared, and/or cut utilizing a sterile 15 blade, tissue nippers, and/or power dremel instrumentation by the physician of record - 01249.? * Procedure Codes:?96286 ACTIV E WOUND CARE/20 CM OR <, Modifiers: XS 34932 X-RAY EXAM OF RIGHT FOOT 3V, Modifiers: 26 , [id number] DEBRIDE NAIL, 6 OR MORE, Modifiers: XS 88734 TRIM SKIN LESIONS, OVER 4, Modifiers: XS * Preventive Medicine:? ??Counseling:?Discussion:?-14: Office or other outpatient visit for the evaluation and management of an established patient, which required a medically appropriate history and/or examination and MODERATE level of DECISION MAKING for: 1 OR MORE CHRONIC PROBLEM(S) THATS WORSENING, 2 STABLE CHRONIC PROBLEMS, A NEWLY DIAGNOSED PROBLEM WITH UNCERTAIN PROGNOSIS, AN ACUTE COMPLICATED INJURY WITH MULTIPLE TREATMENT OPTIONS, OR AN ACUTE PROBLEM WITH ACCOMPANYING SYSTEMIC SYMPTOMS, THAT POSE(S) A MODERATE RISK OF MORBIDITY. THIS CONDITION MAY ALSO INCLUDE RX DRUG MANAGEMENT, OR A DECISON FOR MINOR SURGERY. The visit on the day of the [...] encouraged the patient to call the office.?Digital Treatment:?HV - I explained to the patient the risks/benefits of all the different treatment options for their pain including: No treatment at all, Rest, Ice, New/supportive/wider/deeper Shoe gear, Digital Padding/Strapping/Taping/Bracing/Gel protective sleeves, Foot/Ankle AFO Bracing, [...] were discussed and the patients questions re: shoe gear, padding, custom vs prefabricated inserts, activity level, and consistency in home treatment regimens for optimal success were answered to their verbally confirmed satisfaction.?Discussion for Bunion sx:?Several different types of Bunion surgeries were discussed with the patient, including, but not limited to: Discussed surgical options including a Modified Gonzalez/Cheilectomy, joint replacement and joint fusion. Discussed risks and benefits of the above mentioned procedures and their recovery times., We discussed the risks of having surgery (described below) vs not having surgery (persistent pain, deformity, risk for skin ulceration/infection, loss of toe) as well as the potential surgical complications including, but not limited to: pain, swelling, bleeding, scarring, numbness, infection, delayed/non healing, floppy/unstable/shorthened toe, recurrence, failure of the procedure, overcorrection leading to plantarflexed/downward/upward positioned toe, recurrence, need for further surgery, as well as the possibility for loss of the toe itself. We discussed the use of IV/Local regional anesthesia, and the usual post-op course for healing. No guarentees were given. The patient verbally indicated a full understanding of the above conversation, and any other of their questions were answered to their satisfaction.?Orthotics:?I explained to the patient the benefits of OT use. I explained that orthoses are medically necessary to decrease the foot pain through proper mechanical control, support of their foot, cushion the forefoot by supplementing the soft tissue, possibly delay of the progression of the bunion deformity, possibly prevent surgery, Rx OT refurbishment.?Shoe Gear Counseling:?A thorough inspection of the patients Rxed shoegear and inserts was performed and findings communicated. We reviewed the many important medical advantages for adhering to regularly wearing these shoe and insert accomidative devices daily as well as reviewed the fact that a failure in accepting these recommedations may be deleterious, unable to prevent, and disadvantagely result in, many pedal complications such as skin irritation, skin ulceration, infection, and even loss of toe/foot/leg/or even their life. Time was also spent reviewing the proper footcare techniques including daily skin moisturization, daily foot inspection for any interruption in skin integrity, open lesions, or sign of infection such as redness/malodor/drainage/swelling as well as daily shoe inspection for the presence of internal foreign bodies and shoe as well as insert wear. Patient questions re: shoes, inserts, and self foot inspections were answered to their satisfaction as the patient verbally confirmed a full understanding of the above information, The patient and I reviewed the types of shoes they should be wearing. My recommendation included obtaining a well-fitted shoe with a good supportive, non-foldable nor twistable sole, plenty of toe/room for the forefoot, and proper arch support. Based on todays examination, I recommended the patient look for new shoes, by having their feet professionally measured. We discussed that generally the best time of the day for a shoe fitting is the afternoon. Different shoes types and brands to best match the patients occupation and vocation were discussed. Specific brand selection will be up to the patient, their individual foot condition/deformities, and fit. The patient and I reviewed the standard new shoe break in period by wearing them for a few hours a day while checking for redness or sores as wear time is increased. The patient verbally confirmed to understanding the information discussed.?Ulcer:?A detailed plan of care was reviewed with the patient. We emphasized the fact that the patient takes on an active participating role in the treatment process and emphasized to them that they are an included, valued, and important member of the wound healing team in order to reach an expedient successful outcome. The patient agreed to follow their medically recommended diet while increasing their protein intake if safely able to do so, maintain proper bodily hydration, abide by weight-bearing restrictions at all times, quit all current smoking habits if any, and diligently follow any/all dressing change instructions. It was clearly made known to the patient that if they fail to do their part, they will likely extend their course of treatment as well as possibly increase their risk of adverse events including amputation. The patient was instructed on importance of proper wound care consisting of pressure reduction, and proper maintenance of a moist wound environment. The patient is to cleanse the wound with warm soapy water/peroxide/saline, or betadine BID based on product availability. The patient is to apply ( NEOSPORIN, POLYSPORIN, or TRIPLE OINTMENT, ) Antibiotic to the wound and cover with a DSD as directed. The patient was instructed to change dressings according to orders, or PRN saturation, leaks. The patient was instructed to monitor and report any signs or symptoms of infection or any untoward reactions. Precautions Taken: Offloading/Pressure reduction via rest/ limited activity to essential to daily life only, cane/ crutches/ walker/ knee scooter/ wheelchair, shoe modification, accommodative padding, sharp debridement, and take/apply medication as directed. THE SHORT-TERM GOALS of wound care include, prevent hospitalization, debridement to remove devitalized tissue, minimize risk for soft tissue or bone infection, initiate and promote the wound healing process, and prevent further complication such as loss of limb or life were discussed/reviewed. THE LONG-TERM GOALS of wound care include, complete wound closure if possible, facilitate patient comfort, prevent recurrence, and return the patient to their pre-ulcerative state of activity and lifestyle if possible, Debridement frequency as indicated.?X-rays:?Discussed and reviewed the X-rays with the patient. We discussed how the findings relate to the patients symptoms/complaints. Answered any and all questions..? ??Screening/Special Tests:?Fall Risk?Assessment:?Performed ?Screening:?No falls in the past year ?FALLS: Screening for Future Fall Risk?Have you had two or more falls in the past year??No ?Have you had any falls with injury in the past year??No * Follow Up:?2 Months * Images: * Sign off status: Completed true * Provider:?Sis Loaiza DPM Date:? Generated for Ayah perez/Suze/Elif on:?08/12/2024 08:01 AM EDT History and Physical Notes * HPI (History of Present Illness) Category Sub-Category Detail Notes Category Not es Toe pain Location: Bottom, Great toe, Right rae t Duration: several years Course: worse, recurrent Aggravated by: shoes, any pressure, standing/walking Treatments: Rx shoes, inserts, r est/alter normal daily activity Skin problems Treatments: Topical abx, debridement At Risk footcare Pt States Last PCP Visit: Date: Examination Category Sub-Category Detail Notes Category Not es Neurological SENSORY: Neurological exa m demonstrates, reduced light touch sensation, reduced sharp/dull pin prick discrimination , B/L, 5.07 monofilament test performed at plantar aspects of 5 varied sites per foot shows sensation, reduced , B/L Dermatologic SKIN FINDINGS: Skin exam reveal s Keratotic lesion(s) located at SUB MTH (s), 5 B/L,, Plantar Heel(s),B/L,Plantar,IPJ,T5 ULCER: LOCATION plantar pro ximal T5 SIZE, 5 mm X 4 mm X 2mm, BASE, granular, RIM, hyperkeratotic, UNDERMINING, absent, TRACKING, Full thickness breakdown of skin, DRAINAGE, serosanguineous, mild, NECROTIC TISSUE, loosely-adherent, yellow slough, MALODOR, absent, CALOR, absent, ERYTHEMA, absent, PAIN ON PALPATION, present Orthopedic BUNION: RIGHT, Limited 1st MPJ Dorsa l ROM FOOTWEAR EVALUATION: good condition, exh ibit proper fit and accommodation for pedal deformities. OT were inspected and noted to be worn, but in good condition , but not giving proper support at the present time DIGITAL DEFORMITIES: Digital contracture , PIPJ, 2-5 [...] Lower Extremity Neurological Exa m performed:: Yes Visual exam of foot performed:: Yes Date: 07/16/2024 ORIENTED: person, place, and t karen Footwear Evaluation Footwear Evaluation performe d:: Yes Ophthalmology Referral DIABETES EYE EXAM Procedure Perform ed:: Yes ?Date of Exam Performed: 03/24/2024 Diabetic Retinopathy Screening:: Yes Retinal Screening Performed:: Yes Findings of Diabetic Eye Exam:: no retin opathy Vascular DP PULSES (B): 3/4, B/L PT PULSES (B): 3/4, B/L CAPILLARY FILL TIME: immediate, all digi ts, B/L TEMPERTURE GRADIENT (C): normal, warm to cool, proximal to distal, B/L, B/L TROPHIC CONDITION-TEXTURE/ELASTICITY/TURGOR/HAIR GROWTH (B): sparce hair growth PIGMENTATION: normal, B/L Nails NAILS are: Elongated, overg rown, dystrophic, lytic, greater than 3mm thick, discolored and friable with crumbly malodorous subungual debris, with pain on palpation, TA, T1, T2, T3, T4, T5, T6, T7, T8, T9 X-Rays - IMAGING REPORT Findings: normal b one and soft tissue density consistent for patients age and sex Fracture: Negative fractures i dentified HAV: there is asymmetrica l narrowing of the 1st MPJ joint space, there is increased density of the 1st MPJ with asymmetrical joint space narrowing, there is squaring of the 1st MTH Views: AP, LAT, LO, LAT QUEZADA SED HALLUX, RIGHT Taken by trained Podiatric Bituminous Paving Machine Operator ( EF ) Clinical Indication(s): Evaluate Biomech anical Deformity
--- OUTSIDE RECORDS SUMMARY | 2024-08-12 08:02 | XMS_ITS ---
Author [facility] Address [address] [place] [address] Care Team Providers Care Soda Column Operator Name Role Phone Edward Geronimo MD Primary Care Provider Sis Jay Unavailable [phone] Allergies Allergen (clinical drug ingredient) Drug/Non Drug Allergy documented on EMR Reaction Allergy Type Onset Date Status bee wasp (uncoded) Unknown Allergy A ctive erythromycin Erythromycin Unknown Drug Allergy A ctive Adhesive Unknown Allergy Active morphine Morphine Unknown Drug Allergy Active REASON FOR VISIT At Risk Footcare, Toe Irritation, Skin problem(s) Medications Medication SIG (Take, Route, Frequency, Duration) Notes Start Date End Date Status Mounjaro Not-Taking Ozempic Not-Taking Extra Depth Orthopedic Shoes (1 Pair) with Customized Heat Molded Multidensity Innersoles (3 Pair) as directed Dx: NIDDM/Polyneuropathy (E11.42), Hammertoe Foot Deformity (M20.41,M20.42), Preulcerative Skin Lesion(s) (L85.1 11/27/2023 Active Tylenol Active HumaLOG Active rOPINIRole HCl Activ e Motrin Active dilTIAZem HCl Active Fioricet Active Compazine Active Rosuvastatin Calcium Active PriLOSEC Active EpiPen Active Nortriptyline HCl Ac tive Gabapentin Active Aspirin Active Social History Tobacco Use: Social History Observation Description Date Details (start date - stop date) Never Smoker NA - NA Tobacco use other than smoking: Question Answer Notes Are you an other tobacco user? No Tobacco Control (Standard) Question Answer Notes Tobacco use: Nonsmoker Vital Signs Height 5ft8in in 05/07/2024 Weight 218 lbs 05/07/2024 BMI 33.14 kg/m2 05/07/2024 Blood pressure systolic 110 mm Hg 05/07/19 25 Blood pressure diastolic 70 mm Hg 025 Encounters Encounter Location Date Provider Diagnosis [facility] [address] [address] 05/07/2024 Sis Loaiza Other hammer toe(s) (acquired), left foot M20.42 ; Other hammer toe(s) (acquired), right foot M20.41 ; Type 2 diabetes mellitus with diabetic polyneuropathy E11.42 ; Neuropathic ulcer of toe of right foot, limited to breakdown of skin L97.511 and Xerosis of skin L85.3 Assessments Encounter Date Diagnosis (ICD Code) Assessment Notes Treatment Notes Treatment Clinical Notes Section Notes 05/07/2024 Other hammer toe(s) (acquired), left foot (ICD-10 - M20.42) 05/07/2024 Other hammer toe(s) (acquired), right foot (ICD-10 - M20.41) 05/07/2024 Type 2 diabetes mellitus with diabetic polyneuropathy (ICD-10 - E11.42) 05/07/2024 Neuropathic ulcer of toe of right foot, limited to breakdown of skin (ICD-10 - L97.511) 05/07/2024 Xerosis of skin (ICD-10 - L85.3) Plan Of Treatment Next Appt Details Follow Up: 2 Months, Reason: Provider Name:Sis garcia, 10/08/2024 09:15:00 AM, [address] [place] [address], [address], Procedure Notes * Category Sub-Category Detail Notes [...] of the wound post debridement is stable (53819), The patient was instructed to change dressings according to orders or PRN saturation, leaks, The patient is to cont the local wound care as directed till condition is completely healed Keratoma Treatment Parring or Cutting o f Benign Hyperkeratotic Lesion(s) (-56) 2-4 Lesions - Due to the at risk nature of the patients medical condition as documented in the exam findings, performance of this keratoderma treatment is medically necessary as its management by an unskilled/untrained nonprofessional would put this patients foot and overall health at risk. Therefore, the benign hyperkeratotic lesions, ( 2) in total, locations as stated and described in the exam ( Sub met 5 B/L ), were pared, and/or cut utilizing a sterile 15 blade, tissue nippers, and/or power dremel instrumentation by the physician of record - 33095 Progress Notes * Marielle BALBUENA MDOB:[birth year] (68 yo F)Acc No.[id number]:05/07/2024 Progress Note Patient:?Marielle BALBUENA Provider:?Sis Loaiza DPM :1955???Age:68 Y???Sex:Female D ate:05/07/2024 [facility] [place] Pcp:Edward Geronimo MD Subjective: * Chief Complaints: * ???At Risk FootcareToe Irrit ationSkin problem(s) * HPI: ???At Risk footcare:?Pt States Last PCP Visit:?Date?02/13/2024 ???Toe pain:?Location:?B/L feet.?Duration:?several years.?Aggravated by:?shoes, any pressure.?Treatments:?Rx shoes.?Skin problems:?Nature:?dryness , scaling.?Location:?B/L .?Duration:?several days.?Course:?worse.? * ROS:?General/Constitutional:?Nausea?admits.?Vomiting?admits.?Hunger Thirst?denies.?Loss appetite?denies.?Chills?denies.?Fatigue?admits.?Fever?denies.?Night Sweats?denies.?Unexplained weight loss?denies.?Unexplained [...] other tobacco user??No ?Tobacco Control (Standard)?Tobacco use:?Nonsmoker * Medications:?TakingHumaLOG A spirin Gabapentin Nortriptyline HCl EpiPen PriLOSEC Rosuvastatin Calcium rOPINIRole HCl Compazine Fioricet dilTIAZem HCl Motrin Tylenol Extra Depth Orthopedic Shoes (1 Pair) with Customized Heat Molded Multidensity Innersoles (3 Pair) as directed Dx: NIDDM/Polyneuropathy (E11.42), Hammertoe Foot Deformity (M20.41,M20.42), Preulcerative Skin Lesion(s) (L85.1 Taking HumaLOG Taking Aspirin Taking Gabapentin Taking Nortriptyline HCl Taking EpiPen Taking PriLOSEC Taking Rosuvastatin Calcium Taking rOPINIRole HCl Taking Compazine Taking Fioricet Taking dilTIAZem HCl Taking Motrin Taking Tylenol Taking Extra Depth Orthopedic Shoes (1 Pair) with Customized Heat Molded Multidensity Innersoles (3 Pair) as directed Dx: NIDDM/Polyneuropathy (E11.42), Hammertoe Foot Deformity (M20.41,M20.42), Preulcerative Skin Lesion(s) (L85.1 Not-Taking/PRNOzempic Mounjaro Medication List reviewed and reconciled with the patientNot-Taking/PRN Ozempic Not-Taking/PRN Mounjaro Medication List reviewed and reconciled with the patient * Allergies:?ErythromycinMorph ineAdhesivebee irvin[Allergies Verified] Objective: * Vitals:?Ht: 5ft8in, Wt:218, BMI:33.14, Shoe size: 9-10, BP:110/70mm Hg, BS: 112, Ht-cm: 172.72 cm, Wt-k.88 kg. * ???Past Orders: ???Lab:HEMOGLOBIN A1C (GLYCO HEMOGLOBIN) (Order Date - 01/22/2024) (Collection Date & Time - 01/22/2024 09:05 AM) ? Value Reference Range ?HEMOGLOBIN A1C % (HH) 5.7 * Examination: ???Ophthalmology Referral: ?DIABETES EYE EXAM?Procedure Performed:?Yes ?Date of Exam Performed?12/23/2023 ?Findings of Diabetic Eye Exam:?no retinopathy?Neurological: ?SENSORY:? Neurological exam demonstrates, reduced light touch sensation, reduced sharp/dull pin prick discrimination , B/L, 5.07 monofilament test performed at plantar aspects of 5 varied sites per foot shows sensation, reduced , B/L.?Dermatologic: ?SKIN FINDINGS:? Skin exam reveals Keratotic lesion(s) located at SUB MTH (s), 5 B/L??Skin shows sign(s) of, dryness, scaling, in a stocking fashion, no fissure(s) present, B/L.?ULCER:?LOCATION plantar proximal ?T5? SIZE,?2 mm X?2 mm [...] to be worn, but in good condition giving proper support at the present time.?General Examination: ?GENERAL APPEARANCE:?Reveals a pleasant, alert, well nourished, well- developed, well hydrated individual, who demonstrates proper attention to hygiene/body habitus, and is in no acute distress, Pt serves as own historian for office visit today.?ORIENTED:?person, place, and time.?FOOT EXAM:?Lower Extremity Neurological Exam performed:?Yes ?Visual exam of foot performed:?Yes ?Date?05/07/2024 ?Footwear Evaluation?Footwear Evaluation performed:?Yes??? Assessment: * Assessment: 1.?Other hammer toe(s) (acqu ired), right foot - M20.41 (Primary)???Specify :Chronic problem???2.?Other hammer toe(s) (acquired), left foot - M20.42???Specify :Chronic problem???3.?Type 2 diabetes mellitus with diabetic polyneuropathy - E11.42???4.?Neuropathic ulcer of toe of right foot, limited to breakdown of skin - L97.511???5.?Xerosis of skin - L85.3???Specify :Acute problem, Uncomplicated??? Plan: * Treatment: * Procedures:?Debride skin< 25 [...] of the wound post debridement is stable (07741), The patient was instructed to change dressings according to orders or PRN saturation, leaks, The patient is to cont the local wound care as directed till condition is completely healed.?Keratoma Treatment:?Parring or Cutting of Benign Hyperkeratotic Lesion(s)?(-56) 2-4 Lesions - Due to the at risk nature of the patients medical condition as documented in the exam findings, performance of this keratoderma treatment is medically necessary as its management by an unskilled/untrained nonprofessional would put this patients foot and overall health at risk. Therefore, the benign hyperkeratotic lesions, ( 2) in total, locations as stated and described in the exam ( Sub met 5 B/L ), were pared, and/or cut utilizing a sterile 15 blade, tissue nippers, and/or power dremel instrumentation by the physician of record - 09355.? * Procedure Codes:?10836 ACTIV E WOUND CARE/20 CM OR <, [...] have encouraged the patient to call the office.?Shoe Gear Counseling:?A thorough inspection of the patients [...] confirmed a full understanding of the above information.?Xerosis:?The patient was counseled on the diagnosis, potential etiologies, and treatment options for their skin condition. We discussed the risks and benefits of each option from performing no treatment, to utilizing OTC topical skin creams/ointments, to utilizing prescription topical creams/ointments, to utilizing customized compounded topical medications and use of nocturnal occlusion with any/all previously detailed therapies. We discussed the advantages and disadvantages of each possible treatment and importance for adherence to all the recommended therapies for optimum success and avoid potential complications such as open sore/infection/possible hospitalization. We discussed the potential effectiveness of each topical preparation as well as each ones possible side effects and/or patient medication interactions. Patient questions re: use, dosage, successful outcomes, and application consistency were reviewed and the patient verbalized that all answers were clearly understood.? ??Screening/Special Tests:?Fall Risk?Assessment:?Performed ?Screening:?No falls in the [...] pain Location: B/L feet Duration: several years Aggravated by: shoes, any pressure Treatments: Rx shoes Skin problems Nature: dryness , scaling Location: B/L Duration: several days Course: worse At Risk footcare Pt States Last PCP [...] lesion(s) located at SUB MTH (s), 5 B/L Skin shows sign(s) of, dryness, scaling, in a stocking fashion, no fissure(s) present, B/L ULCER: LOCATION plantar pro ximal T5 SIZE, 2 mm X 2 mm X 2mm, BASE, granular, RIM, hyperkeratotic, UNDERMINING, absent, TRACKING, Full thickness breakdown of skin, DRAINAGE, serosanguineous, mild, NECROTIC TISSUE, loosely-adherent, yellow slough, MALODOR, absent, CALOR, absent, ERYTHEMA, absent, PAIN ON PALPATION, present Orthopedic FOOTWEAR EVALUATION: good condit ion, exhibit proper fit and accommodation for pedal deformities. OT were inspected and noted to be worn, but in good condition giving proper support at the present time [...] Visual exam of foot performed:: Yes Date: 05/07/2024 ORIENTED: person, place, and t karen Footwear Evaluation Footwear Evaluation performe d:: Yes Ophthalmology Referral DIABETES EYE EXAM Procedure Perform ed:: Yes ?Date of Exam Performed: 12/23/2023 Findings of Diabetic Eye Exam:: no retin opathy Vascular DP PULSES (B): 3/4, B/L PT PULSES (B): 3/4, B/L CAPILLARY FILL TIME: immediate, all digi ts, B/L TEMPERTURE GRADIENT (C): normal, warm to cool, proximal to distal, B/L, B/L TROPHIC CONDITION-TEXTURE/ELASTICITY/TURGOR/HAIR GROWTH (B): sparce hair growth
[2024-08-12 08:10] LABS: Glucose, Whole Blood 126 mg/dL (60-115)
== END 2024-08-12 08:33 | disposition home or self-care (01) ==
LOC: HO.ENCR 07:55
PROVIDERS: PCP Internal Medicine; Visit Provider Nurse Practitioner Adult Health
DX: E11.40 Type 2 diabetes mellitus with diabetic neuropathy, unspecified (principal); Z79.4 Long term (current) use of insulin
CPT/HCPCS: 99214; G2211

== ENCOUNTER → 2024-08-12 07:55 | Outpatient (BNVA) | payer MEDICARE, OTHER, SELFPAY | PROVIDERS: PCP Internal Medicine; Visit Provider Nurse Practitioner Adult Health | DX: E11.40 Type 2 diabetes mellitus with diabetic neuropathy, unspecified (principal); Z79.4 Long term (current) use of insulin | CPT/HCPCS: 82947; 83036; 99212 ==

== ENCOUNTER 2024-08-18 08:21 | Outpatient (REF) | payer MEDICARE, OTHER, SELFPAY ==
--- NOTE | ~2024-08-18 | CT_ITS ---
CLINICAL HISTORY: Z87.891 - Personal history of nicotine dependence CT lung cancer screening (LDCT) Comparison: CT/REG/PA/SR - CT LUNG SCREENING - 08/14/23 09:35 EDT Technique: Axial CT images of the chest using low-dose technique. Referring provider counseled the patient on shared decision-making for LDCT screening. Additional counseling was provided on smoking cessation. Effective radiation dose total: DLP 50.3 mGycm, CTDIvol 1.6 mGy. Findings: Lung: There is a new cluster of nodular foci within the left lower lobe on images 45- 52. Nodules measure up to 7 mm in size (image 47). Multiple additional tiny nodules measuring up to 5 mm in size are without change. The largest nodule is in the right lower lobe on image 117. Coronary artery calcifications: Moderate Limited upper abdomen: Unremarkable. There is a calcification within the left lobe of the thyroid gland without change. Other: None Impression: Category 4A: Suspicious. Recommend three-month follow-up CT. ##L4A ## Category 1: Normal; continue annual screening Category 2: Benign appearance or behavior, continue annual screening Category 3: Probably benign, [address] recommended Category 4A: Suspicious, [address] recommended; may consider PET/CT Category 4B: Suspicious, Additional diagnostics and/or tissue sampling recommended Category 4X: Suspicious, Additional diagnostics and/or tissue sampling recommended Category 0: Recalls (incomplete screen due to Incomplete coverage, Noise, Respiratory motion, Expiration, Obscured by acute abnormality) This document has been electronically signed by: Deisy Lord MD on 08/19/2024 15:05:22
--- OUTSIDE RECORDS SUMMARY | 2024-08-18 08:40 | XMS_ITS ---
Author Organization [facility] Address [address] [place] [address] Care Team Providers Care Tunnel Worker Name Role Phone Edward Geronimo MD Primary Care Provider Sis Jay Unavailable [phone] Allergies Allergen (clinical drug ingredient) Drug/Non Drug [...] 025 Encounters Encounter Location Date Provider Diagnosis [facility] [place] [address] [place] [address] 07/16/2024 Sis Loaiza Other hammer toe(s) (acquired), [...] Garcia Sana garcia, 10/08/2024 09:15:00 AM, [address] [place], [address], Procedure Notes * Category Sub-Category Detail Notes [...] use of a nail nipper and/or dremel-type jewel grinder, to a more viable healthy nail plate [...] to maintain effectiveness in symptomatic relief - 78187 Debride skin< 25 sq cm Open wound [...] of the wound post debridement is stable (36399), The patient was instructed to change dressings [...] instrumentation by the physician of record - 16728 Progress Notes * Marielle BALBUENA MDOB:[birth year] (68 yo F)Acc No.[id number]:07/16/2024 Progress Note Patient:?Marielle BALBUENA Provider:?Sis Loaiza DPM :1955???Age:68 Y???Sex:Female D ate:07/16/2024 Address:[address] [place], [place] [id number] Pcp:Edward Geronimo MD Subjective: * Chief Complaints: [...] waspyes[Allergies Verified] Objective: * Vitals:?Ht:5ft8in, Wt:224, B DE:34.06, Shoe size:9, BP:120/70mm Hg, BS:111, Ht- cm: [...] LO, LAT RAISED HALLUX, RIGHTTaken by trainedPodiatric Process Architect (EF ).?Findings:?normal bone and soft tissue density [...] use of a nail nipper and/or dremel-type jewel grinder, to a more viable healthy nail plate [...] to maintain effectiveness in symptomatic relief - 89394.?Debride skin< 25 sq cm:?Open wound?NEUROPATHY: Physician of [...] of the wound post debridement is stable (51108), The patient was instructed to change dressings [...] instrumentation by the physician of record - 95874.? * Procedure Codes:?87945 ACTIV E WOUND CARE/20 CM OR <, Modifiers: XS 64207 X-RAY EXAM OF RIGHT FOOT 3V, Modifiers: 26 , [id number] DEBRIDE NAIL, 6 OR MORE, Modifiers: XS 92387 TRIM SKIN LESIONS, OVER 4, Modifiers: XS [...] Loaiza DPM Date:? Generated for Ayah perez/Suze/Elif on:?08/18/2024 08:39 AM EDT History and Physical Notes * [...] SED HALLUX, RIGHT Taken by trained Podiatric Process Architect ( EF ) Clinical Indication(s): Evaluate Biomech anical Deformity
--- OUTSIDE RECORDS SUMMARY | 2024-08-18 08:40 | XMS_ITS | Patient Health Record ---
Author Organization [facility] Address [address] [place] [address] Care Team Providers Care Molecular Biology Professor Name Role Phone Edward Geronimo MD Primary Care Provider Sis Jay Unavailable [phone] Allergies Allergen (clinical drug ingredient) Drug/Non Drug [...] Lab: Notes/Report: HEMOGLOBIN A1C % (HH) 6.1 HEMOGLOBIN A1C (GLYCOHEMOGLO BIN) Reviewed date:05/07/2024 09:05:54 AM Interpretation: Performing Lab: Notes/Report: HEMOGLOBIN A1C % (HH) 5.7 Reason For Referral No Information Medications Medication [...] Problem Acquired hammer toe of right foot (0756299295971566 ) Other hammer toe(s) (acquired), right foot (M20.41) Active confirmed Problem Acquired hammer toe of left foot (8878715983019300 ) Other hammer toe(s) (acquired), left foot (M20.42) Active confirmed Problem Polyneuropathy due to type 2 diabetes mellitus (098887510) Type 2 diabetes mellitus with diabetic polyneuropathy [...] 07/16/2024 Encounters Encounter Location Date Provider Diagnosis [facility] [place] [address] [place] [address] 11/27/2023 Sis Loaiza Type 2 diabetes mellitus with diabetic polyneuropathy E11.42 ; Other hammer toe(s) (acquired), left foot M20.42 ; Tinea unguium B35.1 ; Other hammer toe(s) (acquired), right foot M20.41 ; Neuropathic ulcer of toe of right foot, limited to breakdown of skin L97.511 and Neuropathic ulcer of toe of left foot, limited to breakdown of skin L97.[address] [address] 02/12/2024 Sis Loaiza Other hammer toe(s) (acquired), left foot M20.42 ; Other hammer toe(s) (acquired), right foot M20.41 ; Type 2 diabetes mellitus with diabetic polyneuropathy E11.42 and Neuropathic ulcer of toe of right foot, limited to breakdown of skin L97.[address] [address] 05/07/2024 Sis Loaiza Other hammer toe(s) (acquired), left foot M20.42 ; Other hammer toe(s) (acquired), right foot M20.41 ; Type 2 diabetes mellitus with diabetic polyneuropathy E11.42 ; Neuropathic ulcer of toe of right foot, limited to breakdown of skin L97.511 and Xerosis of skin L85.[address] [address] 07/16/2024 Sis Loaiza Other hammer toe(s) (acquired), right foot M20.41 ; Hallux limitus of right foot M20.5X1 ; Other hammer toe(s) (acquired), left foot M20.42 ; Type 2 diabetes mellitus with diabetic polyneuropathy E11.42 ; Neuropathic ulcer of toe of right foot, limited to breakdown of skin L97.511 ; Pain in right foot M79.671 and Tinea unguium B35.[address] [address] 10/05/2023 Sis Loaiza [address] [address] 11/27/2023 Sis Loaiza Assessments Encounter Date Diagnosis [...] Details Provider Name:Sis garcia, 10/08/2024 09:15:00 AM, [address] [place] [address], [place], [address], Insurance Providers Payer Name Payer Address Payer Phone Subscriber Number Group Number Insured Name Patient Relationship to Insured Coverage Start Date Coverage End Date [employer] [address] [place] [address] [id number] Marielle Soria Self - patient is the insured [facility] [address] [place] [address] [id number] Marielle Soria Self - patient is the insured Medical (General) History Medical History History ICD Code Angina Arthritis Back,Hip,and Knee pain CAD (Cholesterol) Cataracts covid-19 Diabetic Gall bladder problems Glaucoma Headaches/Migraines Heart disease Numbness Poor circulation Reflux ( GERD) Sciatica Measles Mumps Chicken pox Plantar fasciitis Surgical History Surgery Date(Month/Year) Stent breast reduction foot surgery
--- OUTSIDE RECORDS SUMMARY | 2024-08-18 08:40 | XMS_ITS ---
Author Organization [facility] Address [address] [place] [address] Care Team Providers Care Soft Hat Binder Name Role Phone Edward eGronimo MD Primary Care Provider Sis Jay Unavailable [phone] Allergies Allergen (clinical drug ingredient) Drug/Non Drug [...] 02/12/2024 Encounters Encounter Location Date Provider Diagnosis [facility] [address] [address] 02/12/2024 Sis Loaiza Other hammer toe(s) (acquired), [...] Provider Name:Sis garcia, 10/08/2024 09:15:00 AM, [address] [place], [address], Procedure Notes * Category Sub-Category Detail Notes [...] of the wound post debridement is stable (77740), The patient was instructed to change dressings [...] 15 blade, tissue nippers, and/or dremel - 69912 Progress Notes * Marielle BALBUENA MDOB:[birth year] (68 yo F)Acc No.[id number]:02/12/2024 Progress Note Patient:?Marielle Balbuena Provider:?Sis Loaiza DPM :1955???Age:68 Y???Sex:Female D ate:02/12/2024 Address:[address] [place], [place] [address] Pcp:Edward Geronimo MD Subjective: * Chief Complaints: [...] of the wound post debridement is stable (32993), The patient was instructed to change dressings according to orders or PRN saturation, leaks, The patient is to cont the local wound care as directed till condition is completely healed.?Keratoma Treatment:?Parring or Cutting of Benign Hyperkeratotic Lesion(s)?(-56) 2-4 Lesions - The Benign hyperkeratotic lesions, as described above were pared, and/or cut utilizing a sterile 15 blade, tissue nippers, and/or dremel - 99770.? * Procedure Codes:?10918 ACTIV E WOUND CARE/20 CM OR <, [...] Loaiza DPM Date:? Generated for Margueritei ana/Suze/eTransmitting on:?08/18/2024 08:39 AM EDT History and Physical [...]
--- OUTSIDE RECORDS SUMMARY | 2024-08-18 08:40 | XMS_ITS ---
Author [facility] Address [address] [place] [address] Care Team Providers Care Receiving Tank Operator Name Role Phone Edward Geronimo MD Primary Care Provider Sis Jay Unavailable [phone] Allergies Allergen (clinical drug ingredient) Drug/Non Drug [...] 025 Encounters Encounter Location Date Provider Diagnosis [facility] [address] [address] 05/07/2024 Sis Loaiza Other hammer toe(s) (acquired), [...] Reason: Provider Name:Sis garcia, 10/08/2024 09:15:00 AM, [address] [place] [address], [address], Procedure Notes * Category Sub-Category Detail Notes [...] of the wound post debridement is stable (32020), The patient was instructed to change dressings [...] instrumentation by the physician of record - 14022 Progress Notes * Marielle BALBUENA MDOB:[birth year] (68 yo F)Acc No.[id number]:05/07/2024 Progress Note Patient:?Marielle BALBUENA Provider:?Sis Loaiza DPM :1955???Age:68 Y???Sex:Female D ate:05/07/2024 [facility] [place] Pcp:Edward Geronimo MD Subjective: * Chief Complaints: [...] of the wound post debridement is stable (50382), The patient was instructed to change dressings [...] instrumentation by the physician of record - 43146.? * Procedure Codes:?87620 ACTIV E WOUND CARE/20 CM OR <, [...]
== END 2024-08-18 08:22 | disposition home or self-care (01) ==
LOC: HO.CT 08:21
PROVIDERS: PCP Internal Medicine; Visit Provider Physician Assistant Medical
DX: Z12.2 Encounter for screening for malignant neoplasm of respiratory organs (principal); Z87.891 Personal history of nicotine dependence
CPT/HCPCS: 71271

== ENCOUNTER → 2024-08-18 08:22 | Outpatient (BNV) | payer MEDICARE, OTHER, SELFPAY | PROVIDERS: PCP Internal Medicine; Visit Provider Radiology Diagnostic Radiology | DX: Z87.891 Personal history of nicotine dependence (principal) | CPT/HCPCS: 71271 ==

== ENCOUNTER 2024-09-01 09:32 | Outpatient (AMB) | payer MEDICARE, OTHER, SELFPAY ==
[2024-09-01 09:09] VITALS: BP 112/68; PULSE 78; TEMP 36.5; O2SAT 99; BMI 34.2
--- NOTE | 2024-09-01 09:09 | MHC.PC.OV ---
Vital Signs 09/01/24 09:09 Height 5 ft 8 in Weight 225 lb BMI 34.2 BP 112/68 Blood Pressure Location Lt brachial Position Sitting Pulse 78 Pulse Source Pulse Oximeter Temp 97.7 F Temp Source Axillary Pulse Oximetry (%) 99 Oxygen Delivery Method Room Air Intake Visit Reasons: Routine - see comments Paving Inspector Required: No Accompanied by: Self / Same As Patient Allergies azithromycin [From ZITHROMAX] Allergy (Unknown, Verified 09/01/24 09:09) RASH bee pollen [BEE STINGS] Allergy (Unknown, Verified 09/01/24 09:09) ANAPHYLAXIS erythromycin base [ERYTHROMYCIN BASE] Allergy (Unknown, Verified 09/01/24 09:09) RASH morphine [MORPHINE] Allergy (Unknown, Verified 09/01/24 09:09) BRADYCARDIA, heart rate slows down neomycin Allergy (Unknown, Verified 09/01/24 09:09) adema bees Allergy (Unknown, Uncoded 08/12/24 07:58) anaphylaxis Taurine Allergy (Unknown, Uncoded 08/12/24 07:58) hives Tobacco use date assessed: 09/01/24 Fall risk assessment: No Falls in past year Last assessed Fall Risk: 09/01/24 Dental Screening Dental Screen Date: 09/01/24 Did you have a dental visit in the last 12 months?: Yes Did you have a dental problem in the last 6 months where you did not have access to dental care?: No [facility] Medical History Obesity History of CT (myocardial infarction) (~2011) Personal history of nicotine dependence Tubular adenoma of colon (~2000) Vitamin D deficiency Hyperlipidemia LDL goal <70 Arthritis Neuropathy CAD (coronary artery disease) Type 2 diabetes mellitus with diabetic neuropathy, unspecified (~2004) Surgical History History of bilateral breast reduction surgery History of tubal ligation History of foot surgery History of laparoscopic cholecystectomy History of heart artery stent History of colonoscopy (~04/09/13) History of appendectomy Family History (Updated 09/01/24 @ 09:49 by Beverley Xiong MA) Father Diabetes mellitus CVD (cardiovascular disease) Mother Oral cancer Brother Diabetes mellitus Social History Household Members: Spouse Housing: House Patient Tobacco Use Status: Former Tobacco user Cigarette Packs Per Day: 1 Years Smoked: 25 e-Cigarette/Vaping Use: Former Use service: No Current occupational status: retired Cognitive needs: No Hearing needs: No Vision needs: Yes (rx glasses) Questionnaire PHQ-9 Over the last 2 weeks, how often have you been bothered by any of the following problems? 1. Little interest or pleasure in doing things: not at all 2. Feeling down, depressed, or hopeless: not at all 3. Trouble falling or staying asleep, or sleeping too much: not at all 4. Feeling tired or having little energy: not at all 5. Poor appetite or overeating: not at all 6. Feeling bad about yourself - or that you are a failure or have let yourself or your family down: not at all 7. Trouble concentrating on things, such as reading the newspaper or watching television: not at all 8. Moving or speaking so slowly that other people could have noticed. Or the opposite - being so fidgety or restless that you have been moving around a lot more than usual: not at all 9. Thoughts that you would be better off or of hurting yourself in some way: not at all Total score: 0 Source: Developed by Drs. Finn Dueñas, Alayna Hill, Matt Rodriguez and colleagues, with an educational juanita from [employer]. Thrive Questionnaire Date Thrive assessed: 09/01/24 I am a: Patient Within the past 12 months, did the food you bought not last and you didn't have the money to get more?: Never true Within the past 12 months, did you worry whether your food would run out before you got money to buy more?: Never true Do you have trouble paying for medicines?: No Do you have trouble getting transportation to medical appointments?: No Do you have trouble paying your heating and electricity bill?: No Do you have trouble taking care of your child, family member or friend?: No Do you have trouble with day-to-day activities such as bathing, preparing meals, shopping, managing finances, etc.?: No Are you currently unemployed and looking for a job?: No Are you interested in more education?: No THRIVE Score: 0 AUDIT C Alcohol Use Questionnaire (AUDIT-C) 1. How often do you have a drink containing alcohol?: Monthly or less 2. How many drinks containing alcohol do you have on a typical day when you are drinking?: 1 or 2 3. How often do you have six or more drinks on one occasion?: Less than monthly Total Score: 2 ALEX-7 AMB Questionnaire ALEX-7 Date ALEX - 7 assessed: 09/01/24 Feeling nervous, anxious, or on edge: 0 = Not at all Not being able to stop or control worryin = Not at all Worrying too much about different things: 0 = Not at all Trouble relaxin = Not at all Being so restless that it is hard to sit still: 0 = Not at all Becoming easily annoyed or irritable: 0 = Not at all Feeling afraid as if something awful might happen: 0 = Not at all Total ALEX-7 score (0-4 normal; 5-9 mild; 10-14 moderate; 15-21 severe): 0 Source: Developed by Drs. Finn Dueñas, Alayna Hill, Matt Rodriguez and colleagues, with an educational juanita from [employer]. Physical exam (Primary Care) Vital Signs: Last Vital Signs Temp 97.7 F 09/01/24 09:09 Pulse 78 09/01/24 09:09 BP 112/68 09/01/24 09:09 Pulse Ox 99 09/01/24 09:09 Oxygen Delivery Method Room Air 09/01/24 09:09 BMI result Body Mass Index 34.2 Tobacco/Smoking Status: Tobacco use Status Tobacco use date assessed 09/01/24 09/01/24 09:11 Patient Tobacco Use Status Former Tobacco user 09/01/24 09:11 e-Cigarette/Vaping Use Former Use 09/01/24 09:11 PHQ-9: PHQ-9 Score PHQ-9: Total score 0 09/01/24 09:11 Thrive Assessment: Date of Thrive Assessment Date Thrive assessed 09/01/24 09/01/24 09:11 Coding Level of Care Code New Pt Level 4 (98937) Complex EM visit Add On G2211 Diagnoses Type 2 diabetes mellitus with diabetic neuropathy, with long-term current use of insulin E11.40; Z79.4 Diabetes mellitus nursing home insulin use: with 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 On an insulin pump. Last A1c is less than 7. up-to-date on the group director appointment (2) Personal history of nicotine dependence: Comment: (onset 15, 1ppd x 40yrs, 40pyh, quit 2011) Code(s): Z87.891 - Personal history of nicotine dependence Category: Medical Plan: Patient has quit smoking. Encouraged her to get the periodic CT surveillance. Plan History of Present Illness The patient is a 68-year-old female presenting with follow-up on her chronic conditions and for preventive care. She reports a history of osteoarthritis in need of hip replacement, moderate emphysema observed in a previous scan, and a nodule on the lung that requires repeated imaging in three months. She confirms having been a smoker in the past but has quit for several years. Despite this, she is followed by a power grader operator. A pulmonary function test done six months ago was noted to be within normal limits. The patient has a history of diabetes mellitus type 2, managed with an insulin pump, with a recent A1c of 6.1, indicating well-controlled diabetes. She experiences significant fatigue, affecting her daily activities such as cooking. Cardiac evaluation, including stress test and cardiac catheterization, revealed two stents that are maintaining good flow. She denies any current chest pain. Recent headaches have been severe, prompting concerns about prescription refills for migraine medications. 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 Recent eye evaluations have confirmed there is no need for intervention at present. The patient's last colonoscopy was over 10 years ago, and a follow-up appointment is scheduled shortly. 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 - Respiratory: Reports history of moderate emphysema. - Cardiovascular: Denies recent chest pain; history of two cardiac stents. - Endocrine: Reports well-controlled diabetes mellitus type 2, A1c at 6.1. - Neurological: Reports history of migraines, recent severe headache episodes. - Visual: Reports mild cataract with bright light sensitivity. - Gastrointestinal: Denies recent issues, scheduled colonoscopy forthcoming. Physical Exam General: Cooperative and healthy appearing Nutritional Appearance: Well nourished Orientation/consciousness: Patient oriented x3 Limitations: No limitations Head: Normal to inspection General: Appearance normal, both eyes and all related structures Neck: Normal visual inspection Chest: Normal palpation of entire chest wall Respiratory: Moderate emphysema noted, follow-up in 3 months for nodule. ormal respiratory effort Neurology: Patient oriented x3, reports fatigue and exhaustion after simple activities. Results - Tests and Diagnostics: - Pulmonary Function Test six months ago noted as normal. - Previous scans show moderate emphysema and nodule on lung, pending further evaluation. Plan 1. Osteoarthritis Of Hip - Plan includes future surgical intervention. 2. Chronic Obstructive Pulmonary Disease Copd - Ongoing monitoring and follow-up planned. 3. Diabetes Mellitus Type 2 - Maintenance of current regimen, additional labs pending. 4. Migraines - Medication refills provided for symptomatic episodes. 5. Cataract - Continued assessment at ophthalmology appointments. 6. Gastrointestinal Surveillance - Scheduled procedure for screening. Discussion Notes During the visit, I discussed with the patient her chronic health concerns, including the need for hip replacement due to osteoarthritis and follow-up care for her respiratory condition with a new imaging plan in three months. We reviewed her control of diabetes, which remains stable, and investigated factors contributing to fatigue, which will include blood work targeting possible anemia or thyroid imbalances. Migraine management was addressed through prescription refills for symptomatic episodes. The patient is aware of the need for routine health maintenance, including an upcoming colonoscopy for colon cancer surveillance. Patient Instructions - Continue current management of diabetes with the insulin pump. - Follow-up imaging for the lung nodule as scheduled. - Take prescribed medication for headaches as needed. - Attend upcoming colonoscopy appointment at [place] with Dr. Maravilla. - Report any new or worsening symptoms promptly. - Undergo proposed blood work to further evaluate fatigue. - Maintain regular eye exams and monitor cataract as needed.
--- OUTSIDE RECORDS SUMMARY | 2024-09-01 09:48 | XMS_ITS ---
Author Organization [facility] Address [address] [place] [address] Care Team Providers Care Extract Operator Name Role Phone Edward Geronimo MD Primary Care Provider UnavailFinn Cooper [phone] REASON FOR VISIT waiting on cardiac clearance note for Encounters Encounter Location Date Provider Diagnosis [facility] [address] [place] [phone] 07/23/2024 Finn Maravilla Plan Of Treatment Next Appt Details Provider Name:Finn Maravilla , 10/06/2024 07:30:00 AM, [address] [place] [address] , [place], [place], [phone], Progress Notes * CHIN BALBUENAOB:0 1955 (68 yo F)Acc No.[id number]:07/23/2024 Patient:?CHIN BALBUENA :1955???Age:68 Y???Sex:Female Address: [place] [address] * true * Date:? Generated for Margueritei ng/Erwing/eTransmitting on:?09/01/2024 09:48 AM EDT
--- OUTSIDE RECORDS SUMMARY | 2024-09-01 09:48 | XMS_ITS | Patient Health Record ---
Author Organization [facility] Address [address] [place] [address] Care Team Providers Care Psychology Associate Name Role Phone Edward Geronimo MD Primary Care Provider Sis Jay Unavailable [phone] Allergies Allergen (clinical drug ingredient) Drug/Non Drug Allergy documented on EMR Reaction Allergy Type Onset Date Status bee wasp (uncoded) Unknown Allergy A ctive erythromycin Erythromycin Unknown Drug Allergy A ctive Adhesive Unknown Allergy Active morphine Morphine Unknown Drug Allergy Active Results Component Value Reference Range Notes HEMOGLOBIN A1C (GLYCOHEMOGLO BIN) Reviewed date:05/07/2024 09:05:54 AM Interpretation: Performing Lab: Notes/Report: HEMOGLOBIN A1C % (HH) 5.7 HEMOGLOBIN A1C (GLYCOHEMOGLO BIN) Reviewed date:07/16/2024 09:43:36 AM Interpretation: Performing Lab: Notes/Report: HEMOGLOBIN A1C % (HH) 6.1 HEMOGLOBIN A1C (GLYCOHEMOGLO BIN) Reviewed date:11/27/2023 09:54:41 [...] Problem Acquired hammer toe of right foot (8414000217790765 ) Other hammer toe(s) (acquired), right foot (M20.41) Active confirmed Problem Acquired hammer toe of left foot (4370650340706322 ) Other hammer toe(s) (acquired), left foot (M20.42) Active confirmed Problem Polyneuropathy due to type 2 diabetes mellitus (588540032) Type 2 diabetes mellitus with diabetic polyneuropathy [...] 07/16/2024 Encounters Encounter Location Date Provider Diagnosis [facility] [place] [address] [place] [address] 11/27/2023 Sis Loaiza Type 2 diabetes mellitus with diabetic polyneuropathy E11.42 ; Other hammer toe(s) (acquired), left foot M20.42 ; Tinea unguium B35.1 ; Other hammer toe(s) (acquired), right foot M20.41 ; Neuropathic ulcer of toe of right foot, limited to breakdown of skin L97.511 and Neuropathic ulcer of toe of left foot, limited to breakdown of skin L97.[address] [address] 02/12/2024 Sis Loaiza Other hammer toe(s) (acquired), left foot M20.42 ; Other hammer toe(s) (acquired), right foot M20.41 ; Type 2 diabetes mellitus with diabetic polyneuropathy E11.42 and Neuropathic ulcer of toe of right foot, limited to breakdown of skin L97.[address] [address] 05/07/2024 Sis Loaiza Other hammer toe(s) (acquired), left foot M20.42 ; Other hammer toe(s) (acquired), right foot M20.41 ; Type 2 diabetes mellitus with diabetic polyneuropathy E11.42 ; Neuropathic ulcer of toe of right foot, limited to breakdown of skin L97.511 and Xerosis of skin L85.[address] [address] 07/16/2024 Sis Loaiza Other hammer toe(s) (acquired), right foot M20.41 ; Hallux limitus of right foot M20.5X1 ; Other hammer toe(s) (acquired), left foot M20.42 ; Type 2 diabetes mellitus with diabetic polyneuropathy E11.42 ; Neuropathic ulcer of toe of right foot, limited to breakdown of skin L97.511 ; Pain in right foot M79.671 and Tinea unguium B35.[address] [address] 10/05/2023 Sis Loaiza [address] [address] 11/27/2023 Sis Loaiza Assessments Encounter Date Diagnosis [...] Details Provider Name:Sis garcia, 10/08/2024 09:15:00 AM, [address] [place] [address], [place], [address], Insurance Providers Payer Name Payer Address Payer Phone Subscriber Number Group Number Insured Name Patient Relationship to Insured Coverage Start Date Coverage End Date Medicare National [employer] [address] [facility] [place] [address] [id number] Marielle Soria Self - patient is the insured [facility] [address] [place] [address] [id number] Marielle Soria Self - patient is the insured Medical (General) History Medical History History ICD Code Angina Arthritis Back,Hip,and Knee pain CAD (Cholesterol) Cataracts covid-19 Diabetic Gall bladder problems Glaucoma Headaches/Migraines Heart disease Numbness Poor circulation Reflux ( GERD) Sciatica Measles Mumps Chicken pox Plantar fasciitis Surgical History Surgery Date(Month/Year) Stent breast reduction foot surgery
--- OUTSIDE RECORDS SUMMARY | 2024-09-01 09:48 | XMS_ITS ---
Author Organization [facility] Address [address] [place] [address] Care Team Providers Care Color Buffer Name Role Phone Edward Geronimo MD Primary Care Provider Finn Troy Unavailable [phone] Allergies Allergen (clinical drug ingredient) Drug/Non Drug [...] 06/11/2024 Encounters Encounter Location Date Provider Diagnosis [facility] [address] [facility] [address] [place] [phone] 06/11/2024 Finn Maravilla Chronic constipation K59.09 ; [...] new blood thinner for a stent. Have Hydroelectric Machinery Mechanic Helper adjust your Insulin pump for the two [...] new blood thinner for a stent. Have Hydroelectric Machinery Mechanic Helper adjust your Insulin pump for the two day prep I will send over a Rx for Linzess, but use Miralax and 2 Metamucil fiber pills with a lot of water twice a day every day Future Test Test Name Order Date COLONOSCOPY 06/11/2024 Next Appt Details Follow Up: prn, Reason: Provider Name:Finn Maravilla , 10/06/2024 07:30:00 AM, [address] [place] [address] , [place], [place], [phone], Progress Notes * CHIN BALBUENAEDOB:0 1955 (68 yo F)Acc No.[id number]:06/11/2024 Progress Notes Patient:?CHIN BALBUENA SHLOMO Provider:?Finn Maravilla MD :1955???Age:68 Y???Sex:Female D ate:06/11/2024 Address:[address] [place], [place] [phone] Pcp:Edward Geronimo MD Subjective: * Chief Complaints: [...] (1 point),?Points?1,?Interpretation?Negative.?Miscellaneous:?Marital status: . 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 ???Nonsmoker x 3yrs; [...] Procedure Codes:?3017F COLOR ECTAL CA SCREEN DOC [id number] TOBACCO [id number] BP SCR NOT PRFRM REC REASON NOS [...] MD Date:? 025 Generated for Ayah perez/Suze/Berkleyitting on:?09/01/2024 09:48 AM EDT
--- OUTSIDE RECORDS SUMMARY | 2024-09-01 09:49 | XMS_ITS ---
Author Organization [facility] Address [address] [facility] [place] [address] Care Team Providers Care Candy Vendor Name Role Phone Edward Geronimo MD Primary Care Provider Sis Jay Unavailable [phone] Allergies Allergen (clinical drug ingredient) Drug/Non Drug [...] 02/12/2024 Encounters Encounter Location Date Provider Diagnosis [facility] [address] [address] 02/12/2024 Sis Loaiza Other hammer toe(s) (acquired), [...] Provider Name:Sis garcia, 10/08/2024 09:15:00 AM, [address] [place], [address], Procedure Notes * Category Sub-Category Detail Notes [...] of the wound post debridement is stable (40039), The patient was instructed to change dressings [...] 15 blade, tissue nippers, and/or dremel - 29184 Progress Notes * Marielle BALBUENA MDOB:[birth year] (68 yo F)Acc No.[id number]:02/12/2024 Progress Note Patient:?Marielle Balbuena Provider:?Sis Loaiza DPM :1955???Age:68 Y???Sex:Female D ate:02/12/2024 Address:[address] [place], [place] [phone] Pcp:Edward Geronimo MD Subjective: * Chief Complaints: [...] of the wound post debridement is stable (50548), The patient was instructed to change dressings according to orders or PRN saturation, leaks, The patient is to cont the local wound care as directed till condition is completely healed.?Keratoma Treatment:?Parring or Cutting of Benign Hyperkeratotic Lesion(s)?(-56) 2-4 Lesions - The Benign hyperkeratotic lesions, as described above were pared, and/or cut utilizing a sterile 15 blade, tissue nippers, and/or dremel - 02191.? * Procedure Codes:?58287 ACTIV E WOUND CARE/20 CM OR <, [...] Loaiza DPM Date:? Generated for Margueritei ana/Suze/eTransmitting on:?09/01/2024 09:48 AM EDT History and Physical Notes * [...]
--- OUTSIDE RECORDS SUMMARY | 2024-09-01 09:49 | XMS_ITS ---
Author Organization [facility] Address [address] [place] [address] Care Team Providers Care Hand Collator Name Role Phone Edward Geronimo MD Primary Care Provider UnavailFinn Cooper [phone] REASON FOR VISIT Meds and constipation Encounters Encounter Location Date Provider Diagnosis [facility] [address] [place] [phone] 06/11/2024 Finn Maravilla Plan Of Treatment Next Appt Details Provider Name:Finn Maravilla , 10/06/2024 07:30:00 AM, [address] [place] [address] , [place], [place], [phone], Progress Notes * CHIN BALBUENAOB:0 1955 (68 yo F)Acc No.[id number]:06/11/2024 Patient:?CHIN BALBUENA :1955???Age:68 Y???Sex:Female Address: [place] [address] * true * Date:? Generated for Printi ng/Faoraliag/eTransmitting on:?09/01/2024 09:48 AM EDT
--- OUTSIDE RECORDS SUMMARY | 2024-09-01 09:49 | XMS_ITS ---
Author Organization [facility] Address [address] [facility] [place] [address] Care Team Providers Care Small Machine Bindery Operator Name Role Phone Edward Geronimo MD Primary Care Provider Sis Jay Unavailable [phone] Allergies Allergen (clinical drug ingredient) Drug/Non Drug [...] 025 Encounters Encounter Location Date Provider Diagnosis [facility] [place] [address] [place] [address] 07/16/2024 Sis Loaiza Other hammer toe(s) (acquired), [...] Garcia Sana garcia, 10/08/2024 09:15:00 AM, [address] [place], [address], Procedure Notes * Category Sub-Category Detail Notes [...] use of a nail nipper and/or dremel-type feed grinder, to a more viable healthy nail [...] to maintain effectiveness in symptomatic relief - 08284 Debride skin< 25 sq cm Open wound [...] of the wound post debridement is stable (66089), The patient was instructed to change dressings [...] instrumentation by the physician of record - 79173 Progress Notes * Marielle BALBUENA MDOB:[birth year] (68 yo F)Acc No.[id number]:07/16/2024 Progress Note Patient:?Marielle BALBUENA Provider:?Sis Loaiza DPM :1955???Age:68 Y???Sex:Female D ate:07/16/2024 Address:[address] [place], [place] [id number] Pcp:Edward Geronimo MD Subjective: * Chief Complaints: [...] waspyes[Allergies Verified] Objective: * Vitals:?Ht:5ft8in, Wt:224, B IN:34.06, Shoe size:9, BP:120/70mm Hg, BS:111, Ht- cm: [...] LO, LAT RAISED HALLUX, RIGHTTaken by trainedPodiatric Front End Developer (EF ).?Findings:?normal bone and soft tissue density [...] use of a nail nipper and/or dremel-type feed grinder, to a more viable healthy nail [...] to maintain effectiveness in symptomatic relief - 21341.?Debride skin< 25 sq cm:?Open wound?NEUROPATHY: Physician of [...] of the wound post debridement is stable (28356), The patient was instructed to change dressings [...] instrumentation by the physician of record - 36941.? * Procedure Codes:?66018 ACTIV E WOUND CARE/20 CM OR <, Modifiers: XS 28205 X-RAY EXAM OF RIGHT FOOT 3V, Modifiers: 26 , [id number] DEBRIDE NAIL, 6 OR MORE, Modifiers: XS 38786 TRIM SKIN LESIONS, OVER 4, Modifiers: XS [...] Loaiza DPM Date:? Generated for Ayah perez/Suze/Elif on:?09/01/2024 09:49 AM EDT History and Physical Notes * [...] SED HALLUX, RIGHT Taken by trained Podiatric Front End Developer ( EF ) Clinical Indication(s): Evaluate Biomech anical Deformity
--- OUTSIDE RECORDS SUMMARY | 2024-09-01 09:49 | XMS_ITS | Patient Health Record ---
Author Organization [facility] Address [address] [place] [address] Care Team Providers Care Supervisor Speech Name Role Phone Edward Geronimo MD Primary Care Provider Finn Troy Unavailable [phone] Allergies Allergen (clinical drug ingredient) Drug/Non Drug [...] Status Risk Notes Problem Already on aspirin (445885439) Long-term (current) use of aspirin (V58.66) Active confirmed Problem Colon cancer screening (323854772) Colon cancer screening (V76.51) Active confirmed Problem Feces contents abnormal (187961421) Heme positive stool (792.1) Active confirmed Problem History of adenomatous polyp of colon (899498816) History of adenomatous polyp of colon (V12.72) Active confirmed Problem Nausea (318124883) Nausea (787.02) Active confirmed Vital Signs Temperature 98.6 degrees Fahrenheit 06/11/2024 Blood pressure diastolic 01 mm Hg 06/11/2024 Height 68 in 06/11/2024 Blood pressure systolic 001 mm Hg 06/11/2024 Weight 228 lbs 06/11/2024 BMI 34.66 kg/m2 06/11/2024 Encounters Encounter Location Date Provider Diagnosis [facility] [address] [place] [address] 06/11/2024 Finn Maravilla Chronic constipation K59.09 ; Encounter for screening for malignant neoplasm of colon Z12.11 and Colon cancer screening Z12.11 [facility] [address] [place] [address] 06/11/2024 Finn Maravilla [facility] [address] [place] [address] 07/23/2024 Finn Maravilla Assessments Encounter Date Diagnosis (ICD Code) Assessment Notes Treatment Notes Treatment Clinical Notes Section Notes 06/11/2024 Encounter for screening for malignant neoplasm of colon (ICD-10 - Z12.11) 06/11/2024 Chronic constipation (ICD-10 - K59.09) Let me know results of the cardiac cath. We may need to postpone if you are put on a new blood thinner for a stent. Have Nurse Monitoring adjust your Insulin pump for the two [...] Provider Name:Finn Maravilla , 10/06/2024 07:30:00 AM, [address] [place] [address] , [place], [place], [phone], Insurance Providers Payer Name Payer Address Payer Phone Subscriber Number Group Number Insured Name Patient Relationship to Insured Coverage Start Date Coverage End Date MEDICARE OF [place] [address] [place] [address] [phone] [id number] CHIN BALBUENA Self - patient is the insured 0 [employer] [address] [place] [address] [id number] CHIN BALBUENA Self - patient is the insured Medical (General) History Medical History History ICD Code Hyperlipidema Denies CVA,Lung disease,renal disease [place] 2009-cardiac cath with [address]-fine since Colonoscopy 2000 with a tubu lar adenoma removed, and a F/U colonoscopy in 04/2006 neg except for a hyperplastic polyp EGD in 2000-small HH, no Bar rett's esophagus, biopsies negative for celiac disease Diabetes mellitus on diabetic pump [place] > 10 years ago -2 stents in RCA---having a cardiac cath week of 06/16/24 at [facility] Normal PFT's IDDM--on a pump Tachycardia 2 negative colonoscopies in 2012--could not enter cecum Surgical History Surgery Date(Month/Year) breast reduction surgery cholecystectomy appendectomy tubal ligation plantar fascitis with surgery on right f oot right carpal tunnel right foot with pinning of toes
--- OUTSIDE RECORDS SUMMARY | 2024-09-01 09:49 | XMS_ITS ---
Author Organization [facility] Address [address] [place] [address] Care Team Providers Care Clinic Lpn Name Role Phone Edward Geronimo MD Primary Care Provider Sis Jay Unavailable [phone] Allergies Allergen (clinical drug ingredient) Drug/Non Drug [...] 025 Encounters Encounter Location Date Provider Diagnosis [facility] [address] [address] 05/07/2024 Sis Loaiza Other hammer toe(s) (acquired), [...] Reason: Provider Name:Sis garcia, 10/08/2024 09:15:00 AM, [address] [place] [address], [address], Procedure Notes * Category Sub-Category Detail Notes [...] of the wound post debridement is stable (15225), The patient was instructed to change dressings [...] instrumentation by the physician of record - 85097 Progress Notes * Marielle BALBUENA MDOB:[birth year] (68 yo F)Acc No.[id number]:05/07/2024 Progress Note Patient:?Marielle BALBUENA Provider:?Sis Loaiza DPM :1955???Age:68 Y???Sex:Female D ate:05/07/2024 [facility] [place] Pcp:Edward Geronimo MD Subjective: * Chief Complaints: [...] of the wound post debridement is stable (39236), The patient was instructed to change dressings [...] instrumentation by the physician of record - 26685.? * Procedure Codes:?02223 ACTIV E WOUND CARE/20 CM OR <, [...] DPM Date:? Generated for Ayah perez/Suze/Elif on:?09/01/2024 09:48 AM EDT History and Physical [...]
== END 2024-09-01 10:00 | disposition home or self-care (01) ==
LOC: HO.HMCHD 09:32
PROVIDERS: PCP Internal Medicine; Visit Provider Internal Medicine
DX: E11.40 Type 2 diabetes mellitus with diabetic neuropathy, unspecified (principal); Z79.4 Long term (current) use of insulin; Z87.891 Personal history of nicotine dependence

== ENCOUNTER → 2024-09-01 09:32 | Outpatient (BNVA) | payer MEDICARE, OTHER, SELFPAY | PROVIDERS: PCP Internal Medicine; Visit Provider Internal Medicine | DX: E11.40 Type 2 diabetes mellitus with diabetic neuropathy, unspecified (principal); Z79.4 Long term (current) use of insulin; Z87.891 Personal history of nicotine dependence | CPT/HCPCS: 99202 ==

== ENCOUNTER 2024-09-08 07:52 | Outpatient (REF) | payer MEDICARE, OTHER, SELFPAY ==
--- OUTSIDE RECORDS SUMMARY | 2024-09-08 07:55 | XMS_ITS ---
Author Organization [facility] Address [address] [place] [address] Care Team Providers Care Beef Cattle Specialist Name Role Phone Edward Geronimo MD Primary Care Provider UnavailFinn Cooper [phone] REASON FOR VISIT waiting on cardiac clearance note for Encounters Encounter Location Date Provider Diagnosis [facility] [address] [place] [address] 07/23/2024 Finn Maravilla Plan Of Treatment Next Appt Details Provider Name:Finn Maravilla , 10/06/2024 07:30:00 AM, [address] [place] [address] , [place], [place], [phone], Progress Notes * CHIN BALBUENAOB:0 1955 (68 yo F)Acc No.[id number]:07/23/2024 Patient:?CHIN BALBUENA :1955???Age:68 Y???Sex:Female Address: [place] [address] * true * Date:? Generated for Margueritei ana/Erwing/eTransmitting on:?09/08/2024 07:54 AM EDT
--- OUTSIDE RECORDS SUMMARY | 2024-09-08 07:55 | XMS_ITS | Patient Health Record ---
Author Organization [facility] Address [address] [place] [address] Care Team Providers Care Structural Ironworker Name Role Phone Edward Geronimo MD Primary Care Provider Finn Troy Unavailable [phone] Allergies Allergen (clinical drug ingredient) Drug/Non Drug Allergy documented on EMR Reaction Allergy Type Onset Date Status morphine Morphine Sulfate Unknown Drug Allergy Active erythromycin Erythromycin Unknown Drug Allergy A ctive amoxicillin / clavulanate Augmentin Unknown Drug Allergy Active bees (uncoded) Unknown Allergy Activ e neomycin Neomycin Unknown Drug Allergy Active azithromycin Zithromax Unknown Drug Allergy Acti ve Talwin Unknown Drug Allergy Active Reason For Referral No Information Medications Medication [...] Status Risk Notes Problem Already on aspirin (784139370) Long-term (current) use of aspirin (V58.66) Active confirmed Problem Colon cancer screening (722162677) Colon cancer screening (V76.51) Active confirmed Problem Feces contents abnormal (332216420) Heme positive stool (792.1) Active confirmed Problem History of adenomatous polyp of colon (635747272) History of adenomatous polyp of colon (V12.72) Active confirmed Problem Nausea (177917290) Nausea (787.02) Active confirmed Vital Signs Temperature 98.6 degrees Fahrenheit 06/11/2024 Blood pressure diastolic 01 mm Hg 06/11/2024 Height 68 in 06/11/2024 Blood pressure systolic 001 mm Hg 06/11/2024 Weight 228 lbs 06/11/2024 BMI 34.66 kg/m2 06/11/2024 Encounters Encounter Location Date Provider Diagnosis [facility] [address] [place] [address] 06/11/2024 Finn Maravilla Chronic constipation K59.09 ; Encounter for screening for malignant neoplasm of colon Z12.11 and Colon cancer screening Z12.11 [facility] [address] [place] [address] 06/11/2024 Finn Maravilla [facility] [address] [place] [address] 07/23/2024 Finn Maravilla Assessments Encounter Date Diagnosis (ICD Code) Assessment Notes Treatment Notes Treatment Clinical Notes Section Notes 06/11/2024 Encounter for screening for malignant neoplasm of colon (ICD-10 - Z12.11) 06/11/2024 Chronic constipation (ICD-10 - K59.09) Let me know results of the cardiac cath. We may need to postpone if you are put on a new blood thinner for a stent. Have Chuck Splitter adjust your Insulin pump for the two [...] Provider Name:Finn Maravilla , 10/06/2024 07:30:00 AM, [address] [place] [address] , [place], [place], [phone], Insurance Providers Payer Name Payer Address Payer Phone Subscriber Number Group Number Insured Name Patient Relationship to Insured Coverage Start Date Coverage End Date MED[place]ARE OF [place] [address] [place] [address] [id number] CHIN BALBUENA Self - patient is the insured 0 [employer] [address] [place] [address] [id number] CHIN BALBUENA Self - patient is the insured Medical (General) History Medical History History ICD Code Hyperlipidema Denies CVA,Lung disease,renal disease [place] 2009-cardiac cath with [address] d-fine since Colonoscopy 2000 with a tubu lar adenoma removed, and a F/U colonoscopy in 04/2006 neg except for a hyperplastic polyp EGD in 2000-small HH, no Bar rett's esophagus, biopsies negative for celiac disease Diabetes mellitus on diabetic pump [place] > 10 years ago -2 stents in RCA---having a cardiac cath week of 06/16/24 at [facility] Normal PFT's IDDM--on a pump Tachycardia 2 negative colonoscopies in 2012--could not enter cecum Surgical History Surgery Date(Month/Year) breast reduction surgery cholecystectomy appendectomy tubal ligation plantar fascitis with surgery on right f oot right carpal tunnel right foot with pinning of toes
--- OUTSIDE RECORDS SUMMARY | 2024-09-08 07:55 | XMS_ITS ---
Author Organization [facility] Address [address] [facility] [place] [address] Care Team Providers Care Maintenance Manager Name Role Phone Edward Geronimo MD Primary Care Provider Sis Jay Unavailable [phone] Allergies Allergen (clinical drug ingredient) Drug/Non Drug [...] 02/12/2024 Encounters Encounter Location Date Provider Diagnosis [facility] [address] [address] 02/12/2024 Sis Loaiza Other hammer toe(s) (acquired), [...] Provider Name:Sis garcia, 10/08/2024 09:15:00 AM, [address] [place], [address], Procedure Notes * Category Sub-Category Detail Notes [...] of the wound post debridement is stable (73572), The patient was instructed to change dressings [...] 15 blade, tissue nippers, and/or dremel - 08339 Progress Notes * Marielle BALBUENA MDOB:[birth year] (68 yo F)Acc No.[id number]:02/12/2024 Progress Note Patient:?Marielle Balbuena Provider:?Sis Loaiza DPM :1955???Age:68 Y???Sex:Female D ate:02/12/2024 Address:[address] [place], [place] [phone] Pcp:Edward Geronimo MD Subjective: * Chief Complaints: [...] of the wound post debridement is stable (15577), The patient was instructed to change dressings according to orders or PRN saturation, leaks, The patient is to cont the local wound care as directed till condition is completely healed.?Keratoma Treatment:?Parring or Cutting of Benign Hyperkeratotic Lesion(s)?(-56) 2-4 Lesions - The Benign hyperkeratotic lesions, as described above were pared, and/or cut utilizing a sterile 15 blade, tissue nippers, and/or dremel - 63450.? * Procedure Codes:?83507 ACTIV E WOUND CARE/20 CM OR <, [...] Loaiza DPM Date:? Generated for Margueritei ana/Suze/eTransmitting on:?09/08/2024 07:55 AM EDT History and Physical Notes * [...]
--- OUTSIDE RECORDS SUMMARY | 2024-09-08 07:55 | XMS_ITS ---
Author Organization [facility] Address [address] [place] [address] Care Team Providers Care Artificial Cherry Maker Name Role Phone Edward Geronimo MD Primary Care Provider UnavailFinn Cooper [phone] REASON FOR VISIT Meds and constipation Encounters Encounter Location Date Provider Diagnosis [facility] [address] [place] [address] 06/11/2024 Finn Maravilla Plan Of Treatment Next Appt Details Provider Name:Finn Maravilla , 10/06/2024 07:30:00 AM, [address] [place] [address] , [place], [place], [phone], Progress Notes * CHIN BALBUENAOB:0 1955 (68 yo F)Acc No.[id number]:06/11/2024 Patient:?CHIN BALBUENA :1955???Age:68 Y???Sex:Female Address: [place] [address] * true * Date:? Generated for Printi ng/Faoraliag/eTransmitting on:?09/08/2024 07:55 AM EDT
--- OUTSIDE RECORDS SUMMARY | 2024-09-08 07:55 | XMS_ITS ---
Author Organization [facility] Address [address] [place] [address] Care Team Providers Care Head Trimmer Name Role Phone Edward Geronimo MD Primary Care Provider Finn Troy [phone] Allergies Allergen (clinical drug ingredient) Drug/Non Drug Allergy documented on EMR Reaction Allergy Type Onset Date Status morphine Morphine Sulfate Unknown Drug Allergy Active erythromycin Erythromycin Unknown Drug Allergy A ctive amoxicillin / clavulanate Augmentin Unknown Drug Allergy Active bees (uncoded) Unknown Allergy Activ e neomycin Neomycin Unknown Drug Allergy Active azithromycin Zithromax Unknown Drug Allergy Acti ve Talwin Unknown Drug Allergy Active REASON FOR VISIT Patient presents today for [...] 06/11/2024 Encounters Encounter Location Date Provider [facility] [address] [facility] [address] [place] [address] 06/11/2024 Finn Maravilla Chronic constipation K59.09 ; [...] new blood thinner for a stent. Have Jawbone Breaker adjust your Insulin pump for the two [...] new blood thinner for a stent. Have Jawbone Breaker adjust your Insulin pump for the two day prep I will send over a Rx for Linzess, but use Miralax and 2 Metamucil fiber pills with a lot of water twice a day every day Future Test Test Name Order Date COLONOSCOPY 06/11/2024 Next Appt Details Follow Up: prn, Reason: Provider Name:Finn Maravilla , 10/06/2024 07:30:00 AM, [address] [place] [address] , [place], [place], [phone], Progress Notes * CHIN BALBUENAEDOB:0 1955 (68 yo F)Acc No.[id number]:06/11/2024 Progress Notes Patient:?CHIN BALBUENA SHLOMO Provider:?Finn Maravilla MD :1955???Age:68 Y???Sex:Female D ate:06/11/2024 Address:[address] [place], [place] [address] Pcp:Edward Geronimo MD Subjective: * Chief Complaints: [...] (1 point),?Points?1,?Interpretation?Negative.?Miscellaneous:?Marital status: . 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 ???Nonsmoker x 3yrs; no [...] Procedure Codes:?3017F COLOR ECTAL CA SCREEN DOC [id number] TOBACCO NON-[id number] BP SCR NOT PRFRM REC REASON NOS [...] MD Date:? 025 Generated for Ayah perez/Suze/Berkleyitting on:?09/08/2024 07:54 AM EDT
--- OUTSIDE RECORDS SUMMARY | 2024-09-08 07:55 | XMS_ITS ---
Author Organization [facility] Address [address] [place] [address] Care Team Providers Care Sql Manager Name Role Phone Edward Geronimo MD Primary Care Provider Sis Jay Unavailable [phone] Allergies Allergen (clinical drug ingredient) Drug/Non Drug [...] Encounters Encounter Location Date Provider Diagnosis [facility] [address] [address] 05/07/2024 Sis Loaiza Other hammer toe(s) (acquired), [...] Reason: Provider Name:Sis garcia, 10/08/2024 09:15:00 AM, [address] [place] [address], [address], Procedure Notes * Category Sub-Category Detail Notes [...] of the wound post debridement is stable (09972), The patient was instructed to change dressings [...] instrumentation by the physician of record - 43835 Progress Notes * Marielle BALBUENA MDOB:[birth year] (68 yo F)Acc No.[id number]:05/07/2024 Progress Note Patient:?Marielle BALBUENA Provider:?Sis Loaiza DPM :1955???Age:68 Y???Sex:Female D ate:05/07/2024 [facility] [place] Pcp:Edward Geronimo MD Subjective: * Chief Complaints: [...] of the wound post debridement is stable (30589), The patient was instructed to change dressings [...] instrumentation by the physician of record - 87918.? * Procedure Codes:?63787 ACTIV E WOUND CARE/20 CM OR <, [...] Loaiza DPM Date:? Generated for Ayah perez/Suze/Elif on:?09/08/2024 07:55 AM EDT History and Physical [...]
--- OUTSIDE RECORDS SUMMARY | 2024-09-08 07:55 | XMS_ITS | Patient Health Record ---
Author Organization [facility] Address [address] [place] [address] Care Team Providers Care Cement Finisher Apprentice Name Role Phone Edward Geronimo MD Primary Care Provider Sis Jay Unavailable [phone] Allergies Allergen (clinical drug ingredient) Drug/Non Drug Allergy documented on EMR Reaction Allergy Type Onset Date Status bee wasp (uncoded) Unknown Allergy A ctive erythromycin Erythromycin Unknown Drug Allergy A ctive Adhesive Unknown Allergy Active morphine Morphine Unknown Drug Allergy Active Results Component Value Reference Range Notes HEMOGLOBIN A1C (GLYCOHEMOGLO BIN) Reviewed date:07/16/2024 09:43:36 AM Interpretation: Performing Lab: Notes/Report: HEMOGLOBIN A1C % (HH) 6.1 HEMOGLOBIN A1C (GLYCOHEMOGLO BIN) Reviewed date:05/07/2024 09:05:54 AM Interpretation: Performing Lab: Notes/Report: HEMOGLOBIN A1C % (HH) 5.7 HEMOGLOBIN A1C (GLYCOHEMOGLO BIN) Reviewed date:11/27/2023 09:54:41 [...] Problem Acquired hammer toe of right foot (9984053979402467 ) Other hammer toe(s) (acquired), right foot (M20.41) Active confirmed Problem Acquired hammer toe of left foot (0956236423919098 ) Other hammer toe(s) (acquired), left foot (M20.42) Active confirmed Problem Polyneuropathy due to type 2 diabetes mellitus (863340404) Type 2 diabetes mellitus with diabetic polyneuropathy [...] 07/16/2024 Encounters Encounter Location Date Provider Diagnosis [facility] [address] [place] [address] 11/27/2023 Sis Loaiza Type 2 diabetes mellitus with diabetic polyneuropathy E11.42 ; Other hammer toe(s) (acquired), left foot M20.42 ; Tinea unguium B35.1 ; Other hammer toe(s) (acquired), right foot M20.41 ; Neuropathic ulcer of toe of right foot, limited to breakdown of skin L97.511 and Neuropathic ulcer of toe of left foot, limited to breakdown of skin L97.[address] [address] 02/12/2024 Sis Loaiza Other hammer toe(s) (acquired), left foot M20.42 ; Other hammer toe(s) (acquired), right foot M20.41 ; Type 2 diabetes mellitus with diabetic polyneuropathy E11.42 and Neuropathic ulcer of toe of right foot, limited to breakdown of skin L97.[address] [address] 05/07/2024 Sis Loaiza Other hammer toe(s) (acquired), left foot M20.42 ; Other hammer toe(s) (acquired), right foot M20.41 ; Type 2 diabetes mellitus with diabetic polyneuropathy E11.42 ; Neuropathic ulcer of toe of right foot, limited to breakdown of skin L97.511 and Xerosis of skin L85.[address] [address] 07/16/2024 Sis Loaiza Other hammer toe(s) (acquired), right foot M20.41 ; Hallux limitus of right foot M20.5X1 ; Other hammer toe(s) (acquired), left foot M20.42 ; Type 2 diabetes mellitus with diabetic polyneuropathy E11.42 ; Neuropathic ulcer of toe of right foot, limited to breakdown of skin L97.511 ; Pain in right foot M79.671 and Tinea unguium B35.[address] [address] 10/05/2023 Sis Loaiza [address] [address] 11/27/2023 Sis Loaiza Assessments Encounter Date Diagnosis [...] Details Provider Name:Sis garcia, 10/08/2024 09:15:00 AM, [address] [place] [address], [place], [address], Insurance Providers Payer Name Payer Address Payer Phone Subscriber Number Group Number Insured Name Patient Relationship to Insured Coverage Start Date Coverage End Date Medicare National [employer] [address] [facility] [address] [id number] Marielle Soria Self - patient is the insured [facility] [address] [place] [address] [id number] Marielle Soria Self - patient is the insured Medical (General) History Medical History History ICD Code Angina Arthritis Back,Hip,and Knee pain CAD (Cholesterol) Cataracts covid-19 Diabetic Gall bladder problems Glaucoma Headaches/Migraines Heart disease Numbness Poor circulation Reflux ( GERD) Sciatica Measles Mumps Chicken pox Plantar fasciitis Surgical History Surgery Date(Month/Year) Stent breast reduction foot surgery
--- OUTSIDE RECORDS SUMMARY | 2024-09-08 07:56 | XMS_ITS ---
Author Organization [facility] Address [address] [place] [address] Care Team Providers Care Recruiting And Selection Consultant Name Role Phone Edward Geronimo MD Primary Care Provider Sis Jay Unavailable [phone] Allergies Allergen (clinical drug ingredient) Drug/Non Drug [...] 025 Encounters Encounter Location Date Provider Diagnosis [facility] [place] [address] [place] [address] 07/16/2024 Sis Loaiza Other hammer toe(s) (acquired), [...] Garcia Sana garcia, 10/08/2024 09:15:00 AM, [address] [place], [address], Procedure Notes * Category Sub-Category Detail Notes [...] use of a nail nipper and/or dremel-type lap grinder, to a more viable healthy nail [...] to maintain effectiveness in symptomatic relief - 23472 Debride skin< 25 sq cm Open wound [...] of the wound post debridement is stable (45681), The patient was instructed to change dressings [...] instrumentation by the physician of record - 23133 Progress Notes * Marielle BALBUENA MDOB:[birth year] (68 yo F)Acc No.[id number]:07/16/2024 Progress Note Patient:?Marielle BALBUENA Provider:?Sis Loaiza DPM :1955???Age:68 Y???Sex:Female D ate:07/16/2024 Address:[address] [place], [place] [id number] Pcp:Edward Geronimo MD Subjective: * Chief Complaints: [...] waspyes[Allergies Verified] Objective: * Vitals:?Ht:5ft8in, Wt:224, B NH:34.06, Shoe size:9, BP:120/70mm Hg, BS:111, Ht- cm: [...] LO, LAT RAISED HALLUX, RIGHTTaken by trainedPodiatric Governor Assembler (EF ).?Findings:?normal bone and soft tissue density [...] use of a nail nipper and/or dremel-type lap grinder, to a more viable healthy nail [...] to maintain effectiveness in symptomatic relief - 49190.?Debride skin< 25 sq cm:?Open wound?NEUROPATHY: Physician of [...] of the wound post debridement is stable (99980), The patient was instructed to change dressings [...] instrumentation by the physician of record - 31693.? * Procedure Codes:?84658 ACTIV E WOUND CARE/20 CM OR <, Modifiers: XS 24959 X-RAY EXAM OF RIGHT FOOT 3V, Modifiers: 26 , UC44321 DEBRIDE NAIL, 6 OR MORE, Modifiers: XS 05619 TRIM SKIN LESIONS, OVER 4, Modifiers: XS [...] SED HALLUX, RIGHT Taken by trained Podiatric Governor Assembler ( EF ) Clinical Indication(s): Evaluate Biomech anical Deformity
[2024-09-08 10:45] LABS: Appearance Urine Clear; Color Urine Yellow; Glucose Urine UA Negative (Negative); Leukocyte Esterase Urine Negative (Negative); Nitrite Urine Negative (Negative); PH 6.5 (5.0-9.0); Specific Gravity - Urine 1.015 (1.005-1.025); Urine Blood Negative (Negative); Urine Ketones Negative (Negative); Urine Protein Negative (Neg-Trace)
[2024-09-08 10:50] LABS: Hematocrit 45.8 % (37.0-47.0); Hemoglobin 14.8 g/dl (12.0-16.0); Mean Corpuscular HGB Conc 32.3 g/dl (31.0-35.0); Mean Corpuscular Hemoglobin 29.3 pg (27.0-33.0); Mean Corpuscular Volume 90.7 fL (80.0-98.0); Mean Platelet Volume 10.3 fL (9.4-12.3); Platelet Count 243 X10*3/uL (160-400); Red Blood Count 5.05 X10*6/uL (4.20-5.50); Red Cell Distribution Width 14.8 % (11.0-16.0); White Blood Count 8.4 X10*3/uL (4.8-10.8)
[2024-09-08 11:01] LABS: Estimated Average Glucose 117 mg/dL; Hemoglobin A1C 152.0623 umol/L; Hemoglobin A1c % 5.7 % (<6.0); Total Hemoglobin (HGBA1C) 3885.0479 umol/L
[2024-09-08 11:10] LABS: Creatinine Urine 110.96 mg/dL; Microalbum/Creatinine Ratio Ur 12.6 ug/mg cr (<30)
[2024-09-08 11:24] LABS: Alanine Aminotransferase 21 U/L (0-31); Albumin Level 4.3 g/dL (3.5-5.0); Alkaline Phosphatase 112 U/L (39-117); Anion Gap 12 (12-20); Aspartate Amino Transferase 25 U/L (5-31); Bilirubin Direct 0.2 mg/dL (0.0-0.5); Bilirubin Total 0.4 mg/dL (0.0-1.0); Blood Urea Nitrogen 7 mg/dL (9-16); Calcium 10.2 mg/dL (8.4-10.2); Carbon Dioxide 29 mmol/L (22-29); Chloride 105 mmol/L (96-108); Cholesterol 166 mg/dL (<200); Estimated Glomerular Filt Rate > 60; Glucose Random 109 mg/dL (60-115); HDL Cholesterol 58 mg/dL (>40); LDL Cholesterol Calculated 87 mg/dL (<100); Potassium 3.9 mmol/L (3.3-5.1); Sodium 142 mmol/L (135-145); Thyroid Stimulating Hormone 2.09 uIU/mL (0.32-4.0); Total Protein 7.2 g/dL (6.5-8.0); Triglycerides 106 mg/dL (<150)
== END 2024-09-08 07:53 | disposition home or self-care (01) ==
LOC: HO.10HDL 07:52
PROVIDERS: Nurse Practitioner Adult Health; Visit Provider Internal Medicine
DX: E78.5 Hyperlipidemia, unspecified (principal); E11.40 Type 2 diabetes mellitus with diabetic neuropathy, unspecified; Z79.4 Long term (current) use of insulin
CPT/HCPCS: 36415; 80053; 80061; 80076; 81003; 82043; 82248; 82570; 83036; 84443; 85027

== ENCOUNTER 2024-10-06 06:26 | Day surgery (SDC) | payer MEDICARE, OTHER, SELFPAY ==
--- OUTSIDE RECORDS SUMMARY | 2024-09-11 14:32 | XMS_ITS | Patient Health Record ---
Author Organization [facility] Address [address] [place] [address] Care Team Providers Care Chief Relay Tester Name Role Phone Edward Geronimo MD Primary Care Provider Sis Jay Unavailable [phone] Allergies Allergen (clinical drug ingredient) Drug/Non Drug [...] Problem Acquired hammer toe of right foot (4607565841096677 ) Other hammer toe(s) (acquired), right foot (M20.41) Active confirmed Problem Acquired hammer toe of left foot (1576784847052343 ) Other hammer toe(s) (acquired), left foot (M20.42) Active confirmed Problem Polyneuropathy due to type 2 diabetes mellitus (183393871) Type 2 diabetes mellitus with diabetic polyneuropathy [...] 07/16/2024 Encounters Encounter Location Date Provider Diagnosis [facility] [place] [address] [place] [address] 11/27/2023 Sis Loaiza Type 2 diabetes mellitus with diabetic polyneuropathy E11.42 ; Other hammer toe(s) (acquired), left foot M20.42 ; Tinea unguium B35.1 ; Other hammer toe(s) (acquired), right foot M20.41 ; Neuropathic ulcer of toe of right foot, limited to breakdown of skin L97.511 and Neuropathic ulcer of toe of left foot, limited to breakdown of skin L97.[address] [address] 02/12/2024 Sis Loaiza Other hammer toe(s) (acquired), left foot M20.42 ; Other hammer toe(s) (acquired), right foot M20.41 ; Type 2 diabetes mellitus with diabetic polyneuropathy E11.42 and Neuropathic ulcer of toe of right foot, limited to breakdown of skin L97.[address] [address] 05/07/2024 Sis Loaiza Other hammer toe(s) (acquired), left foot M20.42 ; Other hammer toe(s) (acquired), right foot M20.41 ; Type 2 diabetes mellitus with diabetic polyneuropathy E11.42 ; Neuropathic ulcer of toe of right foot, limited to breakdown of skin L97.511 and Xerosis of skin L85.[address] [address] 07/16/2024 Sis Loaiza Other hammer toe(s) (acquired), right foot M20.41 ; Hallux limitus of right foot M20.5X1 ; Other hammer toe(s) (acquired), left foot M20.42 ; Type 2 diabetes mellitus with diabetic polyneuropathy E11.42 ; Neuropathic ulcer of toe of right foot, limited to breakdown of skin L97.511 ; Pain in right foot M79.671 and Tinea unguium B35.[address] [address] 10/05/2023 Sis Loaiza [address] [address] 11/27/2023 Ssi Loaiza Assessments Encounter Date Diagnosis (ICD Code) [...] Details Provider Name:Sis garcia, 10/08/2024 09:15:00 AM, [address] [place] [address], [place], [address], Insurance Providers Payer Name Payer Address Payer Phone Subscriber Number Group Number Insured Name Patient Relationship to Insured Coverage Start Date Coverage End Date Medicare National [employer] [address] [place] [address] [id number] Marielle Soria Self - patient is the insured [facility] [address] [place] [address] [id number] Marielle Soria Self - patient is the insured Medical (General) History Medical History History ICD Code Angina Arthritis Back,Hip,and Knee pain CAD (Cholesterol) Cataracts covid-19 Diabetic Gall bladder problems Glaucoma Headaches/Migraines Heart disease Numbness Poor circulation Reflux ( GERD) Sciatica Measles Mumps Chicken pox Plantar fasciitis Surgical History Surgery Date(Month/Year) Stent breast reduction foot surgery
[2024-09-22 10:30] VITALS: BP 124/57; PULSE 78; RESP 18; O2SAT 98; BMI 35.2
--- NOTE | 2024-09-25 12:11 | HO.ANESPROP2 ---
Documented by User: Krystle Monzon NP 09/25/24 12:23 HPI - Anesthesia Eval Consult details Narrative: 69yo F for Colonoscopy Follows [facility] pulnm for ephysema, stable lung nodules. At 05/2024 office visit, referred to cardiology for fatigue/MADDOX unexplained by PFT Follows [facility] for CAD s/p PCI and stent x 2 to RCA 06/2009, htn, hld Anesthesia Pre-Procedure Meds Is the patient on any of the following meds?: GLP1/DPP4 PMFSH Active Problems Active Problems: All Active Problems Pulmonary nodule (Acute) Pre-ulcerative corn or callous (Acute) Osteopenia (Acute) Personal history of nicotine dependence (Acute) Vitamin D deficiency (Acute) Hyperlipidemia LDL goal <70 (Acute) Type 2 diabetes mellitus with diabetic neuropathy, unspecified (Acute ~2004) Past Medical History Medical History (Updated 09/22/24 @ 10:19 by Alexandra Simpson RN) Back pain Insulin pump in place Diarrhea Hiatal hernia GERD (gastroesophageal reflux disease) SOB (shortness of breath) Seasonal allergies Elevated cholesterol Obesity History of [place] (myocardial infarction) (~2011) Personal history of nicotine dependence Tubular adenoma of colon (~2000) Vitamin D deficiency Hyperlipidemia LDL goal <70 Arthritis Neuropathy CAD (coronary artery disease) Type 2 diabetes mellitus with diabetic neuropathy, unspecified (~2004) Family History Family History (Updated 09/01/24 @ 09:49 by Beverley Xiong MA) Father Diabetes mellitus CVD (cardiovascular disease) Mother Oral cancer Brother Diabetes mellitus Surgical History Surgical History (Updated 09/22/24 @ 10:19 by Alexandra Simpson RN) History of carpal tunnel surgery of right wrist Hx of toe surgery History of esophagogastroduodenoscopy (EGD) History of bilateral breast reduction surgery History of tubal ligation History of foot surgery History of laparoscopic cholecystectomy History of heart artery stent History of colonoscopy (~04/09/13) History of appendectomy Social History Social History Household Members: Spouse Housing: House Are you a primary spiritual care coordinator to a significant other at home: No Do you presently have visiting nurse or other home services: No Patient Tobacco Use Status: Former Tobacco user Cigarette Packs Per Day: 1 Years Smoked: 25 e-Cigarette/Vaping Use: Former Use Use of substances other than those prescribed or required for medical reasons: Yes Substance Use Type Other:: occasional gummie Have you been hit, kicked, punched, or otherwise hurt by someone within the past year? If so, by whom?: No Are you DNR?: No Advance Directives: No Advance Directives Information Provided: Yes Advance Directives on File: No Patient : No : No Poor oral hygiene: No service: No Current occupational status: retired Cognitive needs: No Hearing needs: No Vision needs: Yes (rx glasses) Meds Allergies Allergy/AdvReac Type Severity Reaction Status Date / Time azithromycin [From ZITHROMAX] Allergy Unknown RASH Verified 09/01/24 09:09 bee pollen [BEE STINGS] Allergy Unknown ANAPHYLAXIS Verified 09/01/24 09:09 erythromycin base Allergy Unknown RASH Verified 09/01/24 09:09 [ERYTHROMYCIN BASE] morphine [MORPHINE] Allergy Unknown BRADYCARDIA, Verified 09/01/24 09:09 heart rate slows down neomycin Allergy Unknown adema Verified 09/01/24 09:09 amoxicillin [From Augmentin] Allergy Swelling Verified 09/22/24 10:13 clavulanic acid Allergy Swelling Verified 09/22/24 10:13 [From Augmentin] bees Allergy Unknown anaphylaxis Uncoded 08/12/24 07:58 Taurine Allergy Unknown hives Uncoded 08/12/24 07:58 Home Medications ?Medication ?Instructions ?Recorded ?Confirmed ?Last Taken ?Type albuterol sulfate 90 mcg/actuation 2 puff inhalation Q6-8H PRN 02/10/20 09/22/24 Unknown History aerosol inhaler Shortness Of Breath Or Wheezing aspirin 81 mg tablet,delayed 81 mg PO BEDTIME 02/10/20 09/22/24 Unknown History release (Adult Aspirin Regimen) epinephrine 0.3 mg/0.3 mL 0.3 mg IM Q10M PRN Anaphylaxis 02/10/20 09/22/24 Unknown History injection, auto-injector (EpiPen) nortriptyline 75 mg capsule 75 mg PO BEDTIME 02/10/20 09/22/24 Unknown History rosuvastatin 40 mg tablet 40 mg PO BEDTIME 02/10/20 09/22/24 Unknown History prochlorperazine maleate 10 mg 10 mg PO Q8H PRN Nausea 03/29/21 09/22/24 Unknown History tablet (Compazine) blood-glucose sensor (Dexcom G6 02/21/22 05/13/24 Unknown History Sensor device) blood-glucose transmitter (Dexcom 02/21/22 05/13/24 Unknown History G6 Transmitter device) subcutaneous insulin pump 02/21/22 05/13/24 Unknown History ropinirole 4 mg tablet 4 mg PO BEDTIME 05/25/22 09/22/24 Unknown History diltiazem HCl 360 mg 360 mg PO BEDTIME 02/07/24 09/22/24 Unknown History capsule,extended release 24 hr gabapentin 300 mg capsule 900 mg PO BEDTIME 09/01/24 09/22/24 Unknown History linaclotide 145 mcg capsule 145 mcg PO DAILY 09/01/24 09/22/24 Unknown History (Linzess) nitroglycerin 0.4 mg sublingual 0.4 mg sublingual DIRECTED PRN 09/01/24 09/22/24 Unknown History tablet Chest Pain Exam Height,Weight and Vital Signs: Height 5 ft 7 in Weight 102.058 kg Last Vital Signs Pulse 78 09/22/24 10:30 Resp 18 09/22/24 10:30 BP 124/57 L 09/22/24 10:30 Pulse Ox 98 09/22/24 10:30 O2 Del Method Room Air 09/22/24 10:30 Pertinent Lab Results Pertinent Lab Results: Laboratory Tests 09/08/24 07:55 WBC 8.4 Hgb 14.8 Hct 45.8 Plt Count 243 Sodium 142 Potassium 3.9 Chloride 105 Carbon Dioxide 29 BUN 7 L Creatinine 0.74 Narrative Narrative: EKG 05/2024 Ventricular Rate: 86 BPM Atrial Rate: 86 BPM P-R Interval: 190 ms QRS Duration: 84 ms Q-T Interval: 352 ms QTC Calculation(Bazett): 421 ms P Dunlap: 60 degrees R Dunlap: 27 degrees T Dunlap: 41 degrees Normal sinus rhythm Normal ECG When compared with ECG of 02-Nov-2016 07:18, No significant change was found Confirmed by Cheng Richardson ([id number]) on 06/17/2024 11:10:08 AM Cardiac cath 05/2024 Conclusions Diagnostic Summary Normal LV function. Normal LVEDP. There is some mild disease in the LAD 30% of the LAD. D1 has moderate 55% stenosis proximally. No significant stenosis in the circumflex. Proximal RCA stent is patent with some mild disease of mid. Nuc Stress 11/2023 Mild ischemia of apical, apical lateral and mid anterolat segments seen Nml LV sys function ECHO 11/2023 1. Imaged in NSR. EF 60-65%. No RWMA. LV thickness and diastolic function both nml 2. Nml RV size and function 3. Trileaflet aortic valve, no evidence of aortic stenosis, Ascending aortic root nml in size. 4. Trace mitral and tricuspid insufficiency, PA pressure was not calculated on the study 5. Nml pericardium when c/w to prior echo done in 2017, no significant change Assessment and Plan Assessment Anesthesia Assessment: Chart Reviewed Documented by User: Lynda Martin MD 10/06/24 07:37 PMFSH Past Medical History Medical History (Updated 09/22/24 @ 10:19 by Alexandra Simpson RN) Back pain Insulin pump in place Diarrhea Hiatal hernia GERD (gastroesophageal reflux disease) SOB (shortness of breath) Seasonal allergies Elevated cholesterol Obesity History of TX (myocardial infarction) (~2011) Personal history of nicotine dependence Tubular adenoma of colon (~2000) Vitamin D deficiency Hyperlipidemia LDL goal <70 Arthritis Neuropathy CAD (coronary artery disease) Type 2 diabetes mellitus with diabetic neuropathy, unspecified (~2004) Family History Family History (Updated 09/01/24 @ 09:49 by eBverley Xiong [place]) Father Diabetes mellitus CVD (cardiovascular disease) Mother Oral cancer Brother Diabetes mellitus Family history of problems with anesthesia: No Surgical History Surgical History (Updated 09/22/24 @ 10:19 by Alexandra Simpson RN) History of carpal tunnel surgery of right wrist Hx of toe surgery History of esophagogastroduodenoscopy (EGD) History of bilateral breast reduction surgery History of tubal ligation History of foot surgery History of laparoscopic cholecystectomy History of heart artery stent History of colonoscopy (~04/09/13) History of appendectomy History of Problems with Anesthesia: No Social History Social History Household Members: Spouse Housing: House Are you a primary spiritual care coordinator to a significant other at home: No Do you presently have visiting nurse or other home services: No Patient Tobacco Use Status: Former Tobacco user Cigarette Packs Per Day: 1 Years Smoked: 25 e-Cigarette/Vaping Use: Former Use Use of substances other than those prescribed or required for medical reasons: Yes Substance Use Type Other:: occasional gummie Have you been hit, kicked, punched, or otherwise hurt by someone within the past year? If so, by whom?: No Are you DNR?: No Advance Directives: No Advance Directives Information Provided: Yes Advance Directives on File: No Patient : No : No Poor oral hygiene: No service: No Current occupational status: retired Cognitive needs: No Hearing needs: No Vision needs: Yes (rx glasses) Meds Allergies Allergy/AdvReac Type Severity Reaction Status Date / Time azithromycin [From ZITHROMAX] Allergy Unknown RASH Verified 09/01/24 09:09 bee pollen [BEE STINGS] Allergy Unknown ANAPHYLAXIS Verified 09/01/24 09:09 erythromycin base Allergy Unknown RASH Verified 09/01/24 09:09 [ERYTHROMYCIN BASE] morphine [MORPHINE] Allergy Unknown BRADYCARDIA, Verified 09/01/24 09:09 heart rate slows down neomycin Allergy Unknown adema Verified 09/01/24 09:09 amoxicillin [From Augmentin] Allergy Swelling Verified 09/22/24 10:13 clavulanic acid Allergy Swelling Verified 09/22/24 10:13 [From Augmentin] bees Allergy Unknown anaphylaxis Uncoded 08/12/24 07:58 Taurine Allergy Unknown hives Uncoded 08/12/24 07:58 Home Medications ?Medication ?Instructions ?Recorded ?Confirmed ?Last Taken ?Type albuterol sulfate 90 mcg/actuation 2 puff inhalation Q6-8H PRN 02/10/20 09/22/24 Unknown History aerosol inhaler Shortness Of Breath Or Wheezing aspirin 81 mg tablet,delayed 81 mg PO BEDTIME 02/10/20 09/22/24 Unknown History release (Adult Aspirin Regimen) epinephrine 0.3 mg/0.3 mL 0.3 mg IM Q10M PRN Anaphylaxis 02/10/20 09/22/24 Unknown History injection, auto-injector (EpiPen) nortriptyline 75 mg capsule 75 mg PO BEDTIME 02/10/20 09/22/24 Unknown History rosuvastatin 40 mg tablet 40 mg PO BEDTIME 02/10/20 09/22/24 Unknown History prochlorperazine maleate 10 mg 10 mg PO Q8H PRN Nausea 03/29/21 09/22/24 Unknown History tablet (Compazine) blood-glucose sensor (Dexcom G6 02/21/22 05/13/24 Unknown History Sensor device) blood-glucose transmitter (Dexcom 02/21/22 05/13/24 Unknown History G6 Transmitter device) subcutaneous insulin pump 02/21/22 05/13/24 Unknown History ropinirole 4 mg tablet 4 mg PO BEDTIME 05/25/22 09/22/24 Unknown History diltiazem HCl 360 mg 360 mg PO BEDTIME 02/07/24 09/22/24 Unknown History capsule,extended release 24 hr gabapentin 300 mg capsule 900 mg PO BEDTIME 09/01/24 09/22/24 Unknown History linaclotide 145 mcg capsule 145 mcg PO DAILY 09/01/24 09/22/24 Unknown History (Linzess) nitroglycerin 0.4 mg sublingual 0.4 mg sublingual DIRECTED PRN 09/01/24 09/22/24 Unknown History tablet Chest Pain Exam Airway Mallampati Class: III TM Dist: >3cm Neck ROM: Full Assessment and Plan Assessment Anesthesia Assessment: Anesthesia Plan Discussed Final Anesthetic Review Family History of Problems with Anesthesia: No History of Problems with Anesthesia: No NPO: Yes ASA Class: III Final Preanesthetic Review: No Changes in Pt Med Stat, Meds/Allgs Chart Reviewed, Consent Obtained/Reviewed and Anes Risks/Benef Reviewed Patient Risk: Intermediate Procedure Risk: Low Anesthetic Plan Anesthetic Plan: TIVA Disposition: Standard PACU
[2024-10-06 06:36] VITALS: BMI 33.8
[2024-10-06 06:44] VITALS: BP 128/66; PULSE 89; RESP 16; TEMP 36.6; O2SAT 98
[2024-10-06] MEDS: Lactated Ringers 1,000 ML 100 ML IVCONT (07:00)
--- NOTE | 2024-10-06 08:52 | P.BOP_ITS ---
Brief Operative Note Date of Service: 10/06/24 Pre-op diagnosis: Screening Post-op diagnosis: other (Colon polyps) Procedure: Colonoscopy to the cecum with hot snare polypectomy x 3 with placement of Resolution clips Surgeon: Finn Maravilla MD Anesthesia: MAC Was an Assembly Machine Feeder used for this Procedure?: No Estimated blood loss (mL): 0 Pathology: other (A. Polyp at 40cm B. Polyp at 30cm C. Rectal polyp) Condition: stable Disposition: PACU
[2024-10-06 08:55] VITALS: BP 101/52; PULSE 80; RESP 18; TEMP 36.8; O2SAT 96
[2024-10-06 09:10] VITALS: BP 116/67; PULSE 79; RESP 18; TEMP 36.6; O2SAT 97
--- NOTE | 2024-10-06 09:42 | OP_ITS ---
DATE OF SERVICE: 10/06/2024 SURGEON: Finn Maravilla MD INDICATIONS: The patient presents for evaluation of colorectal cancer screening. Full consent has been obtained from her for this, including risks of bleeding and perforation. PREOPERATIVE DIAGNOSIS: Colorectal cancer screening. POSTOPERATIVE DIAGNOSIS: PROCEDURE PERFORMED: Colonoscopy to the cecum with hot snare polypectomy x 3 with placement of resolution clips. ESTIMATED BLOOD LOSS: COMPLICATIONS: ANESTHESIA: Medication used, monitored anesthesia care. ASSISTANTS: SPECIMENS: POSTOPERATIVE DIAGNOSES: Colorectal cancer screening, colon polyps, diverticulosis, and internal hemorrhoids. DESCRIPTION OF PROCEDURE: The patient was placed in the left lateral decubitus position. The digital rectal exam revealed no abnormalities. The Olympus video pediatric colonoscope was entered into the rectum and advanced to the cecum. Advancement to the cecum was quite difficult and required abdominal wall pressure by 2 people in 2 different locations in the left lower quadrant and in the right mid-abdomen to the right side. However, once in the cecum, I did identify normal-appearing cecal pouch after a lot of suctioning and irrigation. Good visualization was obtained. The appendiceal orifice appeared normal. The ileocecal valve appeared normal. The scope was then slowly withdrawn assessing all mucosal surfaces carefully. Preparation was excellent throughout the colon. At 40 cm, was an approximately 6 mm grossly adenomatous polyp which was removed by hot snare polypectomy and recovered by suction. The polypectomy site appeared clean, without any sign of residual polyp nor bleeding. A single resolution clip was applied to the polypectomy site with good deployment and good hemostasis. At 30 cm was an approximately 8 mm polyp on a short stalk which was removed by hot snare polypectomy and recovered by suction. The polypectomy site appeared clean, without any sign of residual polyp nor bleeding. 2 resolution clips were applied to the polypectomy site with good deployment and good hemostasis. In the rectum, seen best in the forward viewing position, was a distal rectal polyp on a short stalk measuring approximately 8 mm which appeared to be grossly adenomatous. This was also removed by hot snare polypectomy and recovered by suction. The polypectomy site appeared clean, without any sign of residual polyp nor bleeding. Two resolution clips were applied to the polypectomy site with good deployment and good hemostasis. Of note, 2 other clips were attempted to be applied initially, but those did not deploy well with 1 being loose in the rectum and 1 deploying onto a fold near the polypectomy site. The scope was retroflexed in the rectum visualizing internal hemorrhoids. I did not visualize any other polyps throughout the colon other than several less than 5mm grossly hyperplastic polyps which were not biopsies nor removed.. I did not visualize any colitis or angiodysplasia. There was a moderate amount of sigmoid diverticulosis. The scope was withdrawn from the patient. She tolerated the procedure well, and was returned to the recovery area in stable condition. IMPRESSION: 1. Colon polyps. 2. Diverticulosis. 3. Internal hemorrhoids. PLAN: The results of the pathology will be checked. Assuming these are adenomatous, I would recommend a repeat colonoscopy in 5 years. She was advised not to use any NSAIDs for 2 weeks and to resume her aspirin in 48 hours. She will otherwise see me as needed. This has been discussed with her . MD JABIER Bentley/KYLE / [id number] MTDD
== END 2024-10-06 09:44 | disposition home or self-care (01) ==
PROVIDERS: PCP Internal Medicine; Visit Provider Internal Medicine
PROC: 0DJD8ZZ Inspection of Lower Intestinal Tract, Via Natural or Artificial Opening Endoscopic (ICD-10-PCS; CPT 45378; principal; 2024-10-06 07:30)
DX: Z12.11 Encounter for screening for malignant neoplasm of colon (principal); Z86.0101 Personal history of adenomatous and serrated colon polyps; D12.5 Benign neoplasm of sigmoid colon; D12.8 Benign neoplasm of rectum; K57.30 Diverticulosis of large intestine without perforation or abscess without bleeding; K64.8 Other hemorrhoids; K59.09 Other constipation; I25.10 Atherosclerotic heart disease of native coronary artery without angina pectoris; Z95.5 Presence of coronary angioplasty implant and graft; I25.2 Old myocardial infarction; E11.21 Type 2 diabetes mellitus with diabetic nephropathy; E78.5 Hyperlipidemia, unspecified; Z79.4 Long term (current) use of insulin; Z96.41 Presence of insulin pump (external) (internal); Z79.85 Long-term (current) use of injectable non-insulin antidiabetic drugs; Z79.82 Long term (current) use of aspirin; Z79.899 Other long term (current) drug therapy; Z88.1 Allergy status to other antibiotic agents; Z88.8 Allergy status to other drugs, medicaments and biological substances; Z90.49 Acquired absence of other specified parts of digestive tract; Z98.890 Other specified postprocedural states; Z87.891 Personal history of nicotine dependence
CPT/HCPCS: 45385; 88305; J2003; J2704

== ENCOUNTER 2024-11-25 07:22 | Outpatient (REF) | payer MEDICARE, OTHER, SELFPAY ==
--- NOTE | ~2024-11-25 | CT_ITS ---
CLINICAL HISTORY: R91.1 - Solitary pulmonary nodule --- Additional Notes or Special Instructions: 08 19 24 LDCT = Lung RADS 4A - 7mm LLL - plan 3m repeat LDCT CT lung cancer screening (LDCT) Comparison: CT/SR - CT LUNG SCREENING - 08/18/24 08:[address]/REG/ND/SR - CT LUNG SCREENING - 08/14/22 09:28 EDT Technique: Axial CT images of the chest using low-dose technique. Referring provider counseled the patient on shared decision-making for LDCT screening. Additional counseling was provided on smoking cessation. Effective radiation dose total: DLP 57.2 mGycm, CTDIvol 1.7 mGy. Findings: There is a persistent cluster of nodules within the left lower lobe (4, 57- 64). There has been interval decrease in nodule sizes which now measure up to 4 mm. There is a 7 mm nodule within the lingula on image 105 appears slightly more prominent than it did on the prior exam dated 08/18/2024, but without significant change when compared to the prior study dated 08/14/2022. Multiple additional tiny pulmonary nodules measuring up to 5 mm in size are without change. Coronary artery calcifications: Moderate Limited upper abdomen: Unremarkable Other: There is a calcification within the left lobe of the thyroid gland without change. Impression: Category 2: Benign appearance or behavior. Continue annual screening. ##L2## Category 1: Normal; continue annual screening Category 2: Benign appearance or behavior, continue annual screening Category 3: Probably benign, [address] recommended Category 4A: Suspicious, [address] recommended; may consider PET/CT Category 4B: Suspicious, Additional diagnostics and/or tissue sampling recommended Category 4X: Suspicious, Additional diagnostics and/or tissue sampling recommended Category 0: Recalls (incomplete screen due to Incomplete coverage, Noise, Respiratory motion, Expiration, Obscured by acute abnormality) This document has been electronically signed by: Deisy Lord MD on 11/25/2024 16:55:19
--- OUTSIDE RECORDS SUMMARY | 2024-11-25 07:25 | XMS_ITS | Clinical Summary ---
Author Organization [facility] Address [address] [place] [address] Care Team Providers Care Psychologist Social Name Role Phone Unavailable Primary Care Provider Unavailabl e Encounters Date Type Department Care Team Description 11/19/2024 Scanned Document [facility] ORTHO SURGERY SCAN Orthopedic Surgery, Scan 10/31/2024 Scanned Document [facility] ORTHO SURGERY SCAN Orthopedic Surgery, Scan from Last 3 Months Social History Tobacco Use Types Packs/Day Years Used Date Smoking Tobacco: Never Assessed Comments Unknown Sex and Gender Information Value Date Recorded Sex Assigned at Not on file Legal Sex Female 7:06 PM EST Gender Identity Not on file Sexual Orientation Not on file Plan of Treatment Health Maintenance Due Date Last Done Comments Hepatitis C Virus Screening 1955 DTaP/Tdap/Td Vaccines (1 - Tdap) 1973 Pneumococcal Vaccines 50+ (1 of 1 - PCV) 2004 Zoster (Shingles) Vaccine (1 of 2) 2004 COVID-19 Vaccine ( - 2023-2 5 season) 2023 RSV Vaccine 60 years and old er and Patients (1 - 1-dose 75+ series) 2029 Hepatitis B Vaccines Aged Out No long er eligible based on patient's age to complete this topic
--- OUTSIDE RECORDS SUMMARY | 2024-11-25 07:25 | XMS_ITS | Patient Health Record ---
Author Organization [facility] Address [address] [place] [address] Care Team Providers Care Neurologist Name Role Phone Grazyna (RETIRED) Edward PAZ Primary Care Provide r Fnin Hudson [phone] Allergies Allergen (clinical drug ingredient) Drug/Non Drug Allergy documented on EMR Reaction Allergy Type Onset Date Status Talwin Unknown Drug Allergy Active morphine Morphine Sulfate Unknown Drug Allergy Active erythromycin Erythromycin Unknown Drug Allergy A ctive amoxicillin / clavulanate Augmentin Unknown Drug Allergy Active bees (uncoded) Unknown Allergy Activ e neomycin Neomycin Unknown Drug Allergy Active azithromycin Zithromax Unknown Drug Allergy Acti ve Results Component Value Reference Range Notes Pathology (Not yet reviewed by provider) Interpretation: Performing Lab:[facility], [address] [place] [id number] Notes/Report: Reason For Referral No Information Medications Medication [...] Aspir-81 81mg Active Vitamin D 50 MCG (1999 UT) [...] Status Risk Notes Problem Already on aspirin (162590651) Long-term (current) use of aspirin (V58.66) Active confirmed Problem Colon cancer screening (219406149) Colon cancer screening (V76.51) Active confirmed Problem Feces contents abnormal (836393922) Heme positive stool (792.1) Active confirmed Problem History of adenomatous polyp of colon (911082760) History of adenomatous polyp of colon (V12.72) Active confirmed Problem Nausea (299014672) Nausea (787.02) Active confirmed Problem Colon cancer screening (743731162) Colon cancer screening (Z12.11) Active confirmed Problem Screening for malignant neoplasm of colon (897872527) Encounter for screening for malignant neoplasm of colon (Z12.11) Active confirmed Problem Chronic constipation (554084479) Chronic constipation (K59.09) Active confirmed Vital Signs Temperature 98.6 degrees Fahrenheit 06/11/2024 Blood pressure diastolic 01 mm Hg 06/11/2024 Height 68 in 06/11/2024 Blood pressure systolic 001 mm Hg 06/11/2024 Weight 228 lbs 06/11/2024 BMI 34.66 kg/m2 06/11/2024 Encounters Encounter Location Date Provider Diagnosis [facility] [place] [address] [place] [id number] 10/06/2024 Finn Maravilla Colon cancer screeni ng Z12.11 ; Colon polyps K63.5 ; Benign neoplasm of rectum D12.8 and Diverticulosis of large intestine without perforation or abscess without bleeding K57.30 [facility] [address] [place] [address] 06/11/2024 Finn Maravilla Chronic constipation K59.09 ; Encounter for screening for malignant neoplasm of colon Z12.11 and Colon cancer screening Z12.11 [facility] [address] [place] [address] 06/11/2024 Finn Maravilla [facility] [address] [place] [phone] 07/23/2024 Finn Maravilla [facility] [address] [place] [address] 09/19/2024 Finn Maravilla Assessments Encounter Date Diagnosis (ICD Code) Assessment Notes Treatment Notes Treatment Clinical Notes Section Notes 10/06/2024 Colon cancer screening (ICD-10 - Z12.11) 10/06/2024 Colon polyps (ICD-10 - K63.5) 06/11/2024 Encounter for screening for malignant neoplasm of colon (ICD-10 - Z12.11) Overall, Chin does not seem to be having any worrisome GI complaints. She does have some worsening constipation but there has been no sign of bleeding. I did recommend she begin a regimen of some Metamucil and MiraLAX on a daily or twice a day basis. I shall also send over a prescription for her to start a trial of Linzess if her constipation remains problematic for her. Given her last colonoscopy being done over 10 years ago, her age, and some change in bowel habits, I did recommend a colonoscopy for evaluation and primarily screening purposes. We did review the rationale for this in regard to colon cancer prevention and/or early detection. The procedure will be done with monitored anesthesia care. She was given the below instructions regarding adjustment of her medications for the procedure. She will have a 2-day bowel prep for the procedure given her ongoing constipation. Given her upcoming cardiac catheterization and other medical problems she will be scheduled for a PAT prior to the colonoscopy as well. Chin was comfortable with this plan. Thank you again for allowing me to participate in Chin's care. I shall continue to keep you advised of her progress. 06/11/2024 Chronic constipation (ICD-10 - K59.09) Let me know results of the cardiac cath. We may need to postpone if you are put on a new blood thinner for a stent. Have Case Packer adjust your Insulin pump for the two day prep I will send over a Rx for Linzess, but use Miralax and 2 Metamucil fiber pills with a lot of water twice a day every day Overall, Chin does not seem to be having any worrisome GI complaints. She does have some worsening constipation but there has been no sign of bleeding. I did recommend she begin a regimen of some Metamucil and MiraLAX on a daily or twice a day basis. I shall also send over a prescription for her to start a trial of Linzess if her constipation remains problematic for her. Given her last colonoscopy being done over 10 years ago, her age, and some change in bowel habits, I did recommend a colonoscopy for evaluation and primarily screening purposes. We did review the rationale for this in regard to colon cancer prevention and/or early detection. The procedure will be done with monitored anesthesia care. She was given the below instructions regarding adjustment of her medications for the procedure. She will have a 2-day bowel prep for the procedure given her ongoing constipation. Given her upcoming cardiac catheterization and other medical problems she will be scheduled for a PAT prior to the colonoscopy as well. Chin was comfortable with this plan. Thank you again for allowing me to participate in Chin's care. I shall continue to keep you advised of her progress. 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 She does have some worsening constipation but there has been no sign of bleeding. I did recommend she begin a regimen of some Metamucil and MiraLAX on a daily or twice a day basis. I shall also send over a prescription for her to start a trial of Linzess if her constipation remains problematic for her. Given her last colonoscopy being done over 10 years ago, her age, and some change in bowel habits, I did recommend a colonoscopy for evaluation and primarily screening purposes. We did review the rationale for this in regard to colon cancer prevention and/or early detection. The procedure will be done with monitored anesthesia care. She was given the below instructions regarding adjustment of her medications for the procedure. She will have a 2-day bowel prep for the procedure given her ongoing constipation. Given her upcoming cardiac catheterization and other medical problems she will be scheduled for a PAT prior to the colonoscopy as well. Chin was comfortable with this plan. Thank you again for allowing me to participate in Chin's care. I shall continue to keep you advised of her progress. 10/06/2024 Diverticulosis of large intestine without perforation or abscess without bleeding (ICD-10 - K57.30) Plan Of Treatment Pending Test Test Name Order Date CT COLON DIAGNOSTIC NO CONTRAST 09/07/19 13 Pathology 10/06/2024 Future Test Test Name Order Date COLONOSCOPY 06/07/2012 COLONOSCOPY 06/11/2024 Insurance Providers Payer Name Payer Address Payer Phone Subscriber Number Group Number Insured Name Patient Relationship to Insured Coverage Start Date Coverage End Date [employer] [place] [address] [place] [address] [id number] NOVATYRESECHIN CASTELLANOS Self - patient is the insured [employer] [address] [place] [phone] [id number] NOVATYRESECHIN CASTELLANOS Self - patient is the insured Medical (General) History Medical History History ICD Code Hyperlipidema Denies CVA,Lung disease,renal disease [place] 2009-cardiac cath with [address]-fine since Colonoscopy 2000 with a tubu lar adenoma removed, and a F/U colonoscopy in 04/2006 neg except for a hyperplastic polyp EGD in 2000-small HH, no Bar rett's esophagus, biopsies negative for celiac disease Diabetes mellitus on diabetic pump IA > 10 years ago -2 stents in RCA---[facility]DM--on a pump Tachycardia 2 negative colonoscopies in 2012 but could not completely the enter cecum. A CT colonography in between the two colonoscopies revealed a normal appearing cecum but raised a suspicion of a polyp in the ascending colon. The ascending colon appeared normal on the 2nd colonoscopy as well. Surgical History Surgery Date(Month/Year) breast reduction surgery cholecystectomy appendectomy tubal ligation plantar fascitis with surgery on right f oot right carpal tunnel right foot with pinning of toes
--- OUTSIDE RECORDS SUMMARY | 2024-11-25 07:25 | XMS_ITS | Patient Health Record ---
Author Organization [facility] Address [address] [place] [address] Care Team Providers Care Compressed Gases Tester Name Role Phone Aquilino Vo Primary Care Provider Sis Loaiza Unavailable [phone] Allergies Allergen (clinical drug ingredient) Drug/Non Drug [...] (HH) 6.1 HEMOGLOBIN A1C (GLYCOHEMOGLO BIN) Reviewed date:10/08/2024 09:20:48 AM Interpretation: Performing Lab: Notes/Report: HEMOGLOBIN A1C % (HH) 5.7 Reason For Referral No Information Medications Medication SIG (Take, Route, Frequency, Duration) Notes Start Date End Date Status Nortriptyline HCl Ac tive OT Refurbishment Needs offloading of plantar hallux, function hallux limitus right foot, reverse Mornon's extension 07/16/2024 Active EpiPen Active Ozempic Not-Taking PriLOSEC Active Mounjaro Not-Taking Rosuvastatin Calcium Active rOPINIRole HCl Activ e Linzess Active Compazine Active Ozempic (1 MG/DOSE) Active Fioricet Active Augmentin Active dilTIAZem HCl Active HumaLOG Active Motrin Active Aspirin Active Tylenol Active Gabapentin Active Extra Depth Orthopedic Shoes (1 Pair) with Customized Heat Molded Multidensity Innersoles (3 Pair) as directed Dx: NIDDM/Polyneuropathy (E11.42), Hammertoe Foot Deformity (M20.41,M20.42), Preulcerative Skin Lesion(s) (L85.1 11/27/2023 Active Immunizations Vaccine Route Administration Date Status Comme nts Influenza Unknown 12/22/2022 Administered Influenza Unknown 12/23/2023 Administered Social History Tobacco Use: Social History [...] Problem Acquired hammer toe of right foot (8858971923163752 ) Other hammer toe(s) (acquired), right foot (M20.41) Active confirmed Problem Acquired hammer toe of left foot (4301401037923356 ) Other hammer toe(s) (acquired), left foot (M20.42) Active confirmed Problem Plantar wart (57777978) Plantar wart (B07.0) Active confirmed Problem Polyneuropathy due to type 2 diabetes mellitus (933220781) Type 2 diabetes mellitus with diabetic polyneuropathy (E11.42) Active confirmed Problem Neuropathic ulce r of toe of left foot, limited to breakdown of skin (L97.521) Active confirmed Problem Neuropathic ulce r of toe of right foot, limited to breakdown of skin (L97.511) Active confirmed Vital Signs Blood pressure diastolic 70 mm Hg 10/08/2024 Height 5ft8in in 10/08/2024 Blood pressure systolic 120 mm Hg 10/08/2024 Weight 220 lbs 10/08/2024 BMI 33.45 kg/m2 10/08/2024 Encounters Encounter Location Date Provider Diagnosis [facility] [address] [place] [address] 11/27/2023 Sis Loaiza Type 2 diabetes mellitus with diabetic polyneuropathy E11.42 ; Other hammer toe(s) (acquired), left foot M20.42 ; Tinea unguium B35.1 ; Other hammer toe(s) (acquired), right foot M20.41 ; Neuropathic ulcer of toe of right foot, limited to breakdown of skin L97.511 and Neuropathic ulcer of toe of left foot, limited to breakdown of skin L97.[address] [address] 02/12/2024 Sis Loaiza Other hammer toe(s) (acquired), left foot M20.42 ; Other hammer toe(s) (acquired), right foot M20.41 ; Type 2 diabetes mellitus with diabetic polyneuropathy E11.42 and Neuropathic ulcer of toe of right foot, limited to breakdown of skin L97.[address] [address] 05/07/2024 Sis Loaiza Other hammer toe(s) (acquired), left foot M20.42 ; Other hammer toe(s) (acquired), right foot M20.41 ; Type 2 diabetes mellitus with diabetic polyneuropathy E11.42 ; Neuropathic ulcer of toe of right foot, limited to breakdown of skin L97.511 and Xerosis of skin L85.[address] [address] 07/16/2024 Sis Loaiza Other hammer toe(s) (acquired), right foot M20.41 ; Hallux limitus of right foot M20.5X1 ; Other hammer toe(s) (acquired), left foot M20.42 ; Type 2 diabetes mellitus with diabetic polyneuropathy E11.42 ; Neuropathic ulcer of toe of right foot, limited to breakdown of skin L97.511 ; Pain in right foot M79.671 and Tinea unguium B35.[address] [address] 10/08/2024 Sis Loaiza Type 2 diabetes mellitus with diabetic polyneuropathy E11.42 ; Plantar wart B07.0 and Toe pain, right M79.674 [facility] [address] [place] [address] 11/27/2023 Sis Loaiza Assessments Encounter Date Diagnosis [...] limitus of right foot (ICD-10 - M20.5X1) 10/08/2024 Plantar wart (ICD-10 - B07.0) 10/08/2024 Type 2 diabetes mellitus with diabetic polyneuropathy (ICD-10 - E11.42) 10/08/2024 Toe pain, right (ICD-10 - M79.674) 07/16/2024 Other hammer toe(s) (acquired), left foot [...] 07/16/2024 Next Appt Details Provider Name:Sis garcia, 12/30/2024 10:00:00 AM, [address] [place] [address], [phone], Insurance Providers Payer Name Payer Address Payer Phone Subscriber Number Group Number Insured Name Patient Relationship to Insured Coverage Start Date Coverage End Date [employer] [address] [place] [address] [id number] Marielle Soria Self - patient is the insured [facility] [address] [place] [address] [phone] [id number] Marielle Soria Self - patient is the insured Medical (General) History Medical History History ICD Code Angina Arthritis Back,Hip,and Knee pain CAD (Cholesterol) Cataracts covid-19 Diabetic Gall bladder problems Glaucoma Headaches/Migraines Heart disease Numbness Poor circulation Reflux ( GERD) Sciatica Measles Mumps Chicken pox Plantar fasciitis Surgical History Surgery Date(Month/Year) Stent breast reduction foot surgery colonoscopy 10/15
== END 2024-11-25 07:23 | disposition home or self-care (01) ==
LOC: HO.CT 07:22
PROVIDERS: PCP Internal Medicine; Visit Provider Physician Assistant Medical
DX: R91.1 Solitary pulmonary nodule (principal); Z87.891 Personal history of nicotine dependence
CPT/HCPCS: 71250

== ENCOUNTER → 2024-11-25 07:23 | Outpatient (BNV) | payer MEDICARE, OTHER, SELFPAY | PROVIDERS: PCP Internal Medicine; Visit Provider Radiology Diagnostic Radiology | DX: R91.1 Solitary pulmonary nodule (principal) | CPT/HCPCS: 71250 ==

== ENCOUNTER 2024-12-02 08:29 | Outpatient (AMB) | payer MEDICARE, OTHER, SELFPAY ==
[2024-12-02 08:35] VITALS: BP 112/68; PULSE 96; O2SAT 97; BMI 33.9
--- NOTE | 2024-12-02 08:35 | A.OFFVIS_ITS ---
Vital Signs 12/02/24 08:35 Height 5 ft 8 in Weight 222 lb 10.67 oz BMI 33.9 BP 112/68 Blood Pressure Location Rt brachial Position Sitting Pulse 96 Pulse Source Pulse Oximeter Pulse Oximetry (%) 97 Oxygen Delivery Method Room Air Intake Visit Reasons: T2DM Intake Note: Patient present today to follow up on Type 2 Diabetes Mellitus. Last seen by Mariana Velasquez on 08/12/2024. Last Diabetic Eye exam: Patient has a coming up appt at the end of this month Last Podiatry Visit: 10/08/2024 [facility] Random Glucose: 137 mg/dL HgA1C: 5.4%, 12/02/2024 Home Sales Consultant Required: No Allergies azithromycin (From ZITHROMAX) Allergy (Unknown, Verified 12/02/24 08:40) RASH bee pollen (BEE STINGS) Allergy (Unknown, Verified 12/02/24 08:40) ANAPHYLAXIS erythromycin base (ERYTHROMYCIN BASE) Allergy (Unknown, Verified 12/02/24 08:40) RASH morphine (MORPHINE) Allergy (Unknown, Verified 12/02/24 08:40) BRADYCARDIA, heart rate slows down neomycin Allergy (Unknown, Verified 12/02/24 08:40) adema amoxicillin (From Augmentin) Allergy (Verified 12/02/24 08:40) Swelling clavulanic acid (From Augmentin) Allergy (Verified 12/02/24 08:40) Swelling bees Allergy (Unknown, Uncoded 12/02/24 08:40) anaphylaxis Taurine Allergy (Unknown, Uncoded 12/02/24 08:40) hives Medication List - Last Reconciled 12/02/24 by Finn Sales MD albuterol sulfate 90 mcg/actuation 2 puffs inhalation Q6-8H PRN aspirin (Adult Aspirin Regimen) 81 mg PO BEDTIME blood-glucose sensor (Dexcom G6 Sensor device) As directed 1 every 10 days blood-glucose transmitter (Dexcom G6 Transmitter device) As directed 1 every 3 months jskkqpczcx-tkiemwfpjpdtu-cxlw 50-300-40 mg (Fioricet) 1 cap PO TID PRN diltiazem HCl CD 360 mg PO BEDTIME epinephrine (EpiPen) 0.3 mg IM Q10M PRN gabapentin 900 mg PO BEDTIME insulin aspart U-100 up to 85 units via pump subcutaneously daily; 90 days MDD 80 units NS linaclotide (Linzess) 145 mcg PO DAILY lorazepam 0.5 mg PO BID PRN nitroglycerin 0.4 mg sublingual DIRECTED PRN nortriptyline 75 mg PO BEDTIME omeprazole 20 mg PO DAILY prochlorperazine maleate (Compazine) 10 mg PO Q8H PRN ropinirole 4 mg PO BEDTIME rosuvastatin 40 mg PO BEDTIME semaglutide (Ozempic) 1 mg (0.75 mL) subcut QWEEK 28 days subcutaneous insulin pump As directed Tandem Pump HPI Comments Details: Patient is 69 yo female with DM type 2 diagnosed around 2004, for management of her diabetes. 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 She was last seen 08/12/24 by Mariana Hinojosa NP She was changed from Mounjaro to low-dose Ozempic which she is taking it 1 mg. She reports she has had moves her bowels several times per week and it was not hard when she does have a bowel movement. She never feels bloated or hard abdomen and has attempted to increase her fiber. She is now up to several glasses of water daily.. She is on an Omnipod insulin pump. Prior medications: Metformin intolerant due to gastric upset, ,mounjaro: wasn't effective at low dose nd had constipation Diabetes medications Novlog via T-slim X2 pump with control IQ Ozempic 1 mg weekly Backup pump failure plan 36 units of Degludec and Humalog according to her usual dosing. Dexcom average glucose: 131 14 day continuous glucose monitor report reviewed Glucose Managment indicator 6.5 % Days with CGM data [ ] % TIme in ranges: 1 % very high (above 250) 7 % high ?(181-250) 90% in range ?(70-180] 1 % low (69-55) 1 % ?very low (below 54) Interpretation: In excellent control Omnipod insulin pump Basal Setting 12 AM 2.4 units / hr 4 pm 2.4 units/ hr Bolus setting Insulin Carbohydrate Ratio (s) 12 AM? to 12 AM? 1:7 Correction Factor / Sensitivity Factor 12 AM? to 12 PM? 1:38 12 PM to? 12 AM? 1:38 Active Insulin Time:? 5 hours Target(s): 12 AM? to 12 PM? 110 mg/dL No retinopathy Last eye exam:09/2023 Appt at end of mo Positive neuropathy: Complaints of numbness, tingling but no cramping in the lower extremities, sees Podiatry regularly and has callus formation on her feet on gabapentin gets pain in right great toe No nephropathy. EGFR > 60, microalbumin 11.0 Has CAD on statin most recent: 02/2023 LDL 76 She is followed by Cardiology No hypoglycemia Exercise: Limited. [facility] screen Fibrosis-4 (Fib-4) Index for liver fibrosis (calculated on lab work done: 09/2023 ) 1.08 points Advanced fibrosis excluded Approximate Fibrosis stage Altaf 0-1 *Use with caution in patients <35 or >65 years old, as the score has been shown to be less reliable in these patients. Prior Imaging abdominal ultrasound 2021:LIVER: Liver size is enlarged measuring 20.3 cm in length. The liver contour is normal. There is increased liver echogenicity with areas of focal fatty sparing. No focal hepatic lesion. There is no intrahepatic biliary duct dilatation seen. Action Plan: rescreen two years from date of screening labs09/2025 ? [facility] Medical History Back pain Insulin pump in place Diarrhea Hiatal hernia GERD (gastroesophageal reflux disease) SOB (shortness of breath) Seasonal allergies Elevated cholesterol Obesity History of IN (myocardial infarction) (~2011) Personal history of nicotine dependence Tubular adenoma of colon (~2000) Vitamin D deficiency Hyperlipidemia LDL goal <70 Arthritis Neuropathy CAD (coronary artery disease) Type 2 diabetes mellitus with diabetic neuropathy, unspecified (~2004) Surgical History (Updated 12/02/24 @ 08:41 by BELEN Sharpe) History of total hip replacement History of carpal tunnel surgery of right wrist Hx of toe surgery History of esophagogastroduodenoscopy (EGD) History of bilateral breast reduction surgery History of tubal ligation History of foot surgery History of laparoscopic cholecystectomy History of heart artery stent History of colonoscopy (10/06/24) History of appendectomy Family History Father Diabetes mellitus CVD (cardiovascular disease) Mother Oral cancer Brother Diabetes mellitus Social History Household Members: Spouse Housing: House Are you a primary cna caregiver to a significant other at home: No Do you presently have visiting nurse or other home services: No Patient Tobacco Use Status: Former Tobacco user Cigarette Packs Per Day: 1 Years Smoked: 25 e-Cigarette/Vaping Use: Former Use service: No Current occupational status: retired Cognitive needs: No Hearing needs: No Vision needs: Yes (rx glasses) Physical Exam Vital Signs: Last Vital Signs Pulse 96 12/02/24 08:35 BP 112/68 12/02/24 08:35 Pulse Ox 97 12/02/24 08:35 Oxygen Delivery Method Room Air 12/02/24 08:35 BMI result Body Mass Index 33.9 Const Other: Absence of Cushingoid features. Absence of acromegalic features. Neck exam reveals nl size thyroid about 15 gms. No thyroid nodules palpable. No carotid bruits present. Lungs CTA. Heart S1 S2, Reg R/R. No M/R G. Skin exam reveals absence of vitiligo or acanthosis nigricans. No edema Visual exam of foot performed. No ulcerations or open lesions. Hammer toes left sided, mild callous left great toe No inter digit maceration or fissuring. No onychomycosis, no callouses. Sensation intact to monofilament exam. Vibratory sensation is normal with 128 Hz tuning fork. pulse 2+ Results AMB Hemoglobin A1c AMB Hemoglobin A1c 5.4 % Last Edit by BELEN Sharpe on 12/02/24 08:55 Results Reviewed Results Reviewed: Laboratory Last Values Glucose (Clinic) 137 mg/dL (60-115) H 12/02/24 08:42 Assessment & Plan Assessment & Plan (1) Type 2 diabetes mellitus with diabetic neuropathy, unspecified: Onset Date: ~2004 Comment: (IDDM2, with neuropathy) Code(s): E11.40 - Type 2 diabetes mellitus with diabetic neuropathy, unspecified Category: Medical Qualifiers: Diabetes mellitus assistant terminal manager insulin use: with mcc use Qualified Code(s): E11.40 - Type 2 diabetes mellitus with diabetic neuropathy, unspecified; Z79.4 - long term (current) use of insulin Plan: This 67-year-old white female with history of type 2 diabetes being managed with T-slim X 2 pump and Ozempic with excellent glycemic control and known microvascular complications namely neuropathy and macrovascular complications of CAD. The plan is to continue the current settings. Orders: Orders AMB Hemoglobin A1c Today E11.40 - Type 2 diabetes mellitus with diabetic neuropathy, unspecified, Z79.4 - long term (current) use of insulin Coding Level of Care Code Est Pt Level 4 (88309) Complex EM visit Add On G2211 Diagnoses Type 2 diabetes mellitus with diabetic neuropathy, with long-term current use of insulin E11.40; Z79.4 Diabetes mellitus assistant terminal manager insulin use: with mcc use
[2024-12-02 08:46] LABS: Glucose, Whole Blood 137 mg/dL (60-115)
--- OUTSIDE RECORDS SUMMARY | 2024-12-02 08:47 | XMS_ITS | Clinical Summary ---
Author Organization [facility] Address [address] [place] [address] Care Team Providers Care Personal Health Coach Name Role Phone Unavailable Primary Care Provider Unavailabl e Encounters Date Type Department Care Team Description 11/19/2024 Scanned Document [facility] ORTHO SURGERY SCAN Orthopedic Surgery, Scan 10/31/2024 Scanned Document [facility] ORTHO SURGERY SCAN Orthopedic Surgery, Scan [...]
--- OUTSIDE RECORDS SUMMARY | 2024-12-02 08:47 | XMS_ITS | Patient Health Record ---
Author Organization [facility] Address [address] [place] [address] Care Team Providers Care Management Information Systems Director Name Role Phone Aquilino Vo Primary Care Provider [phone] Sis Loaiza Unavailable [phone] Allergies Allergen (clinical drug ingredient) Drug/Non Drug [...] Problem Acquired hammer toe of right foot (9681709295648630 ) Other hammer toe(s) (acquired), right foot (M20.41) Active confirmed Problem Acquired hammer toe of left foot (0940500366227255 ) Other hammer toe(s) (acquired), left foot (M20.42) Active confirmed Problem Plantar wart (51795774) Plantar wart (B07.0) Active confirmed Problem Polyneuropathy due to type 2 diabetes mellitus (400042601) Type 2 diabetes mellitus with diabetic polyneuropathy [...] 10/08/2024 Encounters Encounter Location Date Provider Diagnosis [facility] [address] [place] [address] 02/12/2024 Sis Loaiza Other hammer toe(s) (acquired), left foot M20.42 ; Other hammer toe(s) (acquired), right foot M20.41 ; Type 2 diabetes mellitus with diabetic polyneuropathy E11.42 and Neuropathic ulcer of toe of right foot, limited to breakdown of skin L97.[address] [address] 05/07/2024 Sis Loaiza Other hammer toe(s) (acquired), left foot M20.42 ; Other hammer toe(s) (acquired), right foot M20.41 ; Type 2 diabetes mellitus with diabetic polyneuropathy E11.42 ; Neuropathic ulcer of toe of right foot, limited to breakdown of skin L97.511 and Xerosis of skin L85.[address] [address] 07/16/2024 Sis Loaiza Other hammer toe(s) (acquired), right foot M20.41 ; Hallux limitus of right foot M20.5X1 ; Other hammer toe(s) (acquired), left foot M20.42 ; Type 2 diabetes mellitus with diabetic polyneuropathy E11.42 ; Neuropathic ulcer of toe of right foot, limited to breakdown of skin L97.511 ; Pain in right foot M79.671 and Tinea unguium B35.[address] [address] 10/08/2024 Sis Loaiaz Type 2 diabetes mellitus with diabetic polyneuropathy E11.42 ; Plantar wart B07.0 and Toe pain, right M79.674 Assessments Encounter Date Diagnosis (ICD Code) Assessment Notes Treatment Notes Treatment Clinical Notes Section Notes 02/12/2024 Other hammer toe(s) (acquired), right foot [...] 05/07/2024 Xerosis of skin (ICD-10 - L85.3) 07/16/2024 Pain in right foot (ICD-10 - M79.671) 07/16/2024 Tinea unguium (ICD-10 - B35.1) Plan Of Treatment Pending Test Test Name Order Date X ray : Foot, left 3V 11/27/2023 X ray : Foot, right 3V 11/27/2023 X ray : Foot, right 3V 07/16/2024 Next Appt Details Provider Name:Sis garcia, 12/30/2024 10:00:00 AM, [address] [place] [address], [phone], Insurance Providers Payer Name Payer Address Payer Phone Subscriber Number Group Number Insured Name Patient Relationship to Insured Coverage Start Date Coverage End Date Medicare National [facility] [employer] [address] [place] [address] [phone] [id number] Marielle Soria Self - patient is the insured [place] [address] [place] [address] [place] [phone] [id number] Marielle Soria Self - patient is the [...]
--- OUTSIDE RECORDS SUMMARY | 2024-12-02 08:47 | XMS_ITS ---
[facility] Name [facility] Care Team Organization Name Specialty Phone Email Start Date End [facility] 10/31/2024
--- OUTSIDE RECORDS SUMMARY | 2024-12-02 08:47 | XMS_ITS | Encounter Summary ---
Author Organization [facility] Address [address] [facility] [facility] [address] [place] [address] Phone Care Team Providers Care Tool Crib Clerk Name Role Phone Edward Geronimo MD Primary Care Provider Pcp, Not Required Primary Care Provider Unavaila ble Encounter Details Date Type Department Care Team (Late st Contact Info) Description 01/29/2023 Prep for Surgery [facility] Orthopedics & Sports Medicine [address] [place] [address] [phone] Jane Coon MD [address] [place] [address] Orthopedics & Sports Medicine, [facility] [place], [place] [id number] [email or web address] Social History Tobacco Use Types Packs/Day Years Used Date Smoking Tobacco: Former Smokeless Tobacco: Never Alcohol Use Standard Drinks/Week Comments No 0 (1 standard drink = 0.6 oz pur e alcohol) Education Answer Date Recorded Are you interested in more education? Not on des e 08/18/2022 Are you concerned about learning? Not on file 08/18/2022 No 08/18/2022 No 08/18/2022 Digital Access Answer Date Recorded No 09/18/2022 No 09/18/2022 Reliable internet access at home? Not on file 09/18/2022 Device with a working camera? Not on file Comments No Sex and Gender Information Value Date Recorded Sex Assigned at Female 12/13/2017 11:20 AM EDT Legal Sex Female 4:19 PM EST Gender Identity Female 12/13/2017 11:20 AM EDT Sexual Orientation Straight 12/13/2017 11 :20 AM EDT documented as of this encounter Plan of Treatment Upcoming Encounters Date Type Department Care Team (Late st Contact Info) Description 02/10/2025 7:30 AM EDT Office Visit [facility] [address] [place] [address] [address] Floor, [address] [place] [address] Kacey Garcia PA-C [address] [place] [address] [email or web address] documented as of this encounter Visit Diagnoses Not on filedocumented in this encounter Care Teams Tool Crib Clerk Relationship Specialty Start Date End Date Edward Geronimo MD [address] [place] [address] [address] PCP - General Internal Medicine 12/13/17 08/10/24 Pcp, Not Required [address] [place] [address] PCP - General 08/11/24 documented as of this encounter Additional Source Comments The information contained in this document represents components of the legal health record. It is not the complete legal health record.[facility]
--- OUTSIDE RECORDS SUMMARY | 2024-12-02 08:47 | XMS_ITS | Patient Health Record ---
Author Organization [facility] Address [address] [place] [address] Care Team Providers Care Black Leather Trimmer Name Role Phone Grazyna (RETIRED) Edward PAZ Primary Care Provide r Finn Hudson [phone] Allergies Allergen (clinical drug ingredient) Drug/Non Drug [...] (Not yet reviewed by provider) Interpretation: Performing Lab:[facility], [address] [place] [phone] Notes/Report: Reason For Referral No Information Medications [...] Status Risk Notes Problem Already on aspirin (292505713) Long-term (current) use of aspirin (V58.66) Active confirmed Problem Colon cancer screening (800055229) Colon cancer screening (V76.51) Active confirmed Problem Feces contents abnormal (073396371) Heme positive stool (792.1) Active confirmed Problem History of adenomatous polyp of colon (935792999) History of adenomatous polyp of colon (V12.72) Active confirmed Problem Nausea (310714482) Nausea (787.02) Active confirmed Problem Colon cancer screening (460929358) Colon cancer screening (Z12.11) Active confirmed Problem Screening for malignant neoplasm of colon (765841018) Encounter for screening for malignant neoplasm of colon (Z12.11) Active confirmed Problem Chronic constipation (640238504) Chronic constipation (K59.09) Active confirmed Vital Signs Temperature 98.6 degrees Fahrenheit 06/11/2024 Blood pressure diastolic 01 mm Hg 06/11/2024 Height 68 in 06/11/2024 Blood pressure systolic 001 mm Hg 06/11/2024 Weight 228 lbs 06/11/2024 BMI 34.66 kg/m2 06/11/2024 Encounters Encounter Location Date Provider Diagnosis [facility] [address] [place] [phone] 10/06/2024 Finn Maravilla Colon cancer screeni ng Z12.11 ; Colon polyps K63.5 ; Benign neoplasm of rectum D12.8 and Diverticulosis of large intestine without perforation or abscess without bleeding K57.30 [facility] [address] [place] [address] 06/11/2024 Finn aMravilla Chronic constipation K59.09 ; Encounter for screening for malignant neoplasm of colon Z12.11 and Colon cancer screening Z12.11 [facility] [address] [place] [address] 06/11/2024 Finn Maravilla [facility] [address] [place] [phone] 07/23/2024 Finn Maravilla [facility] [address] [place] [address] 09/19/2024 Finn Maravilla Assessments Encounter Date Diagnosis [...] new blood thinner for a stent. Have Waxing Machine Operator Helper adjust your Insulin pump for the [...] OF [place] [address] [place] [address] [id number] NOVATYRESECHIN CASTELLANOS Self - patient is the insured [address] [employer] [address] [place] [phone] [id number] NOVATYRESECHIN CASTELLANOS Self - patient is the insured Medical (General) History Medical History History ICD Code Hyperlipidema Denies CVA,Lung disease,renal disease [place] 2009-cardiac cath with [address]-fine since Colonoscopy 2000 with a tubu lar adenoma removed, and a F/U colonoscopy in 04/2006 neg except for a hyperplastic polyp EGD in 2000-small HH, no Bar rett's esophagus, biopsies negative for celiac disease Diabetes mellitus on diabetic pump [place] > 10 years ago -2 stents in RCA---[facility] Normal PFT's IDDM--on a pump Tachycardia [...]
== END 2024-12-02 09:06 | disposition home or self-care (01) ==
PROVIDERS: PCP Internal Medicine; Visit Provider Internal Medicine Endocrinology, Diabetes & Metabolism
DX: E11.40 Type 2 diabetes mellitus with diabetic neuropathy, unspecified (principal); Z79.4 Long term (current) use of insulin
CPT/HCPCS: 99214; G2211

== ENCOUNTER → 2024-12-02 08:29 | Outpatient (BNVA) | payer MEDICARE, OTHER, SELFPAY | PROVIDERS: PCP Internal Medicine; Visit Provider Physician Assistant Medical | DX: E11.40 Type 2 diabetes mellitus with diabetic neuropathy, unspecified (principal); Z79.4 Long term (current) use of insulin | CPT/HCPCS: 82947; 83036; 99212 ==

== ENCOUNTER 2025-03-02 09:09 | Outpatient (AMB) | payer MEDICARE, OTHER, SELFPAY ==
--- OUTSIDE RECORDS SUMMARY | 2019-10-16 14:42 | XMS_ITS | Encounter Summary ---
Author Organization [facility] Address [address] [facility] [address] [place] [phone] Phone Care Team Providers Care Aircraft Engine Dismantler Name Role Phone Edward Geronimo MD Primary Care Provider Encounter Details Date Type Department Care Team (Late st Contact Info) Description 10/16/2019 3:42 PM EDT Hospital Encounter [facility] [address] [place] [phone] Milli Phelps CNP [address] [place] [phone] [email or web address] Social History Tobacco Use Types Packs/Day Years Used Date Smoking Tobacco: Former Cigarettes Q uit: 2008 Passive Smoke Exposure: Never Smokeless Tobacco: Never Alcohol Use Standard Drinks/Week Comments Yes 0 (1 standard drink = 0.6 oz pur e alcohol) one drink every 1-2 months Education Answer Date Recorded Are you interested in more education? Not on des e 08/18/2022 Are you concerned about learning? Not on file 08/18/2022 No 08/18/2022 No 08/18/2022 Digital Access Answer Date Recorded No 09/18/2022 No 09/18/2022 Reliable internet access at home? Not on file 09/18/2022 Device with a working camera? Not on file Intimate Partner Violence Answer Date R ecorded Are you denied basic needs s uch as food, clothing, or medical care? No 02/16/2023 In the past 12 months have y ou been in a relationship with a person who hurts, threatens, or tries to control you? No 02/16/2023 Are you denied basic needs s uch as food, clothing, or medical care? No 02/16/2023 In the past 12 months have y ou been in a relationship with a person who hurts, threatens, or tries to control you? No 02/16/2023 Comments No Sex and Gender Information Value Date Recorded Sex Assigned at Female 12/13/2017 11:20 AM EDT Legal Sex Female 4:19 PM EST Gender Identity Female 12/13/2017 11:20 AM EDT Sexual Orientation Straight 12/13/2017 11 :20 AM EDT documented as of this encounter Functional Status * Calculated C-SSRS Risk Score (Lifetime/Recent) Answer Date of Assessment Author No Risk Indicated 03/24/2020 1:47 AM Jessica Cochran RN * Blair Suicide Severity Rating Scale (Screener/Recent Self-Report) Question Answer Date of Assessment Author 1. Wish to be (Past 1 Month) No 020 1:47 AM Jessica Cochran RN 2. Non-Specific Active Suici maria r Thoughts (Past 1 Month) No 03/24/2020 1:47 AM Jessica Cochran RN 6. Suicidal Behavior (Lifetime) No 0 1:47 AM Jessica Cochran RN documented as of this encounter Plan of Treatment Upcoming Encounters Date Type Department Care Team (Late st Contact Info) Description 08/11/2025 7:30 AM EDT Office Visit [facility] [address] [facility] 3rd Floor, [address] [place] [address] Kacey Garcia PA-C [address] [place] [phone] [email or web address] documented as of this encounter Procedures Procedure Name Priority Date/Time Associated Diagnosis Comments XR FOOT 3 OR MORE VIEWS (RIGHT) Urgent/patient waiting 10/16/2019 3:49 PM EDT Swelling of right foot documented in this encounter Results * XR FOOT 3 OR MORE VIEWS (RIGHT) (10/16/2019 3:49 PM EDT) Anatomical Region Laterality Modality Foot Right Radiographic Laure ging 10/16/2019 3:51 PM EDT Impressions 10/16/2019 3:54 PM EDT No acute pathology. Midfoot and first MTP osteoarthritis. Prominent calcaneal spurs. POS [id number] Narrative 10/16/2019 3:54 PM EDT 3 views. No comparison No evidence of trauma, tumor or infection Mild to moderate osteoarthritis in the first MTP joint. Mild osteoarthritis in the dorsal midfoot. No soft tissue masses, calcifications or foreign bodies are apparent Large plantar and moderate-sized posterior calcaneal spurs incidentally noted. Procedure Note Alex Stafford MD - 10/16/2019 3 views. No comparison No evidence of trauma, tumor or infection Mild to moderate osteoarthritis in the first MTP joint. Mild osteoarthritis in the dorsal midfoot. No soft tissue masses, calcifications or foreign bodies are apparent Large plantar and moderate-sized posterior calcaneal spurs incidentallynoted. IMPRESSION: No acute pathology. Midfoot and first MTP osteoarthritis. Prominentcalcaneal spurs. POS [id number] Milli Phelps ICT QUALITY ASSURANCE ENGINEER IMG XR LOWER EXTREMITY Carmen l Result documented in this encounter Visit Diagnoses Not on filedocumented in this encounter Care Teams Aircraft Engine Dismantler Relationship Specialty Start Date End Date Edward Geronimo MD [address] [place] [address] [place] [id number] PCP - General Internal Medicine 12/13/17 08/10/24 documented as of this encounter Additional Source Comments The information contained in this document represents components of the legal health record. It is not the complete legal health record.[facility]
--- OUTSIDE RECORDS SUMMARY | 2024-10-06 02:30 | XMS_ITS ---
Author Organization [facility] Address [address] [place] [address] Care Team Providers Care Photographic Aide Name Role Phone Grazyna (RETIRED) Edward PAZ Primary Care Provide r Finn Hudson [phone] REASON FOR VISIT screening Encounters Encounter Location Date Provider Diagnosis [facility] [address] [place] [phone] 10/06/2024 Finn Maravilla Colon cancer scree mamadou Z12.11 ; Colon polyps K63.5 ; Benign neoplasm of rectum D12.8 and Diverticulosis of large intestine without perforation or abscess without bleeding K57.30 Assessments Encounter Date Diagnosis (ICD Code) Assessment Notes Treatment Notes Treatment Clinical Notes Section Notes 10/06/2024 Colon cancer screening (ICD-10 - Z12.11) 10/06/2024 Colon polyps (ICD-10 - K63.5) 10/06/2024 Benign neoplasm of rectum (ICD-10 - D12.8) 10/06/2024 Diverticulosis of large intestine without perforation or abscess without bleeding (ICD-10 - K57.30) Plan Of Treatment No Information Progress Notes * CHIN BALBUENAOB:0 1955 (69 yo F)Acc No.[id number]:10/06/2024 COLON WITH MAC Patient: Ronald SHARP CHIN MENDEZ Provider: Wenceslao Maravilla MD :1955 A ge:69 Y S ex:Female Date:10/06/2024 Address:[id number] Pcp:Edward Geronimo (RETIRED )MD Subjective: * Chief Complaints: * 1 . Screening. * Medical History: Objective: * Vitals: Assessment: * Assessment: 1. C olon cancer screening - Z12.11 (Primary) 2 . C olon polyps - K63.5? 3. B enign neoplasm of rectum - D12.8 4 . D iverticulosis of large intestine without perforation or abscess without bleeding - K57.30 Plan: * Treatment: * Procedure Codes: 4 5385 LESION REMOVAL COLONOSCOPY, Modifiers: PT , 0529F INTRVL 3+YRS PTS CLNSCP DOCD, 0528F RCMND FLW-UP 10 YRS DOCD, Modifiers: 1P * * The named appointment provid er may or may not be the originator of this progress note, and it is not deemed complete until electronically signed by the appointment provider. Sign off status: Pending * Provider: Wenceslao Maravilla MD Date: 0 10/06/2024 Generated for Ayah perez/Suze/Mushtaqsmitting on: 05/02/2024 09:54 AM EST
--- NOTE | 2025-03-02 09:08 | A.OFFPC_ITS ---
Vital Signs 03/02/25 09:17 Height 5 ft 7.17 in Weight 97.069 kg BMI 33.3 BP 112/56 L Blood Pressure Location Rt brachial Position Sitting Respiration 18 Pulse 84 Pulse Source Pulse Oximeter Temp 97.6 F Temp Source Temporal Artery Scan Pulse Oximetry (%) 97 Oxygen Delivery Method Room Air Intake Visit Reasons: Routine /Dr Adams Sign Maker Required: No Accompanied by: Self / Same As Patient Allergies azithromycin (From ZITHROMAX) Allergy (Unknown, Verified 03/02/25 09:08) RASH bee pollen (BEE STINGS) Allergy (Unknown, Verified 03/02/25 09:08) ANAPHYLAXIS erythromycin base (ERYTHROMYCIN BASE) Allergy (Unknown, Verified 03/02/25 09:08) RASH morphine (MORPHINE) Allergy (Unknown, Verified 03/02/25 09:08) BRADYCARDIA, heart rate slows down neomycin Allergy (Unknown, Verified 03/02/25 09:08) adema amoxicillin (From Augmentin) Allergy (Verified 03/02/25 09:08) Swelling clavulanic acid (From Augmentin) Allergy (Verified 03/02/25 09:08) Swelling bees Allergy (Unknown, Uncoded 12/02/24 08:40) anaphylaxis Taurine Allergy (Unknown, Uncoded 12/02/24 08:40) hives Medication List - Last Reconciled 03/02/25 by DELANEY Chavez albuterol sulfate 90 mcg/actuation 2 puffs inhalation Q6-8H PRN aspirin (Adult Aspirin Regimen) 81 mg PO BEDTIME blood-glucose sensor ([employer] G6 Sensor device) As directed 1 every 10 days blood-glucose transmitter ([employer] G6 Transmitter device) As directed 1 every 3 months izxagzobwn-toamyyxdmwids-bzyk 50-300-40 mg 1 cap PO TID diltiazem HCl CD 360 mg PO BEDTIME epinephrine (EpiPen) 0.3 mg IM Q10M PRN gabapentin 900 mg (3 x 300 mg) PO BEDTIME insulin aspart U-100 up to 85 units via pump subcutaneously daily; 90 days MDD 80 units NS ivermectin 1% appl topical BID linaclotide (Linzess) 145 mcg PO DAILY lorazepam 0.5 mg PO BID PRN nitroglycerin 0.4 mg sublingual DIRECTED PRN nortriptyline 75 mg PO BEDTIME omeprazole 20 mg PO DAILY prochlorperazine maleate (Compazine) 10 mg PO Q8H PRN ropinirole 4 mg PO BEDTIME rosuvastatin 40 mg PO BEDTIME semaglutide (Ozempic) 1 mg (0.75 mL) subcut QWEEK 28 days subcutaneous insulin pump As directed Tandem Pump Tobacco use date assessed: 09/01/24 Dental Screening Dental Screen Date: 09/01/24 HPI HPI Comments History of Present Illness Details 69-year-old female with history of coron jennifer artery disease, type 2 diabetes, diabetic neuropathy, hyperlipidemia, GERD, osteopenia, vitamin-D deficiency presenting to the office today for management of chronic conditions. Prefers Lin. Type 2 diabetes-follows with Dr. Sales. Last A1c 5.4%. Utilizes insulin pump. Monitor his glucose levels with a continuous glucose monitor. Diabetic polyneuropathy-managed with gabapentin 900 mg at bedtime. On ozempic, does get side effects and will sometimes not take this. Occ lows CAD/HLD- h/o NSTEMI card cath RCA 2011. Kacey Garcia. Baby asa and diltiazem, rosuvastatin RLS- requip, hakeem, nortriptyline Migraines- fioricet prn, can be up to several months without. Compazine if needed Osteopenia-not taking calcium or vitamin-D. Walks, no other weight-bearing exercise Concerns: None Health Maintenance: Due for mammogram, last mammo 02/2024 Last DEXA scan 2022 Last colonoscopy 09/2024, 5 year follow-up ROS: General: No fevers, malaise, unintentional weight loss HEENT: No blurred vision, diplopia. No sore throat, nasal congestion, rhinorrhea, sinus pain, ear pain Cardiovascular: No chest pain, palpitations, or leg edema Respiratory: No shortness of breath, wheezing, cough GI: No abdominal pain, nausea, vomiting, diarrhea, constipation, melena, hematochezia : No dysuria, hematuria, increased urinary frequency, decreased urinary output MSK: No myalgia, back pain Neuro: No headaches, weakness, paresthesias Skin: No rashes or lesions EXAM: Constitutional - Awake and Alert, No apparent distress Eyes - PERRL Cardiovascular - S1S2, RRR, No edema Respiratory - Normal lung expansion, Normal respiratory effort, No respiratory distress, CTA bilaterally Extremities - no calf tenderness bilaterally, no swelling Skin - Warm/Dry Neurological - Alert & oriented x3 Psychological - Appropriate affect [facility] Medical History (Updated 03/02/25 @ 09:39 by DELANEY Chavez) Back pain Insulin pump in place Diarrhea Hiatal hernia GERD (gastroesophageal reflux disease) SOB (shortness of breath) Seasonal allergies Elevated cholesterol Obesity History of OR (myocardial infarction) (~2011) Personal history of nicotine dependence Tubular adenoma of colon (~2000) Vitamin D deficiency Hyperlipidemia LDL goal <70 Arthritis Neuropathy CAD (coronary artery disease) Type 2 diabetes mellitus with diabetic neuropathy, unspecified (~2004) Surgical History (Updated 02/27/25 @ 14:49 by Matilde Grant) History of total hip replacement History of carpal tunnel surgery of right wrist Hx of toe surgery History of esophagogastroduodenoscopy (EGD) History of bilateral breast reduction surgery History of tubal ligation History of foot surgery History of laparoscopic cholecystectomy History of heart artery stent History of colonoscopy (10/06/24) History of appendectomy Family History Father Diabetes mellitus CVD (cardiovascular disease) Mother Oral cancer Brother Diabetes mellitus Social History Household Members: Spouse Housing: House Are you a primary animal care technician to a significant other at home: No Do you presently have visiting nurse or other home services: No Patient Tobacco Use Status: Former Tobacco user Cigarette Packs Per Day: 1 Years Smoked: 25 e-Cigarette/Vaping Use: Former Use service: No Current occupational status: retired Cognitive needs: No Hearing needs: No Vision needs: Yes (rx glasses) Questionnaire Thrive Questionnaire Date Thrive assessed: 09/01/24 ALEX-7 AMB Questionnaire ALEX-7 Date ALEX - 7 assessed: 09/01/24 Source: Developed by Drs. Finn Dueñas, Alayna Hill, Matt Rodriguez and colleagues, with an educational juanita from [employer]. Physical exam (Primary Care) Vital Signs: Last Vital Signs Temp 97.6 F 03/02/25 09:17 Pulse 84 03/02/25 09:17 Resp 18 03/02/25 09:17 BP 112/56 L 03/02/25 09:17 Pulse Ox 97 03/02/25 09:17 Oxygen Delivery Method Room Air 03/02/25 09:17 BMI result Body Mass Index 33.3 Tobacco/Smoking Status: Tobacco use Status Tobacco use date assessed 09/01/24 03/02/25 09:09 Patient Tobacco Use Status Former Tobacco user 03/02/25 09:09 e-Cigarette/Vaping Use Former Use 03/02/25 09:09 Thrive Assessment: Date of Thrive Assessment Date Thrive assessed 09/01/24 03/02/25 09:09 Coding Level of Care Code Est Pt Level 4 (73593) Complex EM visit Add On G2211 Diagnoses Type 2 diabetes mellitus with diabetic neuropathy, with long-term current use of insulin E11.40; Z79.4 Diabetes mellitus superintendent container terminal insulin use: with custodial use Hyperlipidemia LDL goal <70 E78.5 Vitamin D deficiency E55.9 Osteopenia M85.80 Assessment & Plan Assessment & Plan (1) Type 2 diabetes mellitus with diabetic neuropathy, unspecified: Onset Date: ~2004 Comment: (IDDM2, with neuropathy) Code(s): E11.40 - Type 2 diabetes mellitus with diabetic neuropathy, unspecified Category: Medical Qualifiers: Diabetes mellitus custodial insulin use: with superintendent container terminal use Qualified Code(s): E11.40 - Type 2 diabetes mellitus with diabetic neuropathy, unspecified; Z79.4 - intermediate frame tender (current) use of insulin Plan: A1c ordered. Follow-up with endocrinology tomorrow as scheduled. Do recommend decreasing bolus dose of insulin via pump given A1c of 5.4%. Continue Ozempic. Continue with annual eye exams. Urine microalbumin up-to-date. Continue with diabetic diet when she has been compliant with thus far. (2) Hyperlipidemia LDL goal <70: Code(s): E78.5 - Hyperlipidemia, unspecified Category: Medical Plan: Lipid panel ordered. Continue rosuvastatin 40 mg nightly. (3) Vitamin D deficiency: Code(s): E55.9 - Vitamin D deficiency, unspecified Category: Medical Plan: Vitamin-D level ordered. (4) Osteopenia: Code(s): M85.80 - Other specified disorders of bone density and structure, unspecified site Category: Medical Plan: DEXA scan up-to-date, FRAX 10.1%. Recommend calcium and vitamin-D as well as increasing weight-bearing exercise. Will check vitamin-D levels. Plan Follow-up in the office in 6 months. Labs today as well as several days before next appointment. Orders: Orders Basic Metabolic Panel Today E11.40 - Type 2 diabetes mellitus with diabetic neuropathy, unspecified, E55.9 - Vitamin D deficiency, unspecified, E78.5 - Hyperlipidemia, unspecified, M85.80 - Other specified disorders of bone density and structure, unspecified site, Z79.4 - intermediate frame tender (current) use of insulin Lipid Panel Today E11.40 - Type 2 diabetes mellitus with diabetic neuropathy, unspecified, E55.9 - Vitamin D deficiency, unspecified, E78.5 - Hyperlipidemia, unspecified, M85.80 - Other specified disorders of bone density and structure, unspecified site, Z79.4 - intermediate frame tender (current) use of insulin Vitamin D 25-OH Total Today E11.40 - Type 2 diabetes mellitus with diabetic neuropathy, unspecified, E55.9 - Vitamin D deficiency, unspecified, E78.5 - Hyperlipidemia, unspecified, M85.80 - Other specified disorders of bone density and structure, unspecified site, Z79.4 - MCC (current) use of insulin Hemoglobin A1c Today E11.40 - Type 2 diabetes mellitus with diabetic neuropathy, unspecified, E55.9 - Vitamin D deficiency, unspecified, E78.5 - Hyperlipidemia, unspecified, M85.80 - Other specified disorders of bone density and structure, unspecified site, Z79.4 - MCC (current) use of insulin Liver Panel Today E11.40 - Type 2 diabetes mellitus with diabetic neuropathy, unspecified, E55.9 - Vitamin D deficiency, unspecified, E78.5 - Hyperlipidemia, unspecified, M85.80 - Other specified disorders of bone density and structure, unspecified site, Z79.4 - MCC (current) use of insulin Basic Metabolic Panel 6 Months E11.40 - Type 2 diabetes mellitus with diabetic neuropathy, unspecified, E78.5 - Hyperlipidemia, unspecified, I25.10 - Atherosclerotic heart disease of marshall coronary artery without angina pectoris, Z79.4 - intermediate frame tender (current) use of insulin Hemoglobin A1c 6 Months E11.40 - Type 2 diabetes mellitus with diabetic neuropathy, unspecified, E78.5 - Hyperlipidemia, unspecified, I25.10 - Atherosclerotic heart disease of marshall coronary artery without angina pectoris, Z79.4 - MCC (current) use of insulin Lipid Panel 6 Months E11.40 - Type 2 diabetes mellitus with diabetic neuropathy, unspecified, E78.5 - Hyperlipidemia, unspecified, I25.10 - Atherosclerotic heart disease of marshall coronary artery without angina pectoris, Z79.4 - MCC (current) use of insulin Medications: New albuterol sulfate 90 mcg/actuation 2 puffs inhalation Q6-8H PRN 17 grams 0RF Shortness Of Breath Or Wheezing Changed From lorazepam 0.5 mg PO BID 60 tabs 0RF To lorazepam Take as needed for flying 0.5 mg PO BID PRN
[2025-03-02 09:17] VITALS: BP 112/56; PULSE 84; RESP 18; TEMP 36.4; O2SAT 97; BMI 33.3
--- OUTSIDE RECORDS SUMMARY | 2025-03-02 09:53 | XMS_ITS | Encounter Summary ---
Author Organization [facility] Address [address] [facility] [address] [place] [address] Phone Care Team Providers Care Safe And Vault Service Mechanic Name Role Phone Edward Geronimo MD Primary Care Provider Pcp, Not Required Primary Care Provider Unavaila ble Encounter Details Date Type Department Care Team (Late st Contact Info) Description 01/29/2023 Prep for Surgery [facility]ics & Sports Medicine [address] [place] [address] [phone] Jane Coon MD [address] [place] [address] Orthopedics & Sports Medicine, [facility] [place], [place] [phone] [email or web address] Social History Tobacco Use Types Packs/Day Years [...] Description 08/11/2025 7:30 AM EDT Office Visit [facility] [address] [place] [address] [address]rd Floor, [address] [place] [address] Kacey Garcia PA-C [address] [place] [address] [email or web address] documented as of this encounter Visit Diagnoses Not on filedocumented in this encounter Care Teams Safe And Vault Service Mechanic Relationship Specialty Start Date End Date Edward Geronimo MD [address] [place] [address] [address] PCP - General Internal Medicine 12/13/17 08/10/24 Pcp, Not Required [address] [place] [address] PCP - General 08/11/24 documented as of this encounter Additional Source Comments The information contained in this document represents components of the legal health record. It is not the complete legal health record.[facility]
--- OUTSIDE RECORDS SUMMARY | 2025-03-02 09:53 | XMS_ITS | Patient Health Record ---
Author Organization [facility] Address [address] [place] [address] Care Team Providers Care Leather Parts Matcher Name Role Phone Grazyna (RETIRED) Edward PAZ Primary Care Provide r Finn Hudson [phone] Allergies Allergen (clinical drug ingredient) Drug/Non Drug [...] Results Component Value Reference Range Notes Pathology Reviewed date:02/25/2025 06:01:00 PM Interpretation: Performing Lab:[facility], [address] [place] [phone] Notes/Report: Reason For Referral No Information Medications Medication SIG (Take, Route, Frequency, Duration) Notes Start Date End Date Status Linzess 145 MCG TAKE 1 CAPSULE EVERY DAY AT LEAST 30 MINUTES BEFORE THE FIRST MAIN MEAL OF THE DAY ON EMPTY STOMACH; Duration: 30 Active Rosuvastatin Calcium 40 MG 1 tablet Oral [...] Atenolol 75mg Active Nortriptyline HCl 75mg Active Gabapentin 300mg Act bryson PriLOSEC 20mg qd Active Immunizations Vaccine Route Administration Date Status Comme nts Influenza Unknown 06/13/2023 Administered Problems Problem Type SNOMED Code ICD Code Onset Dates Problem Status W/U Status Risk Notes Problem Already on aspirin (551894606) Long-term (current) use of aspirin (V58.66) Active confirmed Problem Colon cancer screening (584010266) Colon cancer screening (V76.51) Active confirmed Problem Feces contents abnormal (663266682) Heme positive stool (792.1) Active confirmed Problem History of adenomatous polyp of colon (105072737) History of adenomatous polyp of colon (V12.72) Active confirmed Problem Nausea (568728173) Nausea (787.02) Active confirmed Problem Colon cancer screening (933820269) Colon cancer screening (Z12.11) Active confirmed Problem Screening for malignant neoplasm of colon (733975038) Encounter for screening for malignant neoplasm of colon (Z12.11) Active confirmed Problem Chronic constipation (371758798) Chronic constipation (K59.09) Active confirmed Vital Signs Temperature 98.6 degrees Fahrenheit 06/11/2024 Blood pressure diastolic 01 mm Hg 06/11/2024 Height 68 in 06/11/2024 Blood pressure systolic 001 mm Hg 06/11/2024 Weight 228 lbs 06/11/2024 BMI 34.66 kg/m2 06/11/2024 Encounters Encounter Location Date Provider Diagnosis [facility] [address] [place] [address] [phone] 10/06/2024 Finn Maravilla Colon cancer screeni ng Z12.11 ; Colon polyps K63.5 ; Benign neoplasm of rectum D12.8 and Diverticulosis of large intestine without perforation or abscess without bleeding K57.30 [facility] [address] [place] [address] 06/11/2024 Finn Maravilla Chronic constipation K59.09 ; Encounter for screening for malignant neoplasm of colon Z12.11 and Colon cancer screening Z12.11 [facility] [address] [place] [address] 06/11/2024 Finn Maravilla [facility] [address] [place] [phone] 07/23/2024 Finn Maravilla [facility] [address] [place] [address] 09/19/2024 Finn Maravilla Assessments Encounter Date Diagnosis [...] new blood thinner for a stent. Have Watch Repairer Apprentice adjust your Insulin pump for the two [...] OF [place] [address] [place] [address] [id number] NOVATYRESECHIN CASTELLANOS Self - patient is the insured [address] [employer] [address] [address] [place] [id number] NOVATYRESECHIN CASTELLANOS Self - patient is the insured Medical (General) History Medical History History ICD Code Hyperlipidema Denies CVA,Lung disease,renal disease SD 2009-cardiac cath with [address]-fine since Colonoscopy 2000 with a tubu lar adenoma removed, and a F/U colonoscopy in 04/2006 neg except for a hyperplastic polyp EGD in 2000-small HH, no Bar rett's esophagus, biopsies negative for celiac disease Diabetes mellitus on diabetic pump SD > 10 years ago -2 stents in RCA---[facility]16/[facility] Normal PFT's IDDM--on a pump Tachycardia 2 negative colonoscopies in 2013 but could not completely the enter cecum. [...]
--- OUTSIDE RECORDS SUMMARY | 2025-03-02 09:55 | XMS_ITS | Encounter Summary ---
Author Organization [facility] Address [address] [place] [address] Care Team Providers Care Community Engagement Coordinator Name Role Phone Unavailable Primary Care Provider Unavailabl e Encounter Details Date Type Department Care Team (Late st Contact Info) Description 11/19/2024 Scanned Document [facility] ORTHO SURGERY SCAN Orthopedic Surgery, Scan Social History Tobacco Use Types Packs/Day Years Used Date Smoking Tobacco: Never Assessed Comments Unknown Sex and Gender Information Value Date Recorded Sex Assigned at Not on file Legal Sex Female 7:06 PM EST Gender Identity Not on file Sexual Orientation Not on file documented as of this encounter Plan of Treatment Not on file documented as of this encounter Visit Diagnoses Not on filedocumented in this encounter
--- OUTSIDE RECORDS SUMMARY | 2025-03-02 09:55 | XMS_ITS | Encounter Summary ---
Author Organization [facility] Address [address] [employer] [facility] [address] [place] [address] Phone Care Team Providers Care Bulwark Carpenter Name Role Phone Edward Geronimo MD Primary Care Provider Pcp, Not Required Primary Care Provider Unavaila ble Encounter Details Date Type Department Care Team (Late st Contact Info) Description 12/13/2017 Procedure Pass [facility], [address] [address] Social History Tobacco Use Types Packs/Day Years Used Date Smoking Tobacco: Never Smokeless Tobacco: Never Alcohol Use Standard Drinks/Week Comments No 0 (1 standard drink = 0.6 oz pur e alcohol) Comments Unknown Sex and Gender Information Value [...] Description 08/11/2025 7:30 AM EDT Office Visit [facility] [address] [place] [address] [address] Floor, [address] [place] [address] Kacey Garcia PA-C [address] [place] [phone] [email or web address] documented as of this encounter Visit Diagnoses Not on filedocumented in this encounter Additional Health Concerns Infection Onset Date Last Indicated Resolved Time CoV-Risk 08/30/2019 08/30/2019 09/13/2019 1:23 AM EDT documented as of this encounter Care Teams Bulwark Carpenter Relationship Specialty Start Date End Date Edward Geronimo MD [address] [place] [address] [place] [address] PCP - General Internal Medicine 12/13/17 08/10/24 Pcp, Not Required [address] [place] [address] PCP - General 08/11/24 documented as of this encounter Additional Source Comments The information contained in this document represents components of the legal health record. It is not the complete legal health record.[facility]
--- OUTSIDE RECORDS SUMMARY | 2025-03-02 09:55 | XMS_ITS | Encounter Summary ---
Author Organization [facility] Address [address] [facility] [address] [place] [address] Phone Care Team Providers Care Talent Coordinator Name Role Phone Edward Geronimo MD Primary Care Provider Pcp, Not Required Primary Care Provider Unavaila ble Encounter Details Date Type Department Care Team (Late st Contact Info) Description 12/13/2017 Procedure Pass [facility], Ct Scan - [address] [phone] Social History Tobacco Use Types Packs/Day Years [...] Description 08/11/2025 7:30 AM EDT Office Visit [facility] [address] [place] [address] [address] Floor, [address] [place] [address] Kacey Garcia PA-C [address] [place] [phone] [email or web address] documented as of this encounter Visit Diagnoses Not on filedocumented in this encounter Additional Health Concerns Infection Onset Date Last Indicated Resolved Time CoV-Risk 08/30/2019 08/30/2019 09/13/2019 1:23 AM EDT documented as of this encounter Care Teams Talent Coordinator Relationship Specialty Start Date End Date Edward Geronimo MD [address] [place] [address] [place] [address] PCP - General Internal Medicine 12/13/17 08/10/24 Pcp, Not Required [address] [place] [address] PCP - General 08/11/24 documented as of this encounter Additional Source Comments The information contained in this document represents components of the legal health record. It is not the complete legal health record.[facility]
--- OUTSIDE RECORDS SUMMARY | 2025-03-02 09:55 | XMS_ITS | Encounter Summary ---
Author Organization [facility] Address [address] [place] [phone] Care Team Providers Care Blind Eyeletter Name Role Phone Unavailable Primary Care Provider Unavailabl e Encounter Details Date Type Department Care Team (Late st Contact Info) Description 10/31/2024 Scanned Document [facility] ORTHO SURGERY SCAN Orthopedic Surgery, Scan Social [...]
--- OUTSIDE RECORDS SUMMARY | 2025-03-02 09:55 | XMS_ITS | Encounter Summary ---
Author Organization [facility] Address [address] [employer] [facility] [address] [place] [address] Phone Care Team Providers Care Hoop Riveter Name Role Phone Edward Geronimo MD Primary Care Provider Pcp, Not Required Primary Care Provider Unavaila ble Encounter Details Date Type Department Care Team (Late st Contact Info) Description 02/16/2023 Procedure Pass [place] Admitting Dept - Virtual Department [address] [place], [place] [phone] Social History Tobacco Use Types Packs/Day Years [...] Description 08/11/2025 7:30 AM EDT Office Visit [facility] [address] [place] [address] [address]rd Floor, [address] [place] [address] Kacey Garcia PA-C [address] [place] [phone] [email or web address] documented as of this encounter Visit Diagnoses Not on filedocumented in this encounter Care Teams Hoop Riveter Relationship Specialty Start Date End Date Edward Geronimo MD [address] [place] [address] [address] PCP - General Internal Medicine 12/13/17 08/10/24 Pcp, Not Required [address] [place] [address] PCP - General 08/11/24 documented as of this encounter Additional Source Comments The information contained in this document represents components of the legal health record. It is not the complete legal health record.[facility]
--- OUTSIDE RECORDS SUMMARY | 2025-03-02 09:55 | XMS_ITS | Clinical Summary ---
Author Organization [facility] Address [address] [place] [address] Care Team Providers Care Community Music Therapist Name Role Phone Unavailable Primary Care Provider Unavailabl e Encounters Date Type Department Care Team Description 12/16/2024 Scanned Document [facility] ORTHO SURGERY SCAN Orthopedic Surgery, Scan [...] Health Maintenance Due Date Last Done Comments Advance Care Planning 1955 Hepatitis C Virus Screening 1955 DTaP/Tdap/Td Vaccines (1 - Tdap) 1973 Pneumococcal Vaccines 50+ (1 of 1 - PCV) 2004 Zoster (Shingles) Vaccine (1 of 2) 2004 COVID-19 Vaccine ( - 2023-2 5 season) 2024 RSV Vaccine 50 years and old er and Patients (1 - 1-dose 75+ series) 2029 Hepatitis B Vaccines Aged Out No long er eligible based on patient's age to complete this topic
--- OUTSIDE RECORDS SUMMARY | 2025-03-02 09:55 | XMS_ITS | Encounter Summary ---
Author Organization [facility] Address [address] [place] [address] Care Team Providers Care Blister Pack Operator Name Role Phone Unavailable Primary Care Provider Unavailabl e Encounter Details Date Type Department Care Team (Late st Contact Info) Description 12/16/2024 Scanned Document [facility] ORTHO SURGERY SCAN Orthopedic Surgery, [...]
--- OUTSIDE RECORDS SUMMARY | 2025-03-02 09:56 | XMS_ITS | Patient Health Record ---
Author Organization [facility] Address [address] [place] [address] Care Team Providers Care Plate Former Name Role Phone Aquilino Vo Primary Care Provider [phone] Sis Loaiza Unavailable [phone] Allergies Allergen (clinical drug ingredient) Drug/Non Drug [...] Active Ozempic Not-Taking PriLOSEC Active Mounjaro Not-Taking Nortriptyline HCl Ac tive Rosuvastatin Calcium Active rOPINIRole HCl Activ e [...] Problem Acquired hammer toe of right foot (0140473903162160 ) Other hammer toe(s) (acquired), right foot (M20.41) Active confirmed Problem Acquired hammer toe of left foot (2008549608920123 ) Other hammer toe(s) (acquired), left foot (M20.42) Active confirmed Problem Plantar wart (78807902) Plantar wart (B07.0) Active confirmed Problem Polyneuropathy due to type 2 diabetes mellitus (364482678) Type 2 diabetes mellitus with diabetic polyneuropathy (E11.42) Active confirmed Problem Neuropathic ulce r of toe of left foot, limited to breakdown of skin (L97.521) Active confirmed Problem Neuropathic ulce r of toe of right foot, limited to breakdown of skin (L97.511) Active confirmed Vital Signs Blood pressure diastolic 70 mm Hg 12/30/2024 Height 5ft8in in 12/30/2024 Blood pressure systolic 121 mm Hg 12/30/2024 Weight 216 lbs 12/30/2024 BMI 32.84 kg/m2 12/30/2024 Encounters Encounter Location Date Provider Diagnosis [facility] [address] [place] [address] 05/07/2024 Sis Loaiza Other hammer toe(s) (acquired), left foot M20.42 ; Other hammer toe(s) (acquired), right foot M20.41 ; Type 2 diabetes mellitus with diabetic polyneuropathy E11.42 ; Neuropathic ulcer of toe of right foot, limited to breakdown of skin L97.511 and Xerosis of skin L85.[address] [address] 07/16/2024 Sis Loaiza Other hammer toe(s) (acquired), right foot M20.41 ; Hallux limitus of right foot M20.5X1 ; Other hammer toe(s) (acquired), left foot M20.42 ; Type 2 diabetes mellitus with diabetic polyneuropathy E11.42 ; Neuropathic ulcer of toe of right foot, limited to breakdown of skin L97.511 ; Pain in right foot M79.671 and Tinea unguium B35.[address] [address] 10/08/2024 Sis Loaiza Type 2 diabetes mellitus with diabetic polyneuropathy E11.42 ; Plantar wart B07.0 and Toe pain, right M79.[address] [address] 12/30/2024 Sis Loaiza Type 2 diabetes mellitus with diabetic polyneuropathy E11.42 ; Plantar wart B07.0 ; Toe pain, right M79.674 and Tinea unguium B35.1 Assessments Encounter Date Diagnosis (ICD Code) Assessment Notes Treatment Notes Treatment Clinical Notes Section Notes 05/07/2024 Other hammer toe(s) (acquired), right foot (ICD-10 - M20.41) 05/07/2024 Other hammer toe(s) (acquired), left foot (ICD-10 - M20.42) 07/16/2024 Other hammer toe(s) (acquired), right foot (ICD-10 - M20.41) 10/08/2024 Plantar wart (ICD-10 - B07.0) 10/08/2024 Type 2 diabetes mellitus with diabetic polyneuropathy (ICD-10 - E11.42) 07/16/2024 Hallux limitus of right foot (ICD-10 - M20.5X1) 12/30/2024 Type 2 diabetes mellitus with diabetic polyneuropathy (ICD-10 - E11.42) 12/30/2024 Toe pain, right (ICD-10 - M79.674) 10/08/2024 Toe pain, right (ICD-10 - M79.674) 12/30/2024 Plantar wart (ICD-10 - B07.0) 07/16/2024 Other hammer toe(s) (acquired), left foot (ICD-10 - M20.42) 05/07/2024 Type 2 diabetes mellitus with diabetic polyneuropathy (ICD-10 - E11.42) 07/16/2024 Type 2 diabetes mellitus with diabetic polyneuropathy (ICD-10 - E11.42) 05/07/2024 Neuropathic ulcer of toe of right foot, limited to breakdown of skin (ICD-10 - L97.511) 12/30/2024 Tinea unguium (ICD-10 - B35.1) 07/16/2024 Neuropathic ulcer of toe of right [...] 07/16/2024 Next Appt Details Provider Name:Sis garcia, 03/13/2025 01:15:00 PM, [address] [place], [address], Insurance Providers Payer Name Payer Address Payer Phone Subscriber Number Group Number Insured Name Patient Relationship to Insured Coverage Start Date Coverage End Date Medicare [facility] [address] [place] [address] [phone] [id number] Marielle Soria Self - patient is the insured [facility] [address] [place] [address] [phone] [id number] Marielle Soria Self - patient is the insured Medical (General) History Medical History History ICD Code Angina Arthritis Back,Hip,and Knee pain CAD (Cholesterol) Cataracts covid-19 Diabetic Gall bladder problems Glaucoma Headaches/Migraines Heart disease Numbness Poor circulation Reflux ( GERD) Sciatica Measles Mumps Chicken pox Plantar fasciitis Surgical History Surgery Date(Month/Year) Stent breast reduction foot surgery colonoscopy 10/15 left hip replacement 12/15
--- OUTSIDE RECORDS SUMMARY | 2025-03-02 09:56 | XMS_ITS | Encounter Summary ---
Author Organization [facility] Address [address] [facility] [address] [place] [address] Phone Care Team Providers Care Sill Worker Name Role Phone Edward Geronimo MD Primary Care Provider Pcp, Not Required Primary Care Provider Unavaila ble Encounter Details Date Type Department Care Team (Late st Contact Info) Description 03/24/2020 Procedure Pass [facility], Ct Scan - [address] [address] Social History Tobacco Use Types Packs/Day Years [...] 03/24/2020 1:47 AM Jessica Cochran RN * [place] Suicide Severity Rating Scale (Screener/Recent Self-Report) Question Answer Date of Assessment Author 1. Wish to be (Past 1 Month) No 020 1:47 AM EST Shorty, Jessica, RN 2. Non-Specific Active Suici maria r Thoughts (Past 1 Month) No 03/24/2020 1:47 AM Jessica Cochran , LEDY 6. Suicidal Behavior (Lifetime) No 0 1:47 AM Jessica Cochran, RN documented as of this encounter Plan of Treatment Upcoming Encounters Date Type Department Care Team (Late st Contact Info) Description 08/11/2025 7:30 AM EDT Office Visit [facility] [address] Floor, [address] [place] [address] Kacey Garcia PA-C [address] [place] [address] [email or web address] documented as of this encounter Visit Diagnoses Not on filedocumented in this encounter Care Teams Sill Worker Relationship Specialty Start Date End Date Edward Geronimo MD [address] [place] [address] [address] PCP - General Internal Medicine 12/13/17 08/10/24 Pcp, Not Required [address] [place] [address] PCP - General 08/11/24 documented as of this encounter Additional Source Comments The information contained in this document represents components of the legal health record. It is not the complete legal health record.[facility]
--- OUTSIDE RECORDS SUMMARY | 2025-03-02 09:56 | XMS_ITS | Encounter Summary ---
Author Organization [facility] Address [address] [facility] [address] [place] [address] Phone Care Team Providers Care Electrifier Operator Name Role Phone Edward Geronimo MD Primary Care Provider Pcp, Not Required Primary Care Provider Unavaila ble Encounter Details Date Type Department Care Team (Late st Contact Info) Description 11/18/2019 Procedure Pass [facility], [address] [address] Social History Tobacco Use Types Packs/Day Years [...] AM EDT documented as of this encounter Last Filed Vital Signs Vital Sign Reading Time Taken Comments Blood Pressure - - Pulse - - Temperature - - Respiratory Rate - - Oxygen Saturation - - Inhaled Oxygen Concentration - - Weight 102.1 kg (225 lb) 11/19/2019 12:59 PM EDT Height 172.7 cm (5' 8 ) 11/19/2019 12:59 PM EDT Body Mass Index 34.21 11/19/2019 12:59 PM EDT documented in this encounter Plan of Treatment Upcoming Encounters Date Type Department Care Team (Late st Contact Info) Description 08/11/2025 7:30 AM EDT Office Visit [facility] [address] [place] [address] [address] Floor, [address] [place] [address] Kacey Garcia PA-C [address] [place] [phone] [email or web address] documented as of this encounter Visit Diagnoses Not on filedocumented in this encounter Care Teams Electrifier Operator Relationship Specialty Start Date End Date Edward Geronimo MD [address] [place] [address] [address] PCP - General Internal Medicine 12/13/17 08/10/24 Pcp, Not Required [address] [place] [address] PCP - General 08/11/24 documented as of this encounter Additional Source Comments The information contained in this document represents components of the legal health record. It is not the complete legal health record.[facility]
--- OUTSIDE RECORDS SUMMARY | 2025-03-02 09:56 | XMS_ITS | Encounter Summary ---
Author Organization [facility] Address [address] [facility] [address] [place] [address] Phone Care Team Providers Care Roll Skinner Name Role Phone Edward Geronimo MD Primary Care Provider Pcp, Not Required Primary Care Provider Unavaila ble Encounter Details Date Type Department Care Team (Late st Contact Info) Description 11/19/2023 Procedure Pass [facility] [place] [address] Social History Tobacco Use Types Packs/Day Years [...] Description 08/11/2025 7:30 AM EDT Office Visit [facility] [address] [place] [address] [address] Floor, [address] [place] [address] Kacey Garcia PA-C [address] [place] [address] [email or web address] documented as of this encounter Visit Diagnoses Not on filedocumented in this encounter Care Teams Roll Skinner Relationship Specialty Start Date End Date Edward Geronimo MD [address] [place] [address] [address] PCP - General Internal Medicine 12/13/17 08/10/24 Pcp, Not Required [address] [place] [address] PCP - General 08/11/24 documented as of this encounter Additional Source Comments The information contained in this document represents components of the legal health record. It is not the complete legal health record.[facility]
--- OUTSIDE RECORDS SUMMARY | 2025-03-02 09:57 | XMS_ITS | Clinical Summary ---
Author Organization [facility] Address [address] [facility] [address] [place] [phone] Phone Care Team Providers Care Greens Tier Name Role Phone Pcp, Not Required Primary Care Provider Unavaila ble Allergies Active Allergy Reactions Criticality Noted Date Comments Amoxicillin-Pot Clavulanate Swelling 12/13/2017 Other reaction(s): Hives Azithromycin Rash Low 12/13/2017 Other reaction(s): Hives Morphine Other (See Comments) 12/13/2017 Loss of consciousness Other reaction(s): BP -low HR-low passed out Venom-Honey Bee 10/30/2022 Other reaction(s): Anaphylaxis Mixed Vespid Venom Anaphylaxis High 12/13/2017 Medications HUMALOG U-100 INSULIN 100 unit/mL injection vial 3 (three) times a day before meals. Active gabapentin (NEURONTIN) 300 MG capsule 300 mg 3 (three) times a day. Active nortriptyline (PAMELOR) 75 MG capsule Take 75 mg by mouth nightly. Active aspirin 81 MG EC tablet 81 mg daily. Active rOPINIRole (REQUIP) 4 MG tablet Take 4 mg by mouth nightly at bedtime. at bedtime. 3 09/06/19 Active rosuvastatin (CRESTOR) 40 MG tablet Take 40 mg by mouth daily. 3 09/06/19 Active prochlorperazin e (COMPAZINE) 10 MG tablet TAKE 1 TABLET BY MOUTH EVERY 8 HOURS NEEDED 1 06/18/19 19 Active omeprazole (PRILOSEC) 20 MG capsule TAKE 1 CAPSULE BY MOUTH DAILY 1 HOUR BEFORE MEALS 3 09/06/19 19 Active cholecalciferol (VITAMIN D3) 2,000 unit capsule TAKE 1 CAPSULE BY MOUTH ONCE A DAY 08/25/19 Active EPINEPHrine 0.3 mg/0.3 mL auto-injector INJECT 2 PEN INJECTOR INTRAMUSCULARLY SINGLE DOSE NEEDED 02/18/20 Active NOVOLOG U-100 INSULIN ASPART 100 unit/mL injection vial 03/05/20 23 Active albuterol 90 mcg/actuation inhaler 2 puffs every 4 (four) hours as needed. 10/21/19 24 Active senna 8.6 mg tablet Take 4 tablets by mouth as needed. Active LORazepam (ATIVAN) 0.5 MG tablet TAKE 1 TO 2 TABLETS BY MOUTH BEFORE FLYING 05/13/19 25 Active nitroglycerin (NITROSTAT) 0.[address] 1 tablet (0.4 mg total) under the tongue every 5 (five) minutes as needed for chest pain. 30 tablet 1 06/03/19 25 Active LINZESS 145 mcg Cap Take 145 mcg by mouth daily before breakfast. 06/19/19 25 Active semaglutide (OZEMPIC) 1 mg/dose (4 mg/3 mL) subcutaneous injection pen Inject 1 mg under the skin every 7 days. Active dilTIAZem (CARDIZEM CD) 360 MG 24 hr capsuleIndicati ons:Medication refill Take 1 capsule (360 mg total) by mouth daily. 90 capsule 3 02/11/20 25 Active dilTIAZem (CARDIZEM CD) 360 MG 24 hr capsuleIndicati ons:Medication refill Take 1 capsule (360 mg total) by mouth daily. 90 capsule 3 04/24/19 25 025 Discontin ued(Refort yates hospital) Hospital, Clinic, or Other Facility Administered Medication Ordered Dose Route Frequency Start Date End Date Status lidocaine (XYLOCAINE) 1% injection 2 mL 2 mL See Adm Inst See admin instructions 12/10/2023 Active triamcinolone acetonide (KENALOG-40) 40 mg/mL injection 40 mg 40 mg IM See admin instructions 12/10/2023 Active Active Problems Problem Noted Date Diagnosed Date Atherosclerosis of [place] co ronary artery of [place] heart without angina pectoris 06/03/2024 Assessment & Plan (02/10/2025 8:12 AM EDT): history of CAD status post PCI and stent x 2 to the RCA 06/24/2009. Has historically done well since, But due to newly endorsed dyspnea, we updated nuclear stress test and then cardiac catheterization was completed 06/17/2024, as follows- Normal LV function Normal LVEDP Some mild disease in the LAD 30%, D1 has moderate 55% stenosis proximally No significant stenosis in the circumflex Proximal RCA stent is patent with some mild disease of mid 35% No clear culprit for symptoms Diagonal branch moderately diseased but similar to prior Continue aspirin lifelong, optimize risk factors. Follow-up with cyber defense forensics analyst and top and seat cover fitter. Patient denies any angina. States breathing is stable. She recently had a pulmonary workup with [facility] and was told that there is no current pulmonary culprit for dyspnea, normal PFTs. Previously reviewed recent echo which shows normal EF and no significant valvular heart disease. Continue additional medical therapy. Continue aspirin lifelong. We will continue current dose of diltiazem 360 mg. Continue to optimize cardiovascular risk factors. Follow-up in 6 months Assessment & Plan (08/11/2024 5:22 PM EDT): history of CAD status post PCI and stent x 2 to the RCA 06/24/2009. Has historically done well since, But due to newly endorsed dyspnea, we updated nuclear stress test and then cardiac catheterization was completed 06/17/2024, as follows- Normal LV function Normal LVEDP Some mild disease in the LAD 30%, D1 has moderate 55% stenosis proximally No significant stenosis in the circumflex Proximal RCA stent is patent with some mild disease of mid 35% No clear culprit for symptoms Diagonal branch moderately diseased but similar to prior Continue aspirin lifelong, optimize risk factors. Follow-up with cyber defense forensics analyst and top and seat cover fitter. Symptoms are unchanged today. She recently had a pulmonary workup with [facility] and was told that there is no current pulmonary culprit, normal PFTs. Also reviewed recent echo which shows normal EF and no significant valvular disease. Continue additional medical therapy. Continue aspirin lifelong. We will continue current dose of diltiazem 360 mg daily for now, patient does have some mild lower extremity edema which may be exacerbated by the higher dose of CCB, but for now, we are going to leave. Continue optimize cardiovascular risk factors. Meds reviewed. Assessment & Plan (06/03/2024 4:46 PM EST): history of CAD status post PCI and stent x 2 to the RCA 06/24/2009. Has historically done well since. Patient is now endorsing some pretty significant shortness of breath which I am worried is an anginal equivalent. She recently had a pulmonary workup with [facility] and was told that there is no current pulmonary culprit, normal PFTs. Also reviewed recent echo which shows normal EF and no significant valvular disease. Previous nuclear stress test 11/2023 does show mild ischemia, partially reversible defects. We are going to schedule her for a cardiac catheterization with Dr. Mae, patient prefers [facility]. Continue aspirin lifelong. Continue statin. Sublingual nitro sent to pharmacy for as needed use in the interim. We will continue current dose of diltiazem 360 mg daily for now, patient does have some mild lower extremity edema which may be exacerbated by the higher dose of CCB, but for now, we are going to leave current dose until cath Completed. To be scheduled. Follow-up thereafter. Continue optimize cardiovascular risk factors. Benign essential hypertension 06/03/2024 Assessment & Plan (02/10/2025 8:13 AM EDT): Well-controlled in the office today on diltiazem 360 mg daily. Patient has also lost over 20 pounds with assistance of GLP-1. Continue lifestyle measures. Labs up-to-date. Follow-up in 6 months. Assessment & Plan (08/11/2024 5:22 PM EDT): At goal in the office today. Continue current meds and doses. Assessment & Plan (06/03/2024 4:44 PM EST): Adequately controlled on diltiazem 360 mg daily. Lifestyle modifications. Continue to follow. Other hyperlipidemia 06/03/2024 Assessment & Plan (02/10/2025 8:13 AM EDT): Continue rosuvastatin 40 mg daily. States has had labs through PCP so we will request lipid panel/LFTs. LDL goal less than 70. Assessment & Plan (08/11/2024 5:23 PM EDT): Continue rosuvastatin 40 mg daily. Assessment & Plan (06/03/2024 4:44 PM EST): Continue rosuvastatin 40 mg daily. Right carpal tunnel syndrome 01/30/2023 Overview (01/30/2023): Surgery scheduled R then L Postmenopausal bleeding 01/30/2023 Overview (01/30/2023): EM 4.4 mm on US with possible submucous fibroid. Endometrial biopsy performed 01/30/2023 Toe dislocation, right, subsequent encounter 08/2019 Diabetes mellitus Assessment & Plan (02/10/2025 8:14 AM EDT): Most recent A1c 5.1. Congratulated. Assessment & Plan (12/13/2017 2:23 PM EDT): Reported from the city and metformin. Continue Lantus, prandial and sliding scale insulin. Hemoglobin A1c has been added to current labs to assess glycemic control. Resolved Problems Problem Noted Date Diagnosed Date Resolved Date Syncope and collapse 12/13/2017 020 Assessment & Plan (12/13/2017 2:23 PM EDT): In the differential are an acute neurologic event such as stroke and possible cardiac issues, dysrhythmia or myocardial infarction. She is currently asymptomatic. She has no neurologic deficits though reports feeling somewhat fuzzy in the head. I have ordered an MRI of the brain for further evaluation. She will be monitored on telemetry, serial enzymes will be followed. An echocardiogram and a cardiology consultation has been requested. She was unsure of her dose of Cardizem which is listed as 60 daily. She will verify the dose at which time this medication should be ordered. Encounters Date Type Department Care Team Description 02/10/2025 7:30 AM EDT Office Visit [facility] [address], [address] [place] [address] Kacey Garcia, JOSHUA Atherosclerosis of [place] coronary artery of [place] heart without angina pectoris (Primary Dx); Medication refill; Benign essential hypertension; Other hyperlipidemia; Type 2 diabetes mellitus with diabetic polyneuropathy, without long-term current use of insulin from Last 3 Months Immunizations Immunization Administration Dates Next Due COVID-19 (Pre-02/12) Moderna Vaccine, mRNA, PF 0 06/09/2020,05/11/2020 Tdap 10/25/2022 Family History Medical History Relation Comments Diabetes Brother 1 Diabetes Brother 2 Diabetes Father Relation Status Comments Brother 1 Alive Brother 2 Alive Father Mother Alive Social History Tobacco Use Types Packs/Day Years Used Date Smoking Tobacco: Former Cigarettes Q uit: 2007 Passive Smoke Exposure: Never Smokeless Tobacco: Never Tobacco Cessation:Counseling Given: Not Answered Alcohol Use Standard Drinks/Week Comments Yes 0 [...] Orientation Straight 12/13/2017 11 :20 AM EDT Last Filed Vital Signs Vital Sign Reading Time Taken Comments Blood Pressure 122/76 02/10/2025 7:36 AM EDT Pulse 77 02/10/2025 7:36 AM EDT Temperature 36.5 C (97.7 F) 03/27/2023 4:29 PM EST Respiratory Rate 18 03/27/2023 4:29 PM EST Oxygen Saturation 97% 02/10/2025 7:36 AM EDT Inhaled Oxygen Concentration - - Weight 98 kg (216 lb) 02/10/2025 7:36 AM EDT Height 172.7 cm (5' 7.99 ) 02/10/2025 7:36 AM ED T Body Mass Index 32.85 02/10/2025 7:36 AM EDT Plan of Treatment Upcoming Encounters Date Type Department Care Team (Late st Contact Info) Description 08/11/2025 7:30 AM EDT Office Visit [facility] [address] [facility] [address], [address] [place] [address] Kacey Garcia PA-C [address] [place] [address] [email or web address] Health Maintenance Due Date Last Done Comments DEPRESSION SCREENING 1966 PNEUMOCOCCAL VACCINES (50+ years) (1 of 2 - PCV) 1973 MAMMOGRAM 1994 COLOGUARD 09/08/1999 COLONOSCOPY 09/08/1999 COLORECTAL CANCER SCREENING 09/08/1999 FIT TEST 09/08/1999 FOBT 09/08/1999 SIGMOIDOSCOPY 09/08/1999 VIRTUAL COLONOSCOPY 09/08/1999 DIABETIC EYE EXAM 12/13/2017 URINE MICROALBUMIN/CREATININE RATIO 12/13/2017 OSTEOPOROSIS SCREENING INITIAL (ONE-TIME) 09/08/2019 HEMOGLOBIN A1C 08/04/2020 02/04/2020 ZOSTER VACCINES (2 of 2) 06/13/2021 04/18/2021 INFLUENZA VACCINE (#1) 2024 3, 06/26/2020, 02/16/2019, Additional history exists COVID-19 VACCINE ( season) 2024 02/05/2023, 03/06/2022, 03/08/2021, Additional history exists BLOOD PRESSURE 08/11/2025 02/10/2025 SMOKING Hx and SMOKELESS TOBACCO SCREENING 02/10/2026 02/10/2025 Adult Td,Tdap Booster 10/25/2032 10/25/2022 HEPATITIS C SCREENING Completed 03/24/2020 , 03/24/2020, 03/24/2020 RSV VACCINE Completed 02/05/2023 HEPATITIS A VACCINES Aged Out No long er eligible based on patient's age to complete this topic HIB VACCINES Aged Out No longer eligi ble based on patient's age to complete this topic IPV VACCINES Aged Out No longer eligi ble based on patient's age to complete this topic MENINGOCOCCAL VACCINES (ACWY) Aged Out No longer eligible based on patient's age to complete this topic MENINGOCOCCAL VACCINES (B) Aged Out N o longer eligible based on patient's age to complete this topic Medical Devices Implanted Type Area Associate Software Application Engineer Device Identifier Shelf Expiration Date Model / Serial / Lot Stent Implanted:Qty: 2 Stent Heart Procedures Procedure Name Priority Date/Time Associated Diagnosis Comments HEPATITIS C ANTIBODY, QUALITATIVE STAT 03/24/2020 3:35 AM EST HEMOGLOBIN A1C Routine 02/04/2020 2:04 PM EDT Type 2 diabetes mellitus with other specified complication, unspecified whether care home insulin use from Last 3 Months or Most Recently Relevant to Health Maintenance Results * Hepatitis C antibody, qualitative (03/24/2020 3:35 AM EST) HCV NON-REACTIV E NON-REACTI VE [facility] Blood 03/24/2020 3:35 AM EST 03/24/2020 3:42 AM EST us Sis Ann PA-C LAB BLOOD BKR OR DERABLES Final Result [facility] [address] [place] [address] * (ABNORMAL) Hemoglobin A1c (02/04/2020 2:04 PM EDT) HEMOGLOBIN A1C 7.1(H) 4.3 - 5.8 % [facility] Blood 02/04/2020 2:04 PM EDT 02/04/2020 2:08 PM EDT Edward Geronimo MD LAB BLOOD BKR ORDERABLE S Final Result [facility] [address] [place] [address] from Last 3 Months or Most Recently Relevant to Health Maintenance Insurance [employer] ENHANCE SUPPLEMENT MEDICARE PART A & B [employer] ENHANCE SUPPLEMENT [facility] Address: [address] [place] [address] MEDICARE PART A & B ([place]) [address] [place] [address] [employer] ENHANCE SUPPLEMENT MEDICARE PART A & B [facility] MEDICARE ENHANCE SUPPLEMENT MEDICARE PART A & B [facility] MEDICARE ENHANCE SUPPLEMENT MEDICARE PART A & B Member Subscriber Plan / Payer (Ef fective 2020-Present) Name:Marielle Soria Member ID:[id number] Relation to Subscriber:Self Name:Marielle Soria Subscriber ID:[id number] Payer ID:[id number] Group ID:Not on file Type:Medicare Address: [place] [address] [place] [phone] MEDICARE PART A & B Member Subscriber Plan / Payer ( fective 2020-Present) Name:Marielle Soria Member ID:[id number] Relation to Subscriber:Self Name:Marielle Soria Subscriber ID:[id number] Payer ID:[id number] Group ID:Not on file Type:Medicare Address: [place] [address] [place] [phone] Advance Directives For more information, please contact: [phone] (9AM - 5PM Charity/[facility], Sunday-Sunday) * Full Code (Confirmed) (Latest Code Status on File) Date Activated Date Inactivated Comments 12/13/2017 2:14 PM 12/14/2017 4:04 PM Question Answer Comments Code Status Confirmed With: Patient Care Teams Greens Tier Relationship Specialty Start Date End Date Pcp, Not Required [address] [place] [id number] PCP - General 08/11/24 Additional Source Comments The information contained in this document represents components of the legal health record. It is not the complete legal health record.[facility]
== END 2025-03-02 09:55 | disposition home or self-care (01) ==
PROVIDERS: PCP Physician Assistant; Visit Provider Physician Assistant
DX: E11.40 Type 2 diabetes mellitus with diabetic neuropathy, unspecified (principal); Z79.4 Long term (current) use of insulin; E78.5 Hyperlipidemia, unspecified; E55.9 Vitamin D deficiency, unspecified; M85.80 Other specified disorders of bone density and structure, unspecified site

== ENCOUNTER → 2025-03-02 09:09 | Outpatient (BNVA) | payer MEDICARE, OTHER, SELFPAY | PROVIDERS: PCP Internal Medicine; Visit Provider Physician Assistant | DX: E11.40 Type 2 diabetes mellitus with diabetic neuropathy, unspecified (principal); E78.5 Hyperlipidemia, unspecified; E55.9 Vitamin D deficiency, unspecified; M85.80 Other specified disorders of bone density and structure, unspecified site; I25.10 Atherosclerotic heart disease of native coronary artery without angina pectoris; K21.9 Gastro-esophageal reflux disease without esophagitis; G25.81 Restless legs syndrome; G43.909 Migraine, unspecified, not intractable, without status migrainosus; Z96.41 Presence of insulin pump (external) (internal); Z79.4 Long term (current) use of insulin; Z79.82 Long term (current) use of aspirin | CPT/HCPCS: 99212 ==